=== PATIENT | female | born 1945 | race Caucasian/White ===

== ENCOUNTER 2018-04-20 07:05 | Outpatient (CLI) | payer MEDICARE, OTHER, SELFPAY ==
--- NOTE | 2018-04-20 10:52 | DI.RAD_ITS ---
SYMPTOMS/DIAGNOSIS: SUSHILA BACK AND HIP PAIN, M85.80, OSTEOPENIA BILATERAL HIPS AND PELVIS: The hip joints appear symmetric and well maintained with out significant joint space narrowing. There are mild degenerative changes seen at the sacroiliac joints. Mild degenerative changes are seen in the lower lumbar spine. The bones are normally mineralized. The soft tissues are unremarkable. IMPRESSION: 1. Symmetric and unremarkable hips. 2. Mild degenerative changes seen in the lower lumbar spine.
== END 2018-04-20 07:25 ==
DX: M54.5 Low back pain (principal); M25.551 Pain in right hip; M25.552 Pain in left hip; M47.816 Spondylosis without myelopathy or radiculopathy, lumbar region; M85.88 Other specified disorders of bone density and structure, other site
CPT/HCPCS: 73521

== ENCOUNTER 2018-07-26 02:05 | Outpatient (CLI) | payer MEDICARE, OTHER, SELFPAY ==
[2018-07-26 10:55] LABS: ALT 30 U/L (12-78); AST 17 U/L (15-37); Alkaline Phosphatase 89 U/L (46-116); Anion Gap 8.8 mmol/L (3-11); BUN 14 mg/dL (7-18); Bilirubin, Total 0.8 mg/dL (0.2-1.0); CO2 29.2 mmol/L (21.0-32.0); CREATININE 0.79 mg/dL (0.55-1.02); Calcium 9.6 mg/dL (8.5-10.1); Chloride 102 mmol/L (98-107); Cholesterol 248 mg/dL (50-200); Glucose 90 mg/dL (70-100); HDL Cholesterol 94 mg/dL (40-60); LDL CHOLESTEROL 131 mg/dL (<100); Potassium 4.3 mmol/L (3.5-5.1); Sodium 140 mmol/L (136-145); Total Protein 7.2 g/dL (6.4-8.2); Triglyceride 64 mg/dL (30-150)
== END 2018-07-26 02:25 ==
DX: I10 Essential (primary) hypertension (principal); I83.90 Asymptomatic varicose veins of unspecified lower extremity; M25.551 Pain in right hip; M54.5 Low back pain
CPT/HCPCS: 36415; 80053; 80061; 83721

== ENCOUNTER 2019-08-07 03:35 | Outpatient (CLI) | payer MEDICARE, OTHER, SELFPAY ==
[2019-08-07 11:19] LABS: ALT 25 U/L (14-59); AST 25 U/L (15-37); Albumin 4.2 g/dL (3.4-5.0); Alkaline Phosphatase 92 U/L (46-116); Anion Gap 8.7 mmol/L (3-11); BUN 14 mg/dL (7-18); Bilirubin, Total 1.1 mg/dL (0.2-1.0); CO2 29.3 mmol/L (21.0-32.0); CREATININE 0.88 mg/dL (0.55-1.02); Calcium 9.6 mg/dL (8.5-10.1); Chloride 105 mmol/L (98-107); Glucose 89 mg/dL (74-106); Potassium 4.6 mmol/L (3.5-5.1); Sodium 143 mmol/L (136-145); Total Protein 7.1 g/dL (6.4-8.2)
== END 2019-08-07 03:55 ==
DX: H91.90 Unspecified hearing loss, unspecified ear (principal); I10 Essential (primary) hypertension; M25.552 Pain in left hip; M54.5 Low back pain
CPT/HCPCS: 36415; 80053

== ENCOUNTER 2020-02-16 11:26 | Emergency (ER) | payer MEDICARE, OTHER, SELFPAY ==
[2020-02-16] VITALS (13 sets, daily range): BP systolic 141–177; BP diastolic 77–98; PULSE 53–84; RESP 9–32; TEMP 36.8; O2SAT 98–100
--- NOTE | 2020-02-16 11:15 | RT.EKG_ITS ---
APPROVED REPORT Exam: Resting ECG Patient Location: E HR:59 bpm ECG Measurements Heart Rate 59 AXIS IL 156 P 53 QRSd 107 QRS 28 QT 405 T -8 QTc 400 Conclusion Sinus rhytm, rate 60 LVH with secondary repolarization abnormality...multi-LVH criteria, abnrm ST-T. Similar to 07/01/13
--- NOTE | 2020-02-16 11:49 | ED.GENADUL_ITS ---
Discharge Plan Disposition Patient Disposition: HOME Condition: Improving Discharge Details Clinical Impression: GERD (gastroesophageal reflux disease) Primary Care Provider: Jamila Chinchilla ED Provider: Jason Bautista Home Meds and New Rx's Prescriptions: New sucralfate [Carafate] 100 mg/mL suspension 10 ml PO QACHS 30 Days Qty: 1200 RF: 0 Continued acetaminophen 500 mg capsule 500 mg PO QID PRNRF: 0 Fiber Laxative (methylcellulo) 500 mg tablet 500 mg PO DAILY RF: 0 omeprazole 20 mg capsule,delayed release(DR/EC) 20 mg PO DAILY Qty: 30 RF: 1 cholecalciferol (vitamin D3) 1,000 UNIT capsule 1,000 unit PO DAILY Qty: 100 RF: 4 spironolactone 25 mg tablet 25 mg PO DAILY Qty: 90 RF: 4 No Action ibuprofen [Advil] 200 MG tablet 200 - 600 mg PO TID PRN RF: 0 Discharge Instructions Instructions: GERD (Gastroesophageal Reflux Disease) (ED) Additional Instructions: Avoid fatty, fried, spicy, tomato sauce-based foods. Avoid eating 2 to 3 hours prior to bedtime. Continue to sleep with head of the bed elevated 2-3 pillows. Continue your regular medications but minimize ibuprofen/Advil/Motrin as much as possible. We will have you begin 1 month trial of Carafate as we discussed. Return to the emergency department for any acute concerns. Medical Decision Making 74-year-old female presents on referral from urgent care appointment. She has had 2+ weeks of burning epigastric pain that radiates to her back. Does seem worse or heavier with eating. Often is worse at night. She was placed on omeprazole at her initial visit 2 weeks ago with minimal improvement. She now presents for evaluation of persistent discomfort. She arrives to the ER with blood pressure 177/89, pulse 71, normal oxygenation and no fever. She is tender in the epigastrium. Differential diagnosis includes pancreatitis, mass, persistent GERD, or atypical presentation of acute coronary syndrome. Patient had IV access established, given my plan to, referred for EKG and laboratory testing. She is given a GI cocktail. White blood cell count is 5, hematocrit 40, platelets 284. Chemistries unremarkable with BUN 11, creatinine 0.8. LFTs within normal limits, lipase 69, troponin negative. D-dimer 538. Given the presentation and differential diagnosis under consideration, patient underwent CT scan of the chest, abdomen and pelvis. She has hyper aerated lungs, no acute abnormality noted in the chest. Unremarkable evaluation of the abdomen pelvis. Please see formal report. Patient was observed on a campus monitor and repeat troponin obtained and negative as well. Discussed with patient that we will increase and acid control. We will ask care management to make her a follow-up in the outpatient setting for recheck. She will continue with some lifestyle modifications. She will return for escalation of pain or any other acute concerns. HPI General Mode of arrival: ambulatory . Date/Time Provider Initiated Documentation: 02/16/20 11:26 . Limitations to Documentation: no limitations . Information obtained by: patient . History of Present Illness 74 year old F presents to the emergency department with the chief complaint of Epigastric pain for 2 weeks, referred from urgent care, described as moderate, Quality is d escribed as dull, and is localized to the abdomen. Patient reports radiation to back. Patient started experiencing this day(s) and it has been intermittent. No relieving factors improve symptom(s), Eating worsens symptoms . Patient notes denies fever/chills, loss of appetite and nausea/vomiting. Patient did receive the following treatments prior to arrival, none Related Data Home Medications Medication Instructions Recorded Confirmed cholecalciferol (vitamin D3) 1,000 unit PO DAILY #100 tab-cap 04/13/14 02/16/20 ibuprofen [Advil] 200 - 600 mg PO TID PRN tab-cap 12/03/14 02/16/20 acetaminophen 500 mg capsule 500 mg PO QID PRN cap 06/12/18 02/16/20 spironolactone 25 mg tablet 25 mg PO DAILY #90 tab-cap 03/22/19 02/16/20 methylcellulose (laxative) 500 mg 500 mg PO DAILY 08/02/19 02/16/20 tablet omeprazole 20 mg capsule,delayed 20 mg PO DAILY #30 cap 02/08/20 02/16/20 release sucralfate [Carafate] 10 ml PO QACHS 30 Days #1200 ml 02/16/20 Previous Rx's Medication Instructions Recorded spironolactone 25 mg tablet 25 mg PO DAILY #90 tab-cap 03/22/19 omeprazole 20 mg capsule,delayed 20 mg PO DAILY #30 cap 02/08/20 release sucralfate [Carafate] 10 ml PO QACHS 30 Days #1200 ml 02/16/20 Allergies Allergy/AdvReac Type Severity Reaction Status Date / Time gabapentin AdvReac Severe HALLUCINATI Verified 02/16/20 11:33 ONS BALSAM TREES AdvReac Intermediate ITCHY EYES Uncoded 02/16/20 11:33 SEASONAL ALLERGIES AdvReac Intermediate ITCHY AND Uncoded 02/16/20 11:33 RUNNY EYES General Stated Complaint: Chest Pain NOELLE: 2 Review of Systems Narrative: 6 systems reviewed and otherwise negative [facility] Medical History Bilateral low back pain without sciatica (12/03/14) Essential hypertension (06/01/13) Hearing loss (01/27/06) A.D. 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 w/o sxs Vitamin D deficiency (04/09/14) Surgical History Ligation of fallopian tube Oophrectomy, Left (~2010) with sapingectomy - benign serous cystadenofibroma. Family History Mother , 95 Essential hypertension Stroke Father , 77 CAD (coronary artery disease) Heart disease Prostate cancer Brother , 40 CAD (coronary artery disease) Heart disease Sister Essential hypertension Sister No problems noted. Maternal Grandfather No problems noted. Paternal Grandfather No problems noted. Maternal Grandmother Cancer Paternal Grandmother , CHILDBIRTH No problems noted. Son No problems noted. Son Hyperlipidemia Daughter No problems noted. Social History Smoking/Tobacco Use Status: Former Tobacco Use Quit Date: 02/28/1965 Smoking risk assessment performed?: Yes Alcohol Intake: current Alcohol Intake frequency: 0-2 drinks per day Alcohol type: wine Drug use: Never Substance use type: does not use Counseling given: No Counseling provided: none Caregiver/Support person: No Household members: spouse Housing: house Do you need help understanding health information?: Never Pets and animals: No Sexually active: Yes Do you think of yourself as: straight/heterosexual Current gender identity: female What is your relationship status?: How often do you talk on the phone with friends or family?: three or more times per week How often do you get together with friends or relatives?: three or more times per week How often do you attend sabianism or rastafarian services?: 4 or more times per year Do you belong to any clubs or organized social groups?: yes Panel score (0-1 are the most socially isolated patients): 4 What type of physical activity do you participate in: walking and yoga Duration: 60-90 minutes/day Frequency: decline to answer Melani/Restorationist: Gnosticist Special melani needs: No Seatbelt use: always Helmet use: Yes Helmet use: always Drive intox or ride w/intox steam train driver: No Do you feel safe at home: Yes Do you feel safe in your relationship?: Yes Exam Narrative Exam Narrative: GEN: awake, alert, oriented 3. Pleasant, well groomed, interactive. HEAD: Normocephalic, atraumatic ENT: Mucous membranes moist, oropharynx unremarkable, External ear exam unremarkable EYES: PERRL, EOMI NECK: Full ROM, no LAURA, no menigismus CHEST/RESP: Nontender, clear to auscultation bilateral, no wheeze/rhonchi/rales CARDIOVASCULAR: RRR, no murmur, rub huan. 2+ Rad pulse bilateral ABDOMEN: Soft, epigastric tenderness without rebound or guarding, no mass. +Bowel sounds Back: No midline tenderness, step-off or deformity, no flank tenderness EXT: Full ROM, no edema, no rash Neuro: Grossly normal neurologic exam, conversant, interactive. Psych: Speech fluent, thoughts congruent, affect normal Course Vital Signs Vital signs: Vital Signs Temperature 36.8 C 02/16/20 11:29 Pulse 71 02/16/20 11:29 Respiratory Rate 12 02/16/20 11:29 Blood Pressure 177/89 H 02/16/20 11:29 Pulse Oximetry 99 02/16/20 11:29 Temperature 36.8 C 02/16/20 11:29 Temperature Source Skin 02/16/20 11:29 Pulse 71 02/16/20 11:29 Respiratory Rate 12 02/16/20 11:39 Respiratory Effort Non-Labored 02/16/20 11:39 Respiratory Depth Normal 02/16/20 11:39 Respiratory Pattern Normal 02/16/20 11:39 Blood Pressure 177/89 H 02/16/20 11:29 Blood Pressure Position Supine 02/16/20 11:29 Pulse Oximetry 99 02/16/20 11:29 Oxygen Delivery Method Room Air 02/16/20 11:29 Oxygen Flow Rate 0 02/16/20 11:29 Pain Level 4 02/16/20 11:39
[2020-02-16 12:08] LABS: Abs Immature Grans 0.01 10^3/uL (0.0-0.06); Absolute Basophil Count 0.04 10^3/uL (0.0-0.2); Absolute Eosinophil Count 0.05 10^3/uL (0.0-0.7); Absolute Lymphocyte Count 1.51 10^3/uL (1.2-3.4); Absolute Monocyte Count 0.71 10^3/uL (0.1-0.8); Absolute Neutrophil Count 3.07 10^3/uL (1.2-6.7); Basophils % 0.7; Eosinophils % 0.9; HCT 40.3 % (36.0-46.0); HGB 13.5 g/dL (11.2-15.7); Immature Grans % 0.2; MCH 30.3 pg (27.0-33.0); MCHC 33.5 % (32.0-36.0); MCV 90.6 fL (80-95); MPV 11.4 fL (8.0-11.0); Monocytes % 13.2; Nucleated RBC 0 %; Platelet Count 284 10^3/uL (130-400); RBC 4.45 10^6/uL (3.93-5.22); RDW 11.5 % (11.7-14.6); RDW-SD 38.2 fL; WBC 5.39 10^3/uL (4.4-10.8)
[2020-02-16 12:23] LABS: ALT 19 U/L (14-59); AST 18 U/L (15-37); Albumin 4.3 g/dL (3.4-5.0); Alkaline Phosphatase 91 U/L (46-116); Anion Gap 8.2 mmol/L (3-11); BUN 11 mg/dL (7-18); Bilirubin, Total 0.7 mg/dL (0.2-1.0); CO2 27.8 mmol/L (21.0-32.0); CREATININE 0.85 mg/dL (0.55-1.02); Calcium 9.7 mg/dL (8.5-10.1); Chloride 100 mmol/L (98-107); Glucose 89 mg/dL (74-106); Lipase 69 U/L (73-393); Magnesium 1.8 mg/dL (1.8-2.4); Potassium 3.6 mmol/L (3.5-5.1); Sodium 136 mmol/L (136-145); Total Protein 7.9 g/dL (6.4-8.2); Troponin I < 0.05 ng/mL (<0.06)
--- NOTE | 2020-02-16 12:25 | DI.CT_ITS ---
EXAM: CT CHEST/ABD/PEL W CLINICAL HISTORY: epigastric pain, radiates to back, anorexic TECHNIQUE: Imaging Protocol: Axial computed tomography images with coronal and sagittal reformatted images were created and reviewed CONTRAST MATERIAL: Intravenous: Omnipaque 350 Contrast volume:99 mL Oral: No COMPARISON: CT ABD PELVIS WITH CONTRAST from 10/14/2010 FINDINGS: CHEST: Tracheobronchial tree: Patent where visualized. Mediastinum and Jeanette: No dominant adenopathy or fluid collection. Pulmonary parenchyma: No consolidation or dominant measurable mass. No architectural distortion. Pleura: No effusion or pneumothorax. Heart: The heart is not dilated. Mild coronary artery calcification. No pericardial effusion. Aorta: Thoracic aorta non-dilated. Mild atherosclerosis. Lymph nodes: Within normal limits. Bones:Degenerative changes. Soft tissues: Unremarkable. ABDOMEN: Liver: Normal density. No measurable mass. Portal, Superior Mesenteric, and Splenic Veins: Unremarkable. Gallbladder and Biliary Tract: No radiodense calculus or dilation. Pancreas: Normal density, no abnormal calcifications or inflammatory process. Spleen: Normal. Adrenals: There is again seen a peripherally calcified left adrenal mass. A right adrenal gland is u nremarkable. Kidneys: Normal size, contour and axis. No radiodense stones or obstructive uropathy. No masses seen. Note is made of a retroaortic left renal vein. Abdominal Aorta: Abdominal portion non-dilated. Mild atherosclerosis. Bowel: No obstruction or bowel wall thickening. Appendix is unremarkable. Peritoneal Cavity: No ascites, collection or mesenteric inflammatory response. Lymph Nodes: Within normal limits. Bones: Degenerative changes in the spine. Soft Tissues: Unremarkable. PELVIS: Bladder: Symmetric distention, no gross wall thickening. Reproductive Organs: Unremarkable as visualized. Lymph Nodes: Within normal limits. Bones: Please see above. IMPRESSION: 1. No acute abdominal or pelvic process. 2. No acute pulmonary process. RADIATION DOSE DELIVERED: 957.46mGy.cm Total DLP DATA REPOSITORY: All CT scans at this facility are submitted to the National Radiology Data Registry (NRDR) Dose Index Registry (DIR) with the [employer] (ACR). RADIATION OPTIMIZATION: All CT scans at this facility use at least one of these dose optimization te chniques: automated exposure control; mA and/or kV adjustment per patient size (includes targeted exa ms where dose is matched to clinical indication); or iterative reconstruction.
[2020-02-16 12:39] LABS: D-Dimer 538 ng/mlFEU (<500)
--- NOTE | 2020-02-16 12:45 | NUR.NOTE ---
Epigastric pain improved after GI cocktail. Plan for CT with oral contrast.
[2020-02-16] MEDS: Omnipaque 350 MG/ML 100 ML BTL IV (13:45)
--- NOTE | 2020-02-16 14:40 | DI.VRAD_ITS ---
PROCEDURE INFORMATION: Exam: CT Chest With Contrast; Diagnostic Exam date and time: 02/16/2020 1:56 PM Age: 74 years old Clinical indication: Other: Epigastric pain, radiates to back; Other: Cp TECHNIQUE: Imaging protocol: Diagnostic computed tomography of the chest with intravenous contrast. Contrast material: OMNIPAQUE 350; Contrast volume: 100 ml; Contrast route: INTRAVENOUS (IV); Other contrast: Oral, omnipaque 350, 800; COMPARISON: CR CHEST 2 VIEWS PA,LAT 07/01/2013 1:34 AM. Report not available. FINDINGS: Lungs: The lungs are hyperaerated consistent with a degree of COPD. Pleural space: Unremarkable. No pneumothorax. No pleural effusion. Heart: Coronary artery calcifications/stents noted. Aorta: Unremarkable. No aortic aneurysm. Lymph nodes: Unremarkable. No enlarged lymph nodes. Bones/joints: Unremarkable. No acute fracture. Soft tissues: Unremarkable. IMPRESSION: No evidence for acute abnormality in the chest. COPD noted. PROCEDURE INFORMATION: Exam: CT Abdomen And Pelvis With Contrast Exam date and time: 02/16/2020 1:56 PM Age: 74 years old Clinical indication: Other: Epigastric pain, radiates to back; Other: Cp TECHNIQUE: Imaging protocol: Computed tomography of the abdomen and pelvis with intravenous contrast. Radiation optimization: All CT scans at this facility use at least one of these dose optimization techniques: automated exposure control; mA and/or kV adjustment per patient size (includes targeted exams where dose is matched to clinical indication); or iterative reconstruction. Contrast material: OMNIPAQUE 350; Contrast volume: 100 ml; Contrast route: INTRAVENOUS (IV); Other contrast: Oral, omnipaque 350, 800; Other technique: Technique more: GI contrast given. COMPARISON: CR CHEST 2 VIEWS PA,LAT 07/01/2013 1:34 AM FINDINGS: Liver: Normal. No mass. Gallbladder and bile ducts: Normal. No calcified stones. No ductal dilation. Pancreas: Normal. No ductal dilation. Spleen: Normal. No splenomegaly. Adrenal glands: Peripherally calcified left adrenal lesion noted 1.6 cm, possible old hemorrhage. Kidneys and ureters: Normal. No hydronephrosis. Stomach and bowel: Moderate fecal retention pattern. Appendix: No evidence of appendicitis. Intraperitoneal space: Unremarkable. No free air. No significant fluid collection. Vasculature: Unremarkable. No abdominal aortic aneurysm. Lymph nodes: Unremarkable. No enlarged lymph nodes. Urinary bladder: Unremarkable as visualized. Reproductive: Unremarkable as visualized. Bones/joints: Unremarkable. No acute fracture. Soft tissues: Unremarkable. Other findings: Probable perineural cyst S3-4. IMPRESSION: No evidence for acute abnormality to account for symptoms. Dictated and Authenticated by: Jana Benton MD. Ordering:MELIZA Gomez MD
[2020-02-16 15:09] LABS: Troponin I < 0.05 ng/mL (<0.06)
--- NOTE | 2020-02-18 07:03 | NUR.NOTE ---
Referral faxedto pcp for follow up Víctor Elliott Note:
== END 2020-02-16 15:35 | disposition home or self-care (01) ==
PROVIDERS: Emergency Provider Emergency Medicine
DX: R10.13 Epigastric pain (principal); K21.9 Gastro-esophageal reflux disease without esophagitis; I10 Essential (primary) hypertension
CPT/HCPCS: 36415; 74177; 80053; 83690; 93005; 99285; 71260; 83735; 84484; 85025; 85379; 93010; 99284; J3490

== ENCOUNTER 2020-05-12 11:20 | Outpatient (CLI) | payer MEDICARE, OTHER, SELFPAY ==
[2020-05-12 12:23] LABS: Abs Immature Grans 0.01 10^3/uL (0.0-0.06); Absolute Basophil Count 0.05 10^3/uL (0.0-0.2); Absolute Eosinophil Count 0.11 10^3/uL (0.0-0.7); Absolute Lymphocyte Count 1.74 10^3/uL (1.2-3.4); Absolute Monocyte Count 0.56 10^3/uL (0.1-0.8); Absolute Neutrophil Count 4.07 10^3/uL (1.2-6.7); Basophils % 0.8; Eosinophils % 1.7; HCT 38.8 % (36.0-46.0); HGB 12.8 g/dL (11.2-15.7); Immature Grans % 0.2; Lymphocytes % 26.6; MCH 30.7 pg (27.0-33.0); MPV 11.3 fL (8.0-11.0); Monocytes % 8.6; Neutrophils % 62.1; Nucleated RBC 0 %; Platelet Count 308 10^3/uL (130-400); RBC 4.17 10^6/uL (3.93-5.22); RDW 12.1 % (11.7-14.6); RDW-SD 42.2 fL; WBC 6.54 10^3/uL (4.4-10.8)
[2020-05-12 13:20] LABS: ALT 23 U/L (14-59); AST 21 U/L (15-37); Alkaline Phosphatase 81 U/L (46-116); Anion Gap 8.5 mmol/L (3-11); BUN 12 mg/dL (7-18); Bilirubin, Total 0.7 mg/dL (0.2-1.0); CO2 31.5 mmol/L (21.0-32.0); CREATININE 0.7 mg/dL (0.55-1.02); Calcium 9.7 mg/dL (8.5-10.1); Chloride 102 mmol/L (98-107); Glucose 89 mg/dL (74-106); Potassium 4.3 mmol/L (3.5-5.1); Sodium 142 mmol/L (136-145); TSH 1.54 uIU/mL (0.36-3.74); Total Protein 7.2 g/dL (6.4-8.2)
== END 2020-05-12 11:21 | disposition home or self-care (01) ==
LOC: LOS 11:20
PROVIDERS: PCP Family Medicine; Visit Provider Family Medicine
DX: R53.83 Other fatigue (principal); E55.9 Vitamin D deficiency, unspecified; R90.89 Other abnormal findings on diagnostic imaging of central nervous system
CPT/HCPCS: 36415; 80053; 84443; 85025

== ENCOUNTER 2020-11-24 02:22 | Outpatient (CLI) | payer MEDICARE, SELFPAY ==
--- NOTE | 2020-11-24 10:46 | DI.MAMMO_ITS ---
Exam(s) MAMMO SCREENING EXAM: MAMMO SCREENING CLINICAL HISTORY: screening,Z12.39. TECHNIQUE: Bilateral full field digital CC and MLO mammographic images were obtained with 3D tomosyn thesis and utilizing computer aided detection (CAD). COMPARISON: Prior mammograms dating back to 2012, the most recent being April 2017. FINDINGS: There are no new spiculated masses nor malignant appearing microcalcification groups. There is no significant architectural distortion nor skin thickening-retraction. IMPRESSION: No radiographic evidence of malignancy. BI-RADS Category 1 - Negative Breast Density - Category B - Scattered areas of fibroglandular density Breast density Category C or D implies that the patient has dense breast tissue. Dense breast tissue can make it harder to find cancer on a mammogram. Dense breast tissue is also associated with an incr eased risk of breast cancer. This information about the result of the mammogram report was provided to the patient to raise their awareness. Use this report when you speak with the patient about their risks for breast cancer, which includes their family history. At that time, you may recommend additional screening tests (Ultrasoun d or MRI) as these tests may add significant information. A negative radiographic report should not delay biopsy if a dominant or clinically suspicious mass is present. Up to ten percent of cancers are not identified on mammography. A negative report may reinforce clinical impression. Adenosis and dense breasts may obscure an underlying neoplasm. False positive reports average 6 to 10%. Patient will receive a letter notifying them of these results.
== END 2020-11-24 02:42 ==
PROVIDERS: PCP Family Medicine; Visit Provider Family Medicine
DX: Z12.31 Encounter for screening mammogram for malignant neoplasm of breast (principal)
CPT/HCPCS: 77063; 77067

== ENCOUNTER 2021-08-30 10:04 | Emergency (ER) | payer MEDICARE, OTHER, SELFPAY ==
[2021-08-30 10:17] VITALS: BP 215/89; PULSE 58; RESP 18; TEMP 36.7; O2SAT 99
--- NOTE | 2021-08-30 10:30 | DI.RAD_ITS ---
Exam(s) XR HUMERUS LT EXAM: XR HUMERUS LT CLINICAL HISTORY: fall. TECHNIQUE: 2D digital imaging was performed. COMPARISON: No exams were available for comparison FINDINGS: 3 views There is a comminuted and mildly impacted fracture of the humeral head-neck. Greater tuberosity is a lso fractured. Minimal displacement. No dislocation glenohumeral joint. No fracture seen more dist ally in the humerus and elbow region on these images IMPRESSION: Comminuted fracture of the humeral head-neck. DATA REPOSITORY: RADIATION DOSE DELIVERED:
--- NOTE | 2021-08-30 11:10 | DI.VRAD_ITS ---
PROCEDURE INFORMATION: Exam: XR Left Humerus Exam date and time: 08/30/2021 10:56 AM Age: 76 years old Clinical indication: Injury or trauma; Fall; Blunt trauma (contusions or hematomas); Shoulder; Left TECHNIQUE: Imaging protocol: Radiologic exam of the Left humerus. Views: 2 or more views. COMPARISON: CT CHEST/ABD/PEL W 02/16/2020 1:50 PM FINDINGS: Bones/joints: Bony structures are osteopenic. There is a comminuted fracture of the proximal left humerus including the neck and the greater tuberosity which is a separate fracture fragment. No fracture is seen in the distal humerus. The scapula, visualized left upper ribs appear intact on the film. Soft tissues: Soft tissues are unremarkable. IMPRESSION: Comminuted fracture proximal left humerus. Dictated and Authenticated by: Ethel Bennett MD. Ordering:ELIZABETH Ricks MD
--- NOTE | 2021-08-30 11:14 | W.ED.GENAD ---
Discharge Plan Disposition Patient Disposition: HOME Condition: Stable Discharge Details Clinical Impression: Closed fracture of left proximal humerus, Hypertension Primary Care Provider: Vero Sanchez ED Provider: Millicent Veronica Home Meds and New Rx's Prescriptions: New oxycodone 5 mg tablet 5 mg PO TID PRN (Reason: pain) Qty: 7 0RF lisinopril 10 mg tablet 10 mg PO DAILY Qty: 20 0RF Continued acetaminophen 500 mg capsule 500 mg PO QID PRN Fiber Laxative (methylcellulo) 500 mg tablet 500 mg PO DAILY cholecalciferol (vitamin D3) 1,000 UNIT capsule 1,000 unit PO DAILY Qty: 100 ibuprofen [Advil] 200 MG tablet 200 - 600 mg PO TID PRN Discharge Instructions Instructions: Arm Fracture in Adults (ED), Hypertension (ED) Additional Instructions: As we discussed, you have a fracture to the upper aspect of your left humerus. I would like for you to follow-up with orthopedics. Please call Tuesday to schedule appointment, number listed below. In the meantime, please encourage rest, ice, elevation. May continue with Tylenol and/or ibuprofen as needed for discomfort. If this is insufficient at alleviating her discomfort, you may use the oxycodone as prescribed. However, please do not drive or drink alcohol while using this medication and keep in a safe place. If you develop any new or worsening symptoms please seek care urgently once again. Your blood pressure was notably elevated here today. As discussed, we are starting you on a daily dose of lisinopril. You were given your dose here today. Next dose is due tomorrow, this is also available at [facility]. Please continue to monitor blood pressure at home and record these. Please discuss with primary care call today to schedule follow-up appointment in the next week for reevaluation Referrals: Ozzy Cid MD [ [facility] STAFF PHYSICIAN] - Discharge Data Discharge Date/Time-TO BE ENTERED AT DEPARTURE: 08/30/21 13:00 Medical Decision Making Patient is a pleasant [id number]-[id number] 76-year-old female accompanied by her , chief complaint of left upper arm pain. Patient reports that she was cooking this morning in her kitchen when she accidentally tripped over a stool leg and fell landing on her left shoulder. States that she suffered some slight ecchymosis to bilateral knees but these are nontender currently. Has been ambulatory since the incident. She denies any numbness or tingling. No headache, head injury. Denies any neck or back pain. On exam, patient appears anxious and uncomfortable. She is splinting the left upper arm. Patient is notably hypertensive. She is neurovascularly intact, in particular axillary nerve function is normal. 2+ distal pulses. She does have good range of motion of the elbow although she does have some radiation of pain from the upper aspect of the humerus with, in particular, extension of the elbow. 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 No pain or deformity to the clavicle. No C-spine tenderness. No swelling, opening of the skin tenting. Will obtain x-rays to evaluate for potential fracture. FINDINGS: Bones/joints: Bony structures are osteopenic. There is a comminuted fracture of the proximal left humerus including the neck and the greater tuberosity which is a separate fracture fragment. No fracture is seen in the distal humerus. The scapula, visualized left upper ribs appear intact on the film. Soft tissues: Soft tissues are unremarkable. IMPRESSION: Comminuted fracture proximal left humerus. Discussed these findings with the patient. Will refer to orthopedics. Will place in sling for immobilization. Encouraged rest, ice, elevation. Tylenol and ibuprofen as needed for discomfort. Patient and I discussed pain management at length. Have decided for a short course of oxycodone in the event pain becomes unmanageable, particularly at night. We did discuss the side effects and risks associated with this medicine. Abdulaziz was initially to be quite hypertensive, this was thought to be with her discomfort exacerbating her underlying known HTN. Patient does not take antihypertensivees. She was stopped one year ago. States that her BP fluctuates frequently. Can be quite low with systolic in the 90s making medication more difficult. Patient has no symptoms of hypertenisve emergency. Despite pain being much more managed, her BP continues to be 229/101. This was manual BP with patient resting. Concerned that despite there being no sxs of hypertensive emergency at this time, concerned that this level of elevation is unacceptable and could signficantly increase risk snf. Will touch base with PCP leslie. Consulted with Dr. Harrison regarding patients elevated BP. We discussed the concern of her signficantly elevated BP, but also her hx of signficantly labile BP and intermittent lightheadedness with standing too abruptly. She recommended either starting patient on 10mg Lisinopril QD or 0.1 Clonidine which she could use PRN. Discussed these options with patient and her , they prefer the daily dosing as she has no sxs of her HTN. She was given first dose here. I encouraged that she monitor BP at home, she has BP cuff at home. I did encourage that she stand slow as she has had this sensation of lightheadedness historically. Encouraged that she f/u with PCP to discuss BP and medications further. In regard to fracture, she will continue to wear the sling. [employer]curage RICE. Pain management as above. Referral to orthopedics. She will call Tuesday to schedule appointment. Return precautiosn discussed. All of her questions and concerns were addressed, she is in agreement with this plan. HPI General Date/Time Provider Initiated Documentation: 08/30/21 10:21. Limitations to Documentation: no limitations. Information obtained by: patient, family and RN notes reviewed. History of Present Illness 76 year old F presents to the emergency department with the chief complaint of left arm pain, described as severe, Quality is described as constant, and is localized to the left and upper extremity. Patient extremity (from proximal humerus toward the elbow). Patient started experiencing this minute(s) and it has been constant. Immobilization improves symptom(s), Movement worsens symptoms . Patient notes no other symptoms.. Patient did receive the following treatments prior to arrival, none Related Data Home Medications Medication Instructions Recorded Confirmed cholecalciferol (vitamin D3) 25 1,000 unit PO DAILY #100 tab-caps 04/13/14 08/30/21 mcg (1,000 unit) capsule ibuprofen 200 mg tablet (Advil) 200 - 600 mg PO TID PRN 12/03/14 08/30/21 acetaminophen 500 mg capsule 500 mg PO QID PRN 06/12/18 08/30/21 methylcellulose (laxative) 500 mg 500 mg PO DAILY 08/02/19 08/30/21 tablet (Fiber Laxative (methylcellulose)) lisinopril 10 mg tablet 10 mg PO DAILY #20 tabs 08/30/21 oxycodone 5 mg tablet 5 mg PO TID PRN pain #7 tabs 08/30/21 Previous Rx's Medication Instructions Recorded lisinopril 10 mg tablet 10 mg PO DAILY #20 tabs 08/30/21 oxycodone 5 mg tablet 5 mg PO TID PRN pain #7 tabs 08/30/21 Allergies Allergy/AdvReac Type Severity Reaction Status Date / Time shrimp Allergy Mild Hives Verified 04/30/21 13:11 gabapentin AdvReac Severe HALLUCINATI Verified 04/30/21 13:11 ONS BALSAM TREES AdvReac Intermediate ITCHY EYES Uncoded 04/30/21 13:11 SEASONAL ALLERGIES AdvReac Intermediate ITCHY AND Uncoded 04/30/21 13:11 RUNNY EYES General Stated Complaint: Orthopedic NOELLE: 4 Review of Systems Constitutional Constitutional: Reports as per HPI, Denies chills, Denies fever(s) and Denies headache(s) ENT Ears, Nose, Mouth, and Throat: Denies headache(s) Musculoskeletal Musculoskeletal: Reports as per HPI and Denies tingling Integumentary/Breasts Skin/Breast: Reports as per HPI, Denies rash and Denies wounds Neurologic Neurologic: Reports as per HPI, Denies headache(s), Denies tingling and Denies paresthesias PFSH All Active Problems (Updated 08/30/21 @ 12:40 by NANCY Luu) Closed fracture of left proximal humerus (Acute) Hypertension (Chronic) Gastroesophageal reflux disease (Chronic) Allergic reaction (Acute) Anxiety and depression (Chronic) History of bilateral ligation of fallopian tubes (Acute) History of unilateral oophorectomy (Acute) Magnetic resonance imaging of brain abnormal (Acute 06/01/13) Neuropathy (Acute 06/01/13) Ovarian cyst (Acute 12/08/10) Hip pain, left (Acute) Bilateral low back pain without sciatica (Acute 12/03/14) Essential hypertension (Chronic 06/01/13) Hearing loss (Chronic 01/27/06) A.D. 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 w/o sxs Vitamin D deficiency (Chronic 04/09/14) Medical History Nausea Surgical History Ligation of fallopian tube Oophrectomy, Left (~2010) with sapingectomy - benign serous cystadenofibroma. Family History Mother , 95 Essential hypertension Stroke Father , 77 CAD (coronary artery disease) Heart disease Prostate cancer Brother , 40 CAD (coronary artery disease) Heart disease Sister Essential hypertension Sister No problems noted. Maternal Grandfather No problems noted. Paternal Grandfather No problems noted. Maternal Grandmother Cancer Paternal Grandmother , CHILDBIRTH No problems noted. Son No problems noted. Son Hyperlipidemia Daughter No problems noted. Social History Smoking/Tobacco Use Status: Former Tobacco Use Quit Date: 02/28/1965 Second Hand Exposure: Yes Smoking risk assessment performed?: Yes Alcohol Intake: current Alcohol Intake frequency: a few times a week Alcohol type: wine Drug use: Never Substance use type: does not use Counseling given: No Counseling provided: none Caregiver/Support person: No Household members: spouse Housing: house Communication Needs: Hard of Hearing and Corrective Lenses Do you need help understanding health information?: Rarely Pets and animals: No Sexually active: Yes Do you think of yourself as: straight/heterosexual Current gender identity: female What is your relationship status?: How often do you talk on the phone with friends or family?: three or more times per week How often do you attend shinto or buddhist services?: 4 or more times per year Do you belong to any clubs or organized social groups?: yes Panel score (0-1 are the most socially isolated patients): 4 What type of physical activity do you participate in: walking and yoga Duration: 60-90 minutes/day Frequency: 3-4 times per week Melani/Lutheran: Anglican Seatbelt use: always Helmet use: Yes Helmet use: always Drive intox or ride w/intox lifter driver: No Do you feel safe at home: Yes Do you feel safe in your relationship?: Yes Exam Const General: cooperative, healthy appearing, uncomfortable (splinting left arm), no acute distress, well developed and well groomed Nutritional Appearance: average body habitus and well nourished Orientation: alert and awake Resp Effort & Inspection: normal respiratory effort, able to speak in complete sentences and no respiratory distress Cardio Rate: regular rate Rhythm: regular rhythm Back/Spine/Pelvis Cervical Spine: normal cervical lordosis, cervical ROM normal, No cervical spinal tenderness and No step off deformity Skin General skin exam: no rashes or lesions noted Lesions: no lesions Rashes: no rashes Trauma: no lacerations or abrasions Neuro General: patient alert and patient awake Cognition: normal cognition Speech: speech normal Gait: normal gait Motor: muscle tone normal throughout Sensory Exam: no sensory deficits noted Extrem Shoulder/upper arm images: 1. Area of maximal discomfort. No palpable defect. No break in the skin or swelling. Full ROM of elbow, wrist, hand. Neurologically intact, no axillary nerve dysfunction. 2+ distal pulses, intact capillary refill. Psych Appearance: grossly normal and well kempt Mental Status: mental status grossly normal Speech and Movement: speech and movement normal Course Vital Signs Vital signs: Vital Signs Temperature 36.7 C 08/30/21 10:17 Pulse 58 L 08/30/21 10:17 Respiratory Rate 18 08/30/21 10:17 Blood Pressure 215/89 H 08/30/21 10:17 Pulse Oximetry 99 08/30/21 10:17 Temperature 36.7 C 08/30/21 10:17 Temperature Source Temporal Artery Scan 08/30/21 10:17 Pulse 58 L 08/30/21 10:17 Respiratory Rate 18 08/30/21 10:17 Respiratory Effort 08/30/21 10:30 Blood Pressure 215/89 H 08/30/21 10:17 Blood Pressure Position Sitting 08/30/21 10:17 Pulse Oximetry 99 08/30/21 10:17 Oxygen Delivery Method Room Air 08/30/21 10:17 Oxygen Flow Rate 0 08/30/21 10:17 Pain Level 2 08/30/21 10:36 PAWSS Have you Been Recently Intoxicated or Drunk Within the Last 30 days?: No Have you Ever Experienced Previous Episodes of Alcohol Withdrawal?: No Have you ever Experienced Withdrawal Seizures?: No Have you ever Experienced Delirium Tremens(DT)s?: No Have you ever undergone Alcohol Rehabilitation Treatment (i.e, inpt ot outpatient treatment programs)?: No Have you ever Experienced Blackouts?: No Have you ever Combined Alcohol with other Downers within the last 90 days?: No Have you ever Combined Alcohol with any other Substance of Abuse during the last 90 days?: No Positive Blood Alcohol level on Presentation? [PCS.BAL]: No Evidence of Increased Autonomic Activity (i.e. HR>120, tremor, sweating, agitation, nausea)?: No Result: 0
[2021-08-30 12:13] VITALS: BP 229/101; PULSE 59; TEMP 36.7; O2SAT 97
[2021-08-30] MEDS: Lisinopril 10 MG TAB PO (12:57)
== END 2021-08-30 13:00 | disposition home or self-care (01) ==
PROVIDERS: Emergency Provider Physician Assistant; PCP Nurse Practitioner Family
DX: S42.252A Displaced fracture of greater tuberosity of left humerus, initial encounter for closed fracture (principal); S42.212A Unspecified displaced fracture of surgical neck of left humerus, initial encounter for closed fracture; S80.01XA Contusion of right knee, initial encounter; S80.02XA Contusion of left knee, initial encounter; I10 Essential (primary) hypertension; Z87.891 Personal history of nicotine dependence; W01.0XXA Fall on same level from slipping, tripping and stumbling without subsequent striking against object, initial encounter; Y93.G3 Activity, cooking and baking; Y92.89 Other specified places as the place of occurrence of the external cause
CPT/HCPCS: 29105; 99283; 73060; 99284

== ENCOUNTER 2021-09-09 03:25 | Outpatient (CLI) | payer MEDICARE, OTHER, SELFPAY ==
[2021-09-09 15:57] LABS: Anion Gap 6.4 mmol/L (3-11); BUN 17 mg/dL (7-18); CO2 30.6 mmol/L (21.0-32.0); CREATININE 0.8 mg/dL (0.55-1.02); Chloride 102 mmol/L (98-107); Glucose 147 mg/dL (74-106); Potassium 3.8 mmol/L (3.5-5.1); Sodium 139 mmol/L (136-145)
== END 2021-09-09 03:26 | disposition home or self-care (01) ==
LOC: LBO 03:25
PROVIDERS: PCP Nurse Practitioner Family; Visit Provider Family Medicine
DX: I10 Essential (primary) hypertension (principal)
CPT/HCPCS: 36415; 80048; 99204; 99214; 73030

== ENCOUNTER 2021-09-09 15:30 | Outpatient (CLI) | payer MEDICARE, OTHER, SELFPAY ==
--- NOTE | 2021-09-09 15:15 | DI.RAD_ITS ---
Exam(s) XR SHOULDER LT COMPLETE 2+V EXAM: XR SHOULDER LT COMPLETE 2+V CLINICAL HISTORY: CLOSED FX OF LEFT PROXIMAL HUMERUS. TECHNIQUE: 2D digital imaging was performed. COMPARISON: CR,XR XR HUMERUS LT from 08/30/2021 FINDINGS: Two views There is a comminuted fracture of the humeral head and neck. No dislocation of the glenohumeral join t. Greater tuberosity is involved but not significantly displaced. Subacromial space height is norm al and there are no calcific densities within the subacromial space. AC joint is not dislocated. Gl enohumeral joint exhibits minimal degenerative changes. No osseous lesions. No adjacent rib fractur es evident. IMPRESSION: Humeral head-neck fracture. Minimal displacement. No dislocation. DATA REPOSITORY: RADIATION DOSE DELIVERED:
== END 2021-09-09 15:31 | disposition home or self-care (01) ==
LOC: DIORS 15:30
PROVIDERS: PCP Nurse Practitioner Family; Referring Provider Nurse Practitioner Family; Visit Provider Student in an Organized Health Care Education/Training Program
DX: S42.202A Unspecified fracture of upper end of left humerus, initial encounter for closed fracture (principal); X58.XXXA Exposure to other specified factors, initial encounter
CPT/HCPCS: 99214; 73030

== ENCOUNTER 2021-09-11 02:00 | Outpatient (CLI) | payer MEDICARE, OTHER, SELFPAY ==
--- OUTSIDE RECORDS SUMMARY | 2021-09-11 02:02 | XMS_ITS | Encounter Summary ---
:1945 Author Organization [facility] [place] [address] Care Team Providers Name Role Phone Faye Way MD Primary Care Provider Encounter Details Date Type Department Care Team Description 08/09/2013 Office Visit Neurology at [facility] Jace Nichols, Paresthesia ([facility]) [place] [address] NEUR[address] DEPT. [phone] [place], [place] [address] Social History Tobacco Use Types Packs/Day Years Used Date Never Smoker Smokeless Tobacco: Never Used Alcohol Use Standard Drinks/Week Comments Yes 0 (1 standard drink = 0.6 oz pure alcoho l) social Alcohol Habits Answer Date Recorded How often do you have a drink containing alcohol? Not asked How many drinks containing alcohol do you have on a typical Not asked day when you are drinking? How often do you have six or more drinks on one occasion? No t asked Comment: social 08/09/2013 Sex Assigned at Date Recorded Not on file documented as of this encounter Last Filed Vital Signs Vital Sign Reading Time Taken Comments Blood Pressure 172/66 08/09/2013 9:47 AM EDT Pulse 46 08/09/2013 9:47 AM EDT Temperature - - Respiratory Rate - - Oxygen Saturation - - Inhaled Oxygen Concentration - - Weight 65.8 kg (145 lb) 08/09/2013 9:47 AM EDT Height 170.2 cm (5' 7) 08/09/2013 9:47 AM EDT Body Mass Index 22.71 08/09/2013 9:47 AM EDT documented in this encounter Progress Notes Jace Nichols MD - 08/09/2013 11:23 AM EDT I was asked to see Analia Milner at the request of Dr. Way for the evaluation of possible peripheral neuropathy. Analia is a 68-year-old female who is accompanied by her today. She noted in March that she started having some odd sensation, mainly in her calves, but also she could feel it through her legs up the hip. She would feel like water was running through her legs; it was not painful. She did not really notice it with walking. It has improved as of late. It does not bother her at night, although it is more noticeable at night if she is off her feet. She does not have any back pain or radicular pain with it. She does also have some intermittent brief what she describes as picky sensations involving either her legs her arms, sometimes her face. They are just very brief. That is improved as well, as of late. She did try gabapentin briefly, but it led to some intolerable side effects of hallucinations. She did have some blood work through Dr. Way including TSH, B12, CBC, and LFTs that were unrevealing. She denies any focal weakness. She does get lightheaded at times when she stands up to quickly. She has been having her blood pressure monitored by Dr. Way. She denies any significant balance issues. She denies any headaches. Past Medical History: Includes history of hypertension. History of white matter changes on brain MRI. She saw Dr. Moreno in 2007. It was determined they were related to aging and no any concern for demyelinating disease. She had the MRI because of hearing loss. She has no other concerning symptoms. Current outpatient prescriptions:CYCLOSPORINE (RESTASIS OPHT), Apply to eye 2 times daily. Both eyes, Disp: , Rfl: ; spironolactone (ALDACTONE) 25 mg tablet, Take 25 mg by mouth daily., Disp: , Rfl: Allergies Allergen Reactions ??? Gabapentin Hallucinations Per pt Family History: No history of neuropathy, of note. Social History: She lives in [facility] with her . 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 She does not smoke, drinks alcohol occasionally. Review of Systems: As per history of presenting illness, is notable for some decrease in energy. She has no issues with bowel or bladder. In general she appears in no distress. HEENT: Mucous membranes are moist. Sclerae are anicteric. Oropharynx is clear. Cardiovascular: Heart has a regular rate and rhythm, S1 S2, no murmurs, no peripheral edema. Respiratory: Lungs are clear to auscultation bilaterally. Musculoskeletal: See neurological exam. Skin: No rashes. Neurological: Mental status: She is alert, oriented, and attentive to questions. Speech is fluent and goal directed. Affect is appropriate. No dysarthria. Cranial nerve testing II through XII is intact including extraocular muscles intact. Pupils are equal, round, and reactive to light. Normal facial sensation and strength. Motor exam: There is no muscle atrophy or fasciculations. Tone is normal. Power is 5 out of 5 throughout. No pronator drift. Reflexes are 1 out of 4 throughout except for trace right ankle jerk. Cerebellar: Normal atecyu-wx-vknw-finger and wgjr-zbka-pnlq testing. Sensory exam is notable for moderate vibratory sense loss in the toes. Mild at the ankles. Joint position sense is intact in the toes. Normal light touch and temperature in the feet and hands. Routine gait testing is normal, although she has some difficulty with tandem gait. Romberg is with some mild sway. Laboratory Data: See history of presenting illness. She did have TSH, B12, CBC, LFTs, and blood sugars through her PCP that was reported as unremarkable. EMG Nerve Conduction Studies: Please see report for complete data. The left sural amplitude was 9 microvolts, which for her age is within normal limits. Peroneal and tibial motor studies were normal, as were their F waves. Radial sensory and ulnar motor study tested and normal. Focused EMG of left lower extremity for tibialis anterior and medial head of gastroc shows no active denervation and normal motor unit action potentials. Assessment: Analia Milner is a 68-year-old female with some intermittent odd paresthesias in her legs. Her nerve conduction studies are unrevealing and do not demonstrate clear cut electrophysiologic evidence of peripheral neuropathy. The sural amplitude is borderline; however, for her age it does appear within normal limits. The intermittent sensation in her calves up proximally would be quite atypical for peripheral neuropathy as well. She does not have any radicular pain or low back pain to suggest this is a spinal stenosis. Occasionally patients can present with atypical paresthesias with spinal stenosis. Nonetheless, again, strength is fine. Bladder function is fine and no pain, which is all reassuring. As for the other brief pains she has had in her upper and lower extremities, those have improved. I am not sure what to make of those and it does not raise concern for any particular neurologic disorder. With respect to her previous MRI brains, I would agree that the clinical picture with those does raise concern for demyelinating disorder/MS and does fit more with age related small vessel disease. I do not see a role for repeating brain MRI. Recommendations: No further neurological followup is indicated. We did discuss that no further testing is indicated. With respect to symptomatic treatment, as she has had improvement, I would not have any further recommendations in that regard. She could not tolerate gabapentin. We did discuss balance. If she notes increased issues with her balance in the future it would be reasonable to consider physical therapy for balance training. Her white matter changes on MRI can also contribute to some balance issues. We did discuss continued cardiovascular cerebrovascular risk factor modification with her PCP. We discussed baby aspirin. She could start one daily. She said she has taken it in the past and then went off of it. It is not clearly indicated, but could be considered. documented in this encounter Plan of Treatment Not on filedocumented as of this encounter Visit Diagnoses Diagnosis Paresthesia - Primary Disturbance of skin sensation documented in this encounter Care Teams County Attorney Relationship Specialty Start Date End Date Faye Way MD PCP - General 01/20/10 [address] [place] [address] documented as of this encounter
--- OUTSIDE RECORDS SUMMARY | 2021-09-11 02:02 | XMS_ITS | Encounter Summary ---
:1945 Author Organization [facility] [place] [address] Care Team Providers Name Role Phone Faye Way MD Primary Care Provider Encounter Details Date Type Department Care Team Description 08/10/2013 External Results [place] [facility] [place]ace Nichols MD [facility] [place] [address] NEUROLOGY DEPT. [phone] [place], [place] [address] (Wo rk) Social History Tobacco Use Types Packs/Day Years [...] on file documented as of this encounter Plan of Treatment Not on filedocumented as of this encounter Procedures Procedure Name Priority Date/Time Associated Diagnosis Comme nts EMG SCAN Routine 08/09/2013 documented in this encounter Results Scan Doc: EMG (08/09/2013) Narrative This result has an attachment that is no t available. Jace Nichols MD MEDIA MGR SCAN EXT ORDR/RSLT documented in this encounter Visit Diagnoses Not on filedocumented in this encounter Care Teams Information Systems Specialist Relationship Specialty Start Date End Date Faye Way MD PCP - General 01/20/10 [address] [place] [address] documented as of this encounter
--- OUTSIDE RECORDS SUMMARY | 2021-09-11 02:02 | XMS_ITS | Clinical Summary ---
:1945 Author Organization [place] [address] Care Team Providers Name Role Phone Faye Way MD Primary Care Provider Allergies Active Allergy Reactions Severity Noted Date Comments Gabapentin 08/09/2013 Hallucinations Per pt Medications Medication Sig Dispensed Refills Start Date End Date Status CYCLOSPORINE (RESTASIS Apply to eye 2 0 Active OPHT) times daily. Both eyes spironolactone Take 25 mg by 0 A ctive (ALDACTONE) 25 mg tablet mouth daily. Active Problems No known active problems Immunizations Name Administration Dates Next Due Influenza Vaccine, Whole 01/18/2007 Social History Tobacco Use Types Packs/Day Years [...] Assigned at Date Recorded Not on file Last Filed Vital Signs Vital Sign Reading [...] Mass Index 22.71 08/09/2013 9:47 AM EDT Plan of Treatment Health Maintenance Due Date Last Done Comments Covid-19 Vaccine (#1) 05/22/1950 Hepatitis C Screening 1964 Tdap adult 1965 Tetanus vaccine 1965 Colonoscopy 05/22/1991 Zoster vaccine (1 of 2) 1996 Advance Directive 2001 Bone Density Scan 05/22/2011 Pneumoccocal Vaccine: 65+ (1 - PCV) 05/22/2011 Influenza (Flu) vaccine (1 of 1 - Influenza standard 10/29/2021 01/18/2007 series) Care Teams Round Kiln Drawer Relationship Specialty Start Date End Date Faye Way MD PCP - General 01/20/10 [address] [place], [place] [address]
--- OUTSIDE RECORDS SUMMARY | 2021-09-11 02:03 | XMS_ITS | Encounter Summary ---
:1945 Author Organization [facility] Address [address] [place] [address] Care Team Providers Name Role Phone Unavailable Primary Care Provider Unavailable Encounter Details Date Type Department Care Team Description 06/20/2007 Results Only [facility] - Liat Miramontes od, LIAISON OFFICER [place] [id number] [facility] [facility] [address] [place] [phone] (Wo rk) Social History Tobacco Use Types Packs/Day Years Used Date Never Assessed Sex Assigned at Date Recorded Not on file documented as of this encounter Plan of Treatment Not on filedocumented as of this encounter Procedures Procedure Name Priority Date/Time Associated Comments Diagnosis HPV DETECTION, HIGH Routine 06/20/2007 11:58 Resu lts for this RISK TYPES EDT procedure are i n the results section. CYTOPATHOLOGY Routine 06/20/2007 0:00 Results for this EDT procedure are i n the results section. documented in this encounter Results HUMAN PAPILLOMA VIRUS DNA TEST (06/20/2007 11:58 EDT) Specimen Description Cervix, ThinPrep [facility]ial Result Negative for HPV [facility] types 16, 18, 31, 33, 35, 39, 45, 51, 52, 56, 58, 59, and 68. Report Status Final [facility] [id number] Specimen Performing Organization Address City/State/ZIP Code Phon e Number [facility] [address] [place] [address] SERVICES [facility] [address] [place] [address] CYTOPATHOLOGY (06/20/2007 0:00 EDT) Pathology Report: CYTOPATHOLOGY REPORT [facility] Reports generated via electronic interface contain franny ginal data; however they are lacking the format of the original re port. Caution should be taken when reading/interpreting unfo rmatted reports. Name: ? ANALIA MILNER ? Accession #: ? [id number] : ? 1945 (Age: 62) ??F ?Collect Date: ? 05/30 Location: ? [facility] ? Receive Date : ? 06/21/2007 Provider: ?LIAT ZAMORA LIAISON OFFICER Copy to: ? Specimen/Source: ? ThinPrep Pap Test, Cervix/Endocervix, processed on [employer] ThinPrep Imaging System, with manual evaluation Last Menstrual Period: ? 2001 Previous Gynecologic Pathology: ? ASC-US: 10/29, 04/29, 10/30 Other: ? HPVDX - HPV testing requested regardless of diag nosis on current ThinPrep Pap test. ? SPECIMEN ADEQUACY ? Satisfactory for Evaluation - transformation zone component present GENERAL CATEGORIZATION ? Negative for Intraepithelial Lesion or Malignan cy ? Document reviewed and electronically signed by: ? DAMIEN Neff(ASCP) ? Report Date: ??06/27/2007 14:32 End of Report Specimen Performing Organization Address City/State/ZIP Code Phon e Number [facility] [address] [place] [phone] SERVICES [facility] [address] [place] [address] documented in this encounter Visit Diagnoses Not on filedocumented in this encounter
--- OUTSIDE RECORDS SUMMARY | 2021-09-11 02:03 | XMS_ITS | Encounter Summary ---
:1945 Author Organization [facility] Address [address] [place] [address] Care Team Providers Name Role Phone Unavailable Primary Care Provider Unavailable Encounter Details Date Type Department Care Team Description 10/29/2010 Results Only [facility] Ronald Kaur, ENGINEERING SCIENTIST Laboratory Services - [address] [facility] [address] [place], [place] [address] [facility] [address] [place] [address] [phone] Social History Tobacco Use Types Packs/Day Years Used Date Never Assessed Sex Assigned at Date Recorded Not on file documented as of this encounter Plan of Treatment Not on filedocumented as of this encounter Procedures Procedure Name Priority Date/Time Associated Diagnosis Comme nts PAP TEST- RESULT Routine 10/29/2010 0:00 EDT Resu lts for this ONLY procedure are i n the results section. documented in this encounter Results PAP TEST- RESULT ONLY (10/29/2010 0:00 EDT) Pathology Report: CYTOPATHOLOGY REPORT ? [facility] ? LAB Reports generated via [employer] interface contain original data; ? however they are lacking the format of the original report. ? Caution should be taken when reading/interpreting unformatted reports. ? Name: ? MILNER, ANALIA ? Accession #: ? [id number] ? : ? 1945 (Age: 65) ??F ?Collect Date: ? 10/29/2010 ? Location: ? [facility] ? R eceive Date: ? 10/30/2010 ? Provider: JOSIAH NOAH ENGINEERING SCIENTIST ? Copy to: VANESSA ERISMAN MD ? Final Report ? SPECIMEN ADEQUACY ? Satisfactory for Eval uation ? - transformation zone compon ent present ? - scant squamous epithelial component ? GENERAL CATEGORIZATION ? Negative for Intraepi thelial Lesion or Malignancy ? Last Menstural Period: 2002 ? Previous Gynecologic Patholo gy: ASC-US: 10/29, 04/29, 10/30 ? Specimen/Source: ??Pap Test, Cervix/Endocervix, ThinPrep Imaging System with ? manual evaluation ? Document reviewed and electr onically signed by: ? Lynan Matthew, [place](ASCP) ? Report ??Date: 11/05/ 2010 14:43 ? HPV with Pap Test ? Date Ordered: ? 0 11/05/2010 ? Status: ?? Signed Out ?Date Complete: ? 11/10/2010 ? By: ??System Interface ? Date Reported: ? 11/10/2010 ? Interpretation ? RESULT: Negative for HPV typ es 16, 18, 31, 33, 35, 39, 45, 51, 52, ? 56, 58, 59, and 68. ? Comments ? Document reviewed and electr onically signed by: ? System Interface ? Report date: 11/10/ 11 ? By the signature above, the attending physician certifies that he/she has ? personally conducted a gross and/or microscopic examination of the described ? specimens and rendered or co nfirmed the above diagnosis. ? End of Report ? Specimen Performing Organization Address City/State/ZIP Code Phon e Number [facility] [address] [place] [address] SERVICES [facility] [address] [place] [address] documented in this encounter Visit Diagnoses Not on filedocumented in this encounter
--- OUTSIDE RECORDS SUMMARY | 2021-09-11 02:03 | XMS_ITS | Encounter Summary ---
:1945 Author Organization [facility] Address [address] [place] [address] Care Team Providers Name Role Phone Unavailable Primary Care Provider Unavailable Encounter Details Date Type Department Care Team Description 05/12/2004 Results Only [facility] - Doris Tabor od, Liat Leiva, STYLIST APPRENTICE [address] [place] [phone] (Wo rk) Social History Tobacco Use Types Packs/Day Years Used Date Never Assessed Sex Assigned at Date Recorded Not on file documented as of this encounter Plan of Treatment Not on filedocumented as of this encounter Procedures Procedure Name Priority Date/Time Associated Diagnosis Comme nts CYTOPATHOLOGY Routine 05/12/2004 0:00 EST Results for this procedure are i n the results section . documented in this encounter Results CYTOPATHOLOGY (05/12/2004 0:00 EST) Pathology Report: CYTOPATHOLOGY REPORT [facility] Reports generated via electronic interface contain franny ginal data; however they are lacking the format of the original re port. Caution should be taken when reading/interpreting unfo rmatted reports. Name: ? ANALIA MILNER ? Accession #: ? [id number] : ? 1945 (Age: 58) ??F ?Collect Date: ? 04/28 Location: ? [facility] ? Receive Date : ? 05/14/2004 Provider: ?LIAT ZAMORA STYLIST APPRENTICE Copy to: ? Specimen/Source: ?ThinPrep Pap Test, Cervix/ Endocervix Last Menstrual Period: ? 2001 Previous Gynecologic Pathology: ? ASC-US: 10/29, 05/05/01, 10/31/01 Other: ? Additional clinical information: 05/01/02 and 05/03/03 Neg . HPVA - HPV testing requested if ASC-US on the current ThinPrep Pap test. ? SPECIMEN ADEQUACY ? Satisfactory for Evaluation - transformation zone component present GENERAL CATEGORIZATION ? Negative for Intraepithelial Lesion or Malignan cy ? Document reviewed and electronically signed by: ? Carol Garcia [facility](ASCP) ? Report Date: ??05/18/2004 13:59 End of Report Specimen Performing Organization Address City/State/ZIP Code Phon e Number [facility] [address] [place] [address] SERVICES [facility] [address] [place] [address] documented in this encounter Visit Diagnoses Not on filedocumented in this encounter
--- OUTSIDE RECORDS SUMMARY | 2021-09-11 02:03 | XMS_ITS | Encounter Summary ---
:1945 Author Organization [facility] Address [address] [place] [address] Care Team Providers Name Role Phone Unavailable Primary Care Provider Unavailable Encounter Details Date Type Department Care Team Description 05/30/2006 Results Only [facility] - Doris Tabor od, Liat Leiva, MANGLE FEEDER [address] [place] [phone] (Wo rk) Social History Tobacco Use Types Packs/Day Years Used Date Never Assessed Sex Assigned at Date Recorded Not on file documented as of this encounter Plan of Treatment Not on filedocumented as of this encounter Procedures Procedure Name Priority Date/Time Associated Diagnosis Comme nts CYTOPATHOLOGY Routine 05/30/2006 0:00 EDT Results for this procedure are i n the results section . documented in this encounter Results CYTOPATHOLOGY (05/30/2006 0:00 EDT) Pathology Report: CYTOPATHOLOGY REPORT [facility] Reports generated via electronic interface contain franny ginal data; however they are lacking the format of the original re port. Caution should be taken when reading/interpreting unfo rmatted reports. Name: ? ANALIA MILNER ? Accession #: ? [id number] : ? 1945 (Age: 61) ??F ?Collect Date: ? 04/0 03/2006 Location: ? [facility] ? Receive Date : ? 05/31/2006 Provider: ?LIAT ZAMORA MANGLE FEEDER Copy to: ? Specimen/Source: ? ThinPrep Pap Test, Cervix/Endocervix, processed on [employer] ThinPrep Imaging System, with manual evaluation Last Menstrual Period: ? Previous Gynecologic Pathology: ? ASC-US: 10/29, 04/29, 10/30 Other: ? HPVA - HPV testing requested if ASC-US on the current ThinPrep Pap test. ? SPECIMEN ADEQUACY ? Satisfactory for Evaluation - transformation zone component present GENERAL CATEGORIZATION ? Negative for Intraepithelial Lesion or Malignan cy ? Document reviewed and electronically signed by: ? DAMIEN Stroud(ASCP) ? Report Date: ??06/02/2006 10:15 End of Report Specimen Performing Organization Address City/State/ZIP Code Phon e Number [facility] [address] [place] [address] SERVICES [facility] [address] [place] [address] documented in this encounter Visit Diagnoses Not on filedocumented in this encounter
--- OUTSIDE RECORDS SUMMARY | 2021-09-11 02:03 | XMS_ITS | Encounter Summary ---
:1945 Author Organization [facility] Address [address] [place] [address] Care Team Providers Name Role Phone Faye Bird MD Primary Care Provider Encounter Details Date Type Department Care Team Description 07/24/2013 Results Only [facility] Ronald Kaur, FAST FOOD SUPERVISOR Laboratory Services - [address] [place], [place] [address] [facility] [address] [place] [address] [phone] Social History Tobacco Use Types Packs/Day Years Used Date Never Assessed Sex Assigned at Date Recorded Not on file documented as of this encounter Plan of Treatment Not on filedocumented as of this encounter Procedures Procedure Name Priority Date/Time Associated Diagnosis Comme nts PAP TEST- RESULT Routine 07/24/2013 0:00 EDT Resu lts for this ONLY procedure are i n the results section. documented in this encounter Results PAP TEST- RESULT ONLY (07/24/2013 0:00 EDT) Pathology Report: CYTOPATHOLOGY REPORT [facility] Reports generated via electronic interface contain franny ginal data; however they are lacking the format of the original re port. Caution should be taken when reading/interpreting unfo rmatted reports. Name: ? ANALIA MILNER ? Accession #: ? [id number] : ? 1945 (Age: 68) ??F ?Collect Date: ? 06/29 Location: ? [facility] ? Receive Date : ? 07/25/2013 Provider: ?JOSIAH KAUR FAST FOOD SUPERVISOR Copy to: ?FAYE BIRD MD ? Specimen/Source: ? Pap Test, Cervix/Endocervix, ThinPrep Imaging System with manual evaluation Last Menstrual Period: ? 2001 ? SPECIMEN ADEQUACY ? Satisfactory for Evaluation - assessment of transformation zone component not appl icable ( e.g. atrophy, vaginal sample, hysterectomy) - obscuring contamination, possibly lubricant GENERAL CATEGORIZATION ? Negative for Intraepithelial Lesion or Malignan cy ? Document reviewed and electronically signed by: ? DAMIEN Garcia(ASCP) ? Report Date: ??07/31/2013 13:43 End of Report Specimen Performing Organization Address City/State/ZIP Code Phon e Number [facility] [address] [place] [address] SERVICES [facility] [address] [place] [address] documented in this encounter Visit Diagnoses Not on filedocumented in this encounter Care Teams Baker Head Relationship Specialty Start Date End Date Faye Bird MD PCP - General 12/11/[address] [place] [address] [address] [place], [place] [address] documented as of this encounter
--- OUTSIDE RECORDS SUMMARY | 2021-09-11 02:03 | XMS_ITS | Encounter Summary ---
:1945 Author Organization [facility] Address [address] [place] [address] Care Team Providers Name Role Phone Unavailable Primary Care Provider Unavailable Encounter Details Date Type Department Care Team Description 12/09/2010 Results Only [facility] Yuly Gill MD Laboratory Services - [address] [place] [address] 0 [place] [address] Social History Tobacco Use Types Packs/Day Years Used Date Never Assessed Sex Assigned at Date Recorded Not on file documented as of this encounter Plan of Treatment Not on filedocumented as of this encounter Procedures Procedure Name Priority Date/Time Associated Diagnosis Comme [facility] SURGICAL PATHOLOGY Routine 12/09/2010 0:00 EDT Re sults for this procedure are i n the results section. documented in this encounter Results SURGICAL PATHOLOGY (12/09/2010 0:00 EDT) Pathology Report: SURGICAL PATHOLOGY REPORT [facility] Reports generated via electronic interface contain franny ginal data; LAB however they are lacking the format of the original re port. Caution should be taken when reading/interpreting unfo rmatted reports. Name: ? ANALIA MILNER ? Accession #: ? [id number] ? : ? 1945 (Age: 65) ??F ? Collect Date: ? 12/09/2010 ? Location: ? [facility] ? Receive Date: ? 011 ? Provider: YULY GILL MD Copy to: VANESSA BIRD MD ? Final Pathologic Diagnosis: A. ?Fallopian tube fimbria, right, resect ion: 1. ?Paratubal cysts. B. ?Ovary and fallopian tube, left, salpi gray-oophorectomy: 1. ?Benign serous cystadenofibroma. 2. ? Fallopian tubes with paratubal cysts. Document reviewed and electronically signed by: LIBAN GARCIA MD Report ??Date: 12/11/2010 14:53 By the signature above, the attending physician certif ies that he/she has personally conducted a gross and/or microscopic examin ation of the described specimens and rendered or confirmed the above diagnosi s. Specimen(s) Received: A. ?Right fimbria B. ? L tube and ovary Clinical History: ? Left ovarian cyst on CT/US; L paratubal cyst Gross Description: ? Received in formalin labelled Analia Milner and right fimbria is a 2.1 x 1.0 x 0.6 cm portion of alfonso-purple fallopian tube fi mbriae that has an attached 2.0 x 1.3 x 1.0 cm portion of slightly indura lety, yellow adipose tissue. ??The fimbriae are u nremarkable and have a patent opening. ??Within the attached adipose tissue, there are numer ous cystic structures filled with alfonso, viscous fluid that range fro m 0.3 to 0.5 cm. ??The linings of these cysts are alfonso and smooth, without excresce nces, and the wall thicknesses are less than 0.1 cm. The specimen is entirely submitted as follows: BLOCK LEVY A1 ?Longitudinally bisected fimbria A2 ?Adipose tissue with indwelling cyst Received in formalin labelled Analia Milner nd left tube and ovary is a 4.0 x 4.0 x 2.5 cm alfonso-purpl e cystic structure with an adherent 2.0 cm in length by 0.5 cm in diameter portio n of fimbriated fallopian tube and with two portions of adherent alfonso-yellow, lobulated ovary that are 1.3 x 0.8 x 0.5 cm and 2.5 x 1.5 x 1.1 cm. ??The two port ions of ovary do not directly communicate and are 0.9 cm apart on the surface of t he cystic structure. ??The outer surface of the cyst is alfonso-purple and smooth, without excrescences. ??Open ing the cyst reveals alfonso-yellow serous fluid and a alfonso-purple, smooth to wrinkled inner lining, with minimal focal alfonso-white, firm, nodular excrescen linn on the inner lining where the smaller portion of ovary is adherent to the outer surface of the cyst. ??The wall thickness of the cyst is less than 0.1 cm. ??The cut surface of the fallopian tube is alfonso-purple , with a central pinpoint lumen. ??The cut surface of the smaller ovary is alfonso-yellow and homogeneous; while the cut surface of the larger portion of ovary is t an-de la rosa, with a 1.2 cm in diameter cystic structure with a alfonso-white periphery, which resembles a corpora albicans. ??Dehorner sections are submitted as follows: BLOCK LEVY B1 ?Fimbriated end of fallopian tube and two cross sections of fallopian tube adherent to outer ? surface of cystic structure ? B2 ?Sect ions with smaller portion of ovary adherent to outer surface of cystic structure and ? excrescences on inner lining of cystic structur e ? B3 ?Additional sections of wall of cystic structure B4 ?Larger portion of ovary (LRo Degroot)/nakian End of Report Specimen Performing Organization Address City/State/ZIP Code Phon e Number [facility] [address] [place] [address] SERVICES [facility] [address] [place] [address] documented in this encounter Visit Diagnoses Not on filedocumented in this encounter
--- OUTSIDE RECORDS SUMMARY | 2021-09-11 02:04 | XMS_ITS | Encounter Summary ---
:1945 Author Organization [facility] Address [address] [place] [address] Care Team Providers Name Role Phone Unavailable Primary Care Provider Unavailable Encounter Details Date Type Department Care Team Description 05/01/2002 Results Only [facility] - Doris Tabor od, Liat Leiva, HARDWARE INSTALLER [place] [address] [facility] [address] [place] [phone] (Wo rk) Social History Tobacco Use Types Packs/Day Years Used Date Never Assessed Sex Assigned at Date Recorded Not on file documented as of this encounter Plan of Treatment Not on filedocumented as of this encounter Procedures Procedure Name Priority Date/Time Associated Diagnosis Comme nts HPV DETECTION, HIGH Routine 05/01/2002 13:15 Resu lts for this RISK TYPES EST procedure are i n the results section. documented in this encounter Results HUMAN PAPILLOMA VIRUS DNA TEST (05/01/2002 13:15 EST) Specimen Description Cervix, ThinPrep [facility] vial Result Negative for HPV [facility] types 16, 18, 31, 33, 35, 39, 45, 51, 52, 56, 58, 59, and 68. Report Status Final [facility] [id number] Specimen Performing Organization Address City/State/ZIP Code Phon e Number [facility] [address] [place] [address] SERVICES [facility] [address] [place] [address] documented in this encounter Visit Diagnoses Not on filedocumented in this encounter
--- OUTSIDE RECORDS SUMMARY | 2021-09-11 02:04 | XMS_ITS | Encounter Summary ---
:[address] [facility] Address [address] [place] [address] Care Team Providers Name Role Phone Unavailable Primary Care Provider Unavailable Encounter Details Date Type Department Care Team Description 12/03/1999 Results Only [facility] - Doris Downing, Chr istopher, conversion DO [address] [place] [id number] [place] [address] (Wo rk) Social History Tobacco Use Types Packs/Day Years Used Date Never Assessed Sex Assigned at Date Recorded Not on file documented as of this encounter Plan of Treatment Not on filedocumented as of this encounter Procedures Procedure Name Priority Date/Time Associated Diagnosis Comme nts SURGICAL PATHOLOGY Routine 12/03/1999 0:00 EDT Re sults for this procedure are i n the results section. documented in this encounter Results SURGICAL PATHOLOGY (12/03/1999 0:00 EDT) Pathology Report: SURGICAL PATHOLOGY REPORT [facility] Reports generated via electronic interface contain franny ginal data; LAB however they are lacking the format of the original re port. Caution should be taken when reading/interpreting unfo rmatted reports. Name: ? ANALIA MILNER ? Accession #: ? [id number] ? : ? 1945 (Age: 54) ??F ? Collect Date: ? 12/03/1999 ? Location: ? [facility] ? Receive Date: ? 000 ? Provider: CASPER DOWNING DO Copy to: VANESSA HANSEN MD ? Final Pathologic Diagnosis: ? Skin of chest, right, excision: 1. ?? Scar, chronic inflammation, and foreign body jess nt cell reaction to keratin. ??See comment. 2. ?? Small fragments of polarizable material. ??See c omment. Comment: ? It is unclear whether the polarizable material represents hair or old suture. ??The other findings are consist ent with ruptured epithelial inclusion cyst. ??(Dr. Sarkar)/[facility] Document reviewed and electronically signed by: Chivo Guzman MD Report ??Date: 12/08/1999 17:34 By the signature above, the attending physician certif ies that he/she has personally conducted a gross and/or microscopic examin ation of the described specimens and rendered or confirmed the above diagnosi s. Specimen(s) Received: ? Cyst and overlying skin Clinical History: ? Infected cyst Rt breast Gross Description: ? Received in formalin labelled Milner and lesion Rt chest is a alfonso-pink elliptical excision of unori ented skin which measures 1.5 x 0.6 cm excised to a depth of 0.6 cm. ??The cutan eous surface is alfonso-pink and wrinkled. The unoriented specimen is inked entirely i n black and serially sectioned with the distal tips submitted reverse en face as (A1) and the remainder of the ellipse as (A2). (Dr. Sarkar[place] [place] End of Report Specimen Performing Organization Address City/State/ZIP Code Phon e Number [facility] [address] [place] [address] SERVICES [facility] [address] [place] [address] documented in this encounter Visit Diagnoses Not on filedocumented in this encounter
--- OUTSIDE RECORDS SUMMARY | 2021-09-11 02:04 | XMS_ITS | Encounter Summary ---
:1945 Author Organization [facility] Address [address] [place] [address] Care Team Providers Name Role Phone Unavailable Primary Care Provider Unavailable Encounter Details Date Type Department Care Team Description 05/01/2002 Hospital Encounter [facility] - Liat Kaur, [facility] [address] [place] [address] [place] [address] Other Unknown, Provider, [address] [place] [address] Social History Tobacco Use Types Packs/Day Years Used Date Never Assessed Sex Assigned at Date Recorded Not on file documented as of this encounter Discharge Disposition Disposition Code Departure Means Destination Auto Discharge documented in this encounter Plan of Treatment Not on filedocumented as of this encounter Procedures Procedure Name Priority Date/Time Associated Diagnosis Comme nts CYTOPATHOLOGY Routine 05/01/2002 0:00 EST Results for this procedure are i n the results section . documented in this encounter Results CYTOPATHOLOGY (05/01/2002 0:00 EST) Pathology Report: CYTOPATHOLOGY REPORT [facility] Reports generated via electronic interface contain franny ginal data; however they are lacking the format of the original re port. Caution should be taken when reading/interpreting unfo rmatted reports. Name: ? ANALIA MILNER ? Accession #: ? [id number] : ? 1945 (Age: 56) ??F ?Collect Date: ? 03/0 05/2002 Location: ? [facility] ? Receive Date : ? 05/03/2002 Provider: ?LIAT KAUR [employer] AGENT Copy to: ? Specimen/Source: ?ThinPrep Pap Test, Cervix/ Endocervix Last Menstrual Period: ? 04/19/01 Previous Gynecologic Pathology: ? ASC-US: 05/05/01, 10/31/01 Other: ? HPVDX - HPV testing requested regardless of diag nosis on current ThinPrep Pap test. ? SPECIMEN ADEQUACY ? Satisfactory for Evaluation - transformation zone component present GENERAL CATEGORIZATION ? Negative for Intraepithelial Lesion or Malignan cy ? Document reviewed and electronically signed by: ? DAMIEN Tubbs(ASCP) ? Report Date: ??05/07/2002 09:44 End of Report Specimen Performing Organization Address City/State/ZIP Code Phon e Number [facility] [address] [place] [address] SERVICES [facility] [address] [place] [address] documented in this encounter Visit Diagnoses Not on filedocumented in this encounter
--- OUTSIDE RECORDS SUMMARY | 2021-09-11 02:04 | XMS_ITS | Encounter Summary ---
:[address] [facility] Address [address] [place] [address] Care Team Providers Name Role Phone Unavailable Primary Care Provider Unavailable Encounter Details Date Type Department Care Team Description 05/03/2003 Results Only [facility] - Doris Tabor od, Liat Leiva, [employer] [address] [place] [phone] (Wo rk) Social History Tobacco Use Types Packs/Day Years Used Date Never Assessed Sex Assigned at Date Recorded Not on file documented as of this encounter Plan of Treatment Not on filedocumented as of this encounter Procedures Procedure Name Priority Date/Time Associated Diagnosis Comme nts CYTOPATHOLOGY Routine 05/03/2003 0:00 EST Results for this procedure are i n the results section . documented in this encounter Results CYTOPATHOLOGY (05/03/2003 0:00 EST) Pathology Report: CYTOPATHOLOGY REPORT [facility] Reports generated via electronic interface contain franny ginal data; however they are lacking the format of the original re port. Caution should be taken when reading/interpreting unfo rmatted reports. Name: ? ANALIA MILNER ? Accession #: ? [id number] : ? 1945 (Age: 57) ??F ?Collect Date: ? 0 06/2003 Location: ? [facility] ? Receive Date : ? 05/07/2003 Provider: ?LIAT ZAMORA [employer] MACHINE Copy to: ? Specimen/Source: ?ThinPrep Pap Test, Cervix/ Endocervix Last Menstrual Period: ? 04/19/01 Previous Gynecologic Pathology: ? ASC-US: 11/01/00, 05/05/01, 10/31/01 Other: ? Additional clinical information: 05/01/02 pap and HPV ne g. ? SPECIMEN ADEQUACY ? Satisfactory for Evaluation - transformation zone component present GENERAL CATEGORIZATION ? Negative for Intraepithelial Lesion or Malignan cy ? Document reviewed and electronically signed by: ? NASIM Tamayo(ASCP) ? Report Date: ??05/10/2003 08:52 End of Report Specimen Performing Organization Address City/State/ZIP Code Phon e Number [facility] [address] [place] [address] SERVICES [facility] [address] [place] [address] documented in this encounter Visit Diagnoses Not on filedocumented in this encounter
--- OUTSIDE RECORDS SUMMARY | 2021-09-11 02:04 | XMS_ITS | Encounter Summary ---
:1945 Author Organization [facility] Address [address] [place] [address] Care Team Providers Name Role Phone Unavailable Primary Care Provider Unavailable Encounter Details Date Type Department Care Team Description 11/01/2000 Results Only [facility] - Torey Riley MD conversion [address] [place] [id number] Social History Tobacco Use Types Packs/Day Years Used Date Never Assessed Sex Assigned at Date Recorded Not on file documented as of this encounter Plan of Treatment Not on filedocumented as of this encounter Procedures Procedure Name Priority Date/Time Associated Diagnosis Comme nts CYTOPATHOLOGY Routine 11/01/2000 0:00 EDT Results for this procedure are i n the results section . documented in this encounter Results CYTOPATHOLOGY (11/01/2000 0:00 EDT) Pathology Report: CYTOPATHOLOGY REPORT [facility] Reports generated via electronic interface contain franny ginal data; however they are lacking the format of the original re port. Caution should be taken when reading/interpreting unfo rmatted reports. Name: ? ANALIA MILNER ? Accession #: ? [id number] : ? 1945 (Age: 55) ??F ?Collect Date: ? 0 05/2000 Location: ? [facility] ? Receive Date : ? 11/03/2000 Provider: ?TOREY LARSON MD Copy to: ? Specimen/Source: ?ThinPrep Pap Test, Cervix/ Endocervix Last Menstrual Period: ? Menstrual/ Status: ? Post Menopausal Hormonal/Contraceptive Status: ? Yes: Estradial prometrium ? SPECIMEN ADEQUACY ? Satisfactory for evaluation. GENERAL CATEGORIZATION ? Epithelial Cell Abnormality DESCRIPTIVE DIAGNOSIS ? Atypical squamous cells of undetermined signifi cance (ASCUS), favor reactive process. RECOMMENDATION ? Recommend repeat Pap test in 3-6 months or further follow up, as clinically indicated. ? Document reviewed and electronically signed by: ? Krystle Leigh MD ? Report Date: ??11/14/2000 14:29 End of Report Specimen Performing Organization Address City/State/ZIP Code Phon e Number [facility] [address] [place] [address] SERVICES [facility] [address] [place] [address] documented in this encounter Visit Diagnoses Not on filedocumented in this encounter
--- OUTSIDE RECORDS SUMMARY | 2021-09-11 02:04 | XMS_ITS | Encounter Summary ---
:1945 Author Organization [facility] Address [address] [place] [address] Care Team Providers Name Role Phone Unavailable Primary Care Provider Unavailable Encounter Details Date Type Department Care Team Description 05/05/2001 Results Only [facility] - Torey Riley MD conversion [address] [place] [phone] Social History Tobacco Use Types Packs/Day Years Used Date Never Assessed Sex Assigned at Date Recorded Not on file documented as of this encounter Plan of Treatment Not on filedocumented as of this encounter Procedures Procedure Name Priority Date/Time Associated Diagnosis Comme nts CYTOPATHOLOGY Routine 05/05/2001 0:00 EST Results for this procedure are i n the results section . documented in this encounter Results CYTOPATHOLOGY (05/05/2001 0:00 EST) Pathology Report: CYTOPATHOLOGY REPORT [facility] Reports generated via electronic interface contain franny ginal data; however they are lacking the format of the original re port. Caution should be taken when reading/interpreting unfo rmatted reports. Name: ? ANALIA MILNER ? Accession #: ? [id number] : ? 1945 (Age: 55) ??F ?Collect Date: ? 09/2001 Location: ? [facility] ? Receive Date : ? 05/08/2001 Provider: ?TOREY LARSON MD Copy to: ? Specimen/Source: ?ThinPrep Pap Test, Cervix/ Endocervix Last Menstrual Period: ? 04/19/01 Hormonal/Contraceptive Status: ? Yes: Estradial and Prometrium ? SPECIMEN ADEQUACY ? Satisfactory for Evaluation - transformation zone component present GENERAL CATEGORIZATION ? Epithelial Cell Abnormality INTERPRETATION ? Squamous Cell Abnormality - Atypical squamous c ells, undetermined significance. EDUCATIONAL NOTES/RECOMMENDATIONS ? Recommend clinical correlation and further eval uation, as clinically indicated. ? Document reviewed and electronically signed by: ? Renetta Moreno MD PhD ? Report Date: ??05/12/2001 15:29 End of Report Specimen Performing Organization Address City/State/ZIP Code Phon e Number [facility] [address] [place] [address] SERVICES [facility] [address] [place] [address] documented in this encounter Visit Diagnoses Not on filedocumented in this encounter
== END 2021-09-11 02:01 | disposition home or self-care (01) ==
LOC: LBO 02:01
PROVIDERS: PCP Nurse Practitioner Family; Visit Provider Family Medicine

== ENCOUNTER 2021-09-15 19:16 | Outpatient (REF) | payer MEDICARE, OTHER, SELFPAY | END 2021-09-15 19:17 | disposition home or self-care (01) | LOC: NCHCN 19:16 | PROVIDERS: PCP Nurse Practitioner Family; Visit Provider Family Medicine ==

== ENCOUNTER 2021-10-07 14:20 | Outpatient (CLI) | payer MEDICARE, OTHER, SELFPAY ==
--- NOTE | 2021-10-07 14:00 | DI.RAD_ITS ---
Exam(s) XR HUMERUS LT EXAM: XR HUMERUS LT CLINICAL HISTORY: left humerus fx f/u TECHNIQUE: COMPARISON: CR,XR XR HUMERUS LT from 08/30/2021 CR XR SHOULDER LT COMPLETE 2+V from 09/09/2021 FINDINGS: Three views were obtained and show previous described proximal humeral fracture, no gross interval ch alivia in alignment of the fracture fragments allowing for differences in projection in comparison with examination of September 09. IMPRESSION: RADIATION DOSE DELIVERED: Total DLP
== END 2021-10-07 14:21 | disposition home or self-care (01) ==
LOC: DIORS 14:21
PROVIDERS: PCP Nurse Practitioner Family; Referring Provider Nurse Practitioner Family; Visit Provider Student in an Organized Health Care Education/Training Program
DX: S42.202A Unspecified fracture of upper end of left humerus, initial encounter for closed fracture (principal); X58.XXXA Exposure to other specified factors, initial encounter
CPT/HCPCS: 99213; 73060

== ENCOUNTER 2021-11-18 13:53 | Outpatient (CLI) | payer MEDICARE, OTHER, SELFPAY ==
--- NOTE | 2021-11-18 13:15 | DI.RAD_ITS ---
Exam(s) XR SHOULDER LT COMPLETE 2+V EXAM: XR SHOULDER LT COMPLETE 2+V CLINICAL HISTORY: humerus fx f/u. TECHNIQUE: 2D digital imaging was performed. COMPARISON: CR XR SHOULDER LT COMPLETE 2+V from 09/09/2021 FINDINGS: Two views: Again noted is a previously described humeral head-neck fracture. Mild healing but the fracture line s are still evident. No significant further displacement and there is no dislocation of the glenohum eral joint. IMPRESSION: DATA REPOSITORY: RADIATION DOSE DELIVERED:
== END 2021-11-18 13:54 | disposition home or self-care (01) ==
LOC: DIORS 13:54
PROVIDERS: PCP Nurse Practitioner Family; Referring Provider Nurse Practitioner Family; Visit Provider Student in an Organized Health Care Education/Training Program
DX: S42.202A Unspecified fracture of upper end of left humerus, initial encounter for closed fracture (principal); X58.XXXA Exposure to other specified factors, initial encounter
CPT/HCPCS: 99213; 73030

== ENCOUNTER 2022-02-10 13:43 | Outpatient (CLI) | payer MEDICARE, OTHER, SELFPAY ==
--- NOTE | 2022-02-10 13:00 | DI.RAD_ITS ---
Exam(s) XR SHOULDER LT COMPLETE 2+V EXAM: XR SHOULDER LT COMPLETE 2+V CLINICAL HISTORY: left humerus fx f/u. TECHNIQUE: 2D digital imaging was performed of the left shoulder. Three images were obtained. AP Y -view and axillary views were obtained. COMPARISON: CR XR SHOULDER LT COMPLETE 2+V from 11/18/2021 FINDINGS: BONES: There has been no change in alignment of the proximal left humeral fracture. The fracture has shown significant healing since the prior examination. No new fractures identified. No bony destru ctive lesion is seen. JOINTS: No dislocation present. SOFT TISSUE: Normal. IMPRESSION: Healing proximal humeral fracture. DATA REPOSITORY: RADIATION DOSE DELIVERED:
== END 2022-02-10 13:44 | disposition home or self-care (01) ==
LOC: DIORS 13:44
PROVIDERS: PCP Nurse Practitioner Family; Referring Provider Nurse Practitioner Family; Visit Provider Student in an Organized Health Care Education/Training Program
DX: S42.202D Unspecified fracture of upper end of left humerus, subsequent encounter for fracture with routine healing (principal); X58.XXXD Exposure to other specified factors, subsequent encounter
CPT/HCPCS: 99213; 73030

== ENCOUNTER 2022-04-23 00:57 | Outpatient (CLI) | payer MEDICARE, SELFPAY ==
--- NOTE | 2022-04-23 08:15 | DI.DEXA_ITS ---
Exam(s) XR DEXA BONE DENSITY W/WO CLEVE EXAM: XR DEXA BONE DENSITY W/WO CLEVE CLINICAL HISTORY: F/U osteopenia in 2015,SCREENING FOR OSTEOPOROSIS IN POSTMENOPAUSAL,Z78.0 TECHNIQUE: Fetch It Horizon C densitometer analysis of left hip, lumbar spine and left forearm. COMPARISON: Two thousand five and 2014 FINDINGS: Lateral view of the thoracic and lumbar spine shows no evidence of compression fractures. Bone mineral density measurements of the lumbar spine correspond to a total T-score of -2.3, in the osteopenic range. Not significantly changed from prior. 4.6 percent decrease when compared with 17 07. Bone mineral density measurements of the left hip correspond to a total T-score of -1.8. The femora l neck T-score is 2.4, in the osteopenic range. This represents an 11.6 percent decrease from 2014 and 20.4 percent decrease from 2004.. The left forearm bone mineral density measurements correspond to a T-score of the distal 3rd of -1.5 , in the osteopenic range. This represents a 9.9 percent decrease compared with 2014. Forearm was n ot analyzed in 2004.. IMPRESSION: Osteopenia of the lumbar spine, left hip and left forearm. Decrease in bone density compared with pr ior exams.
--- NOTE | 2022-04-23 08:15 | DI.MAMMO_ITS ---
Exam(s) MAMMO SCREENING EXAM: MAMMO SCREENING CLINICAL HISTORY: screening,Z12.39 TECHNIQUE: Mammograms were interpreted according to the usual protocol including computer analysis w Cliqset CAD system, tomosynthesis and C-view imaging. COMPARISON: 2012 through 2020 FINDINGS: The breasts are composed of scattered fibroglandular densities, Breast Density category B. No suspicious masses or suspicious microcalcifications are seen. No skin thickening or abnormal axillary lymph nodes are seen. There has been no significant change from prior exams. IMPRESSION: BI-RADS Category 1, Negative mammogram Yearly screening mammography is recommended. Breast Density - Category B, scattered fibroglandular densities. A negative radiographic report should not delay biopsy if a dominant or clinically suspicious mass is present. Up to ten percent of cancers are not identified on mammography. A negative report may reinforce clinical impression. Adenosis and dense breasts may obscure an underlying neoplasm. False positive reports average 6 to 10%. Patient will receive a letter notifying them of these results.
== END 2022-04-23 01:17 ==
LOC: DI 00:58
PROVIDERS: PCP Nurse Practitioner Family; Visit Provider Nurse Practitioner Family
DX: Z12.31 Encounter for screening mammogram for malignant neoplasm of breast (principal); M85.89 Other specified disorders of bone density and structure, multiple sites; Z78.0 Asymptomatic menopausal state; Z13.820 Encounter for screening for osteoporosis
CPT/HCPCS: 77063; 77067; 77080

== ENCOUNTER 2022-04-23 01:50 | Outpatient (CLI) | payer MEDICARE, SELFPAY ==
[2022-04-23 11:59] LABS: Hemoglobin A1C 5.3 % (<5.7)
[2022-04-23 12:46] LABS: Anion Gap 7.8 mmol/L (3-11); BUN 14 mg/dL (7-18); CO2 31.2 mmol/L (21.0-32.0); CREATININE 0.8 mg/dL (0.55-1.02); Calcium 9.6 mg/dL (8.5-10.1); Calculated LDL 159 mg/dL (<100); Chloride 99 mmol/L (98-107); Cholesterol 298 mg/dL (<200); Estimated GFR 76.79 (mL/min/1.73m2); Glucose 96 mg/dL (74-106); HDL Cholesterol 124 mg/dL (40-60); Potassium 3.9 mmol/L (3.5-5.1); Sodium 138 mmol/L (136-145); Triglyceride 76 mg/dL (<150)
== END 2022-04-23 01:51 | disposition home or self-care (01) ==
LOC: LBO 01:51
PROVIDERS: PCP Nurse Practitioner Family; Visit Provider Nurse Practitioner Family
DX: E78.5 Hyperlipidemia, unspecified (principal); I10 Essential (primary) hypertension; R73.01 Impaired fasting glucose
CPT/HCPCS: 36415; 80048; 80061; 83036

== ENCOUNTER 2022-11-23 01:44 | Outpatient (CLI) | payer MEDICARE, SELFPAY ==
[2022-11-23 12:34] LABS: Calculated LDL 95 mg/dL (<100); Cholesterol 226 mg/dL (<200); HDL Cholesterol 117 mg/dL (40-60); Triglyceride 73 mg/dL (<150)
== END 2022-11-23 01:45 | disposition home or self-care (01) ==
LOC: LOS 01:44
PROVIDERS: PCP Nurse Practitioner Family; Visit Provider Nurse Practitioner Family
DX: E78.5 Hyperlipidemia, unspecified (principal)
CPT/HCPCS: 36415; 80061

== ENCOUNTER → 2023-05-13 01:19 | Outpatient (CLI) | payer MEDICARE, SELFPAY ==
--- NOTE | 2023-05-13 06:45 | DI.US_ITS ---
APPROVED REPORT EXAM: Comprehensive 2D, Doppler, and color-flow Echocardiogram Patient Location: Out-Patient Scientific Technical Writer: Renu Yin RDCS (AE) Indications: Systolic murmur Other Information Study Quality: Adequate Conclusion Normal left ventricular wall thickness and chamber size.. Wall motion normal. Diastolic function is normal for age. EF is 60% Normal right ventricular size and function Both atria are normal in size Trileaflet aortic valve with trace regurgitation Normal mitral valve with mild/moderate regurgitation Estimated right ventricular systolic pressure is 27 mmHg Ascending aorta measures 3.54 cm Wall motion Left Ventricle The left ventricle is normal size. The left ventricular systolic function is normal. The left ventric ular ejection fraction is within the normal range. There is normal left ventricular wall thickness. T here is normal LV segmental wall motion. There is no ventricular septal defect visualized. LVEF is 60 %. Right Ventricle The right ventricle is normal size. The right ventricular systolic function is normal. Atria The left atrium size is normal. The right atrium size is normal. The interatrial septum is intact wit h no evidence for an atrial septal defect. Aortic Valve The aortic valve is normal in structure. Aortic valve is trileaflet. There is no aortic valvular sten osis. Trace aortic regurgitation. Mitral Valve The mitral valve is normal in structure. No evidence of mitral valve stenosis. Mild to moderate mitr al regurgitation. Tricuspid Valve The tricuspid valve is normal in structure. There is no tricuspid valve stenosis. Trace tricuspid reg urgitation. The RVSP is 27.4 mmHg. Pulmonic Valve The pulmonary valve is normal in structure. There is no pulmonic valvular stenosis. Trace to mild pul luz marina regurgitation. Great Vessels Aortic root is mildly dilated. The ascending aorta is mildly dilated. Aortic arch is normal in calib er. IVC is normal in size and collapses >50% with inspiration. Pericardium There is no pericardial effusion. 2D Dimensions IVSD d PLAX 0.88 cm F: 0.6-1.0 Ao Root d 3.52 cm F: 2.7 - 3.3 LVPW d PLAX 0.90 cm F: 0.6 - 1.0 Ao Asc Diam d 3.54 cm F: 2.3 - 3.1 LVID d PLAX 4.90 cm F: 3.8 - 5.2 LVDs 3.43 cm F: 2.2 - 3.5 LV EF Teichholz 57.2 % FS 30.10 % LV EDV (Teich) 113.0 mL LV ESV (Teich) 48.4 mL M-Mode TAPSE 2.59 cm (M/F) >1.7 Auto EF LV EDV A4C 120.0 mL LV EDV A2C 157.2 mL LV EDV BP 141.1 mL LV ESV A4C 56.8 mL LV ESV A2C 74.0 mL LV ESV BP 66.7 mL LVEF(%) A4C 52.7 % LVEF(%) A2C 52.9 % LVEF(%) BP 52.7 % LV SV A4C 63.2 ml LV SV A2C 83.2 ml LV SV BP 74.4 ml LV CO A4C 2.8 L/min LV CO A2C 3.7 L/min LV CO BP 3.2 L/min HR A4C 44.01 BPM HR A2C 44.01 BPM LV EDV Index (BP) LA Volume LA Length A4C 5.0 cm LA Length A2C 5.0 cm LA Area A4C s 18.59 cm2 LA Area A2C s 18.63 cm2 LA Vol A4C A-L 58.53 mL LA Vol A2C A-L 58.44 mL LA Vol Biplane A-L 58.7 mL LA Vol/BSA A4C A-L LA Vol/BSA A2C A-L LA Vol/BSA BP A-L 35.1 mL/m2 LA Vol A4C MOD 54.5 mL LA Vol A2C MOD 54.6 mL LA Vol BP MOD 54.6 mL RA Volume RA Area A4C 15.7 cm2 RA ESV A4C (A-L) 45.6mL RA Vol/BSA A4C A-L RA Length A4C 4.6 cm RA ESV A4C (MOD) 43.2mL LV Diastology MV E' medial 0.077 (>0.07 m/s) MV E Vmax 0.87 (0.4-1.3 m/s) MV E/E' MED 11.40 (<14) MV A Vmax 0.55 (0.4-1.3 m/s) MV E' lateral 0.087 (>0.1 m/s) E/A Ratio 1.6 MV E/E' LAT 10.00 (<14) MV E' Average 0.082 m/s MV E/E'(average) 10.65 Aortic Valve AoV Vmax 1.17 m/s LVOT Vmax 0.97 m/s AoV Peak Grad 5.5 mmHg LVOT Peak Grad 3.8 mmHg AoV Area (Vmax) 2.22 cm2 LVOT VTI 0.240 m AoV VTI 0.305 m LVOT Mean Grad 1.9 mmHg AoV Mean Silas. 0.81 m/s LVOT SV 64.36 mL AoV Mean Grad 3.0 mmHg LVOT Diam s 1.80 cm AoV Area (VTI) 2.11 cm2 Velocity Ratio 0.83 Mitral Valve MV DT 175 (160-240 msec) MR Vmax 5.35 m/s MV Vmax TIPS 0.81 m/s MR VTI 2.475 m MV Mean Grad 0.8 (<2mmHg) MR Peak Grad 114.7 mmHg MV VTI 0.361 m MR Mean Grad 87.1 mmHg Pulmonary Valve PV Vmax 0.85 (0.5-1.5 m/s) RVOT Vmax 0.51 m/s PV Peak Grad 2.9 mmHg RVOT Peak Gr. 1.0 mmHg PV Mean Silas 0.52 m/s RVOT VTI 0.156 m PV Mean Grad 1.3 mmHg RVOT Mean Gr. 0.6 mmHg Tricuspid Valve RA Pressure 3.00 mmHg TR Vmax 2.47 m/s TV S' 0.14 m/s TR Peak Grad 24.3 mmHg RVSP (TR) 27.4 mmHg
== END ==
PROVIDERS: PCP Nurse Practitioner Family; Visit Provider Nurse Practitioner Family
DX: R01.1 Cardiac murmur, unspecified (principal)
CPT/HCPCS: 93306

== ENCOUNTER 2023-05-13 02:34 | Outpatient (CLI) | payer MEDICARE, SELFPAY ==
[2023-05-13 10:44] LABS: Anion Gap 8.9 mmol/L (3-11); BUN 15 mg/dL (7-18); CO2 30.1 mmol/L (21.0-32.0); CREATININE 0.8 mg/dL (0.55-1.02); Calcium 9.7 mg/dL (8.5-10.1); Chloride 104 mmol/L (98-107); Estimated GFR 76.31 (mL/min/1.73m2); Glucose 87 mg/dL (74-106); Potassium 3.9 mmol/L (3.5-5.1); Sodium 143 mmol/L (136-145)
[2023-05-13 19:00] LABS: Hepatitis C Ab w Rflx HCV PCR Negative (Negative)
== END 2023-05-13 02:35 | disposition home or self-care (01) ==
LOC: LBO 02:34
PROVIDERS: PCP Nurse Practitioner Family; Visit Provider Nurse Practitioner Family
DX: Z00.00 Encounter for general adult medical examination without abnormal findings (principal)
CPT/HCPCS: 36415; 80048; 86803

== ENCOUNTER 2024-03-23 11:56 | Inpatient (IN) | payer MEDICARE, SELFPAY ==
[2024-03-23] VITALS (74 sets, daily range): BP systolic 104–247; BP diastolic 59–111; PULSE 45–94; RESP 9–25; TEMP 37; O2SAT 94–100
--- NOTE | 2024-03-23 11:45 | RT.EKG_ITS ---
APPROVED REPORT Exam: Resting ECG Reason for Exam: weakness Patient Location: E HR:59 bpm ECG Measurements Heart Rate 59 AXIS MA 155 P 56 QRSd 106 QRS 9 QT 446 T 27 QTc 438 Conclusion Sinus bradycardia...rate< 60 Atrial premature complex...SV complex w/ short R-R interval Probable left atrial enlargement...P >50mS, <-0.10mV V1 Left ventricular hypertrophy...multiple LVH criteria
--- NOTE | 2024-03-23 12:34 | DI.CT_ITS ---
Exam(s) CT BRAIN NECK CTA EXAM: CT BRAIN NECK CTA CLINICAL HISTORY: headache, dizziness, elev BP. TECHNIQUE: Imaging Protocol: Axial CT angiography was performed with multi-slice acquisition and mu lti-planar and/or 3D reconstructions. CONTRAST MATERIAL: Intravenous: Omnipaque 350 Contrast volume:structured data in ml COMPARISON: No exams were available for comparison FINDINGS: CTA Neck W: Aortic arch anatomy: The aortic arch anatomy is conventional and there is no significant stenosis at the origin of the great vessels off of the aortic arch. No intimal flap evident. Anterior circulation: Both common carotid arteries ascend with normal luminal diameters. At the level the carotid bulbs and proximal internal carotid arteries there is minimal plaque without hemodynamically significant stenosis evident. No evidence of dissection. The internal carotid arteries in the upper neck and skull base appear unr emarkable. Posterior circulation: Both vertebral arteries originate in conventional fashion off of the subclavian arteries and there is no obvious stenosis at the origin of the vertebral arteries. Both vertebral arteries exhibit normal luminal diameters within the foramen transversarium. Left leena tebral artery is dominant. No evidence of intraluminal thrombosis nor significant stenosis nor dissection of the vertebral arter ies. Both vertebral arteries contribute to the formation of the basilar artery at the skull base. CTA Brain W: Anterior circulation: Both internal carotid arteries are patent in the skull base-carotid canals as well as within the cave rnous sinuses. The supraclinoid aspects of the ICAs are patent. Both A1 segments are patent as are the anterior cer ebral arteries and there is no evidence of aneurysm at the level of the anterior communicating artery . Both middle cerebral arteries are patent with no evidence of significant stenosis nor intraluminal th rombus. There also no aneurysms of these vessels. Posterior circulation: The basilar artery ascends in the midline. Distally it gives off patent bilateral superior cerebella r arteries. Above this level the basilar artery terminates as patent left posterior cerebral. Right posterior ce rebral artery is predominantly supplied by posterior communicating artery on the right side of the ci uqqs-pb-Ycxmfv. There are posterior communicating arteries on both sides the orodbv-id-Ytcxha. There is no evidence of aneurysm at the tip of the basilar artery nor elsewhere in the vtqbro-gw-Oyja is. CT BRAIN: There is no evidence of intracranial hemorrhage, mass effect, or shift of midline structures. There are no extra-axial fluid collections. Ventricles are not enlarged or shifted. There are no ring enh ancing lesions in the brain and no abnormal meningeal enhancement. IMPRESSION: 1. Patent carotid arteries in the neck. No hemodynamically significant stenosis. 2. Patent vertebral arteries in the neck.. No stenosis, thrombosis, nor vertebral artery dissection 3. Patent intracranial arteries. 4. No acute intracranial findings. 5. If clinically indicated follow-up MRI can be performed. Report called by myself to ER physician 03/23/2024 at 1:46 p.m. RADIATION DOSE DELIVERED: 2,087.47mGy.cm Total DLP DATA REPOSITORY: All CT scans at this facility are submitted to the National Radiology Data Registry (NRDR) Dose Index Registry (DIR) with the [employer] (ACR). RADIATION OPTIMIZATION: All CT scans at this facility use at least one of these dose optimization te chniques: automated exposure control; mA and/or kV adjustment per patient size (includes targeted exa ms where dose is matched to clinical indication); or iterative reconstruction.
--- NOTE | 2024-03-23 12:37 | ED.GENADUL_ITS ---
Discharge Plan Disposition Patient Disposition: Admit to [facility] Condition: Serious Discharge Details Chief Complaint: Dizzy/Sync Clinical Impression: Hypertensive emergency, Pre-syncope Primary Care Provider: Vero Sanchez ED Provider: Tereso Graham Home Meds and New Rx's Prescriptions: No Action acetaminophen 500 mg capsule 500 mg PO QID PRN Fiber Laxative(methylcellulos) 500 mg tablet 500 mg PO DAILY rosuvastatin 5 mg tablet 5 mg PO DAILY Qty: 90 3RF cholecalciferol (vitamin D3) 1,000 UNIT capsule 1,000 unit PO DAILY Qty: 100 ibuprofen [Advil] 200 MG tablet 200 - 600 mg PO TID PRN triamcinolone acetonide 0.1 % cream 1 applic topical DAILY PRN (Reason: pruritus) Qty: 80 0RF lisinopril 10 mg tablet 10 mg PO DAILY Qty: 90 3RF HPI General Mode of arrival: ambulatory . Date/Time Provider Initiated Documentation: 03/23/24 12:14 . Limitations to Documentation: no limitations . Information obtained by: patient . HPI Narrative: 78-year-old female with history of hypertension, hyperlipidemia, mitral valve regurgitation, here with chief complaint of dizziness. Patient notes she was feeling well this morning. She was performing some nonexertional stretching exercises on the ground and went to stand up and felt dizzy like she was going to pass out. She sat down and symptoms persisted. She developed associated headache and nausea. She continues to have frontal headache which is moderate and associated nausea at this time. She had difficulty walking and here and had to be supported by her . She notes over the past few days she has felt intermittently unsteady on her feet. She has no associated chest pain or shortness of breath. No focal numbness or weakness. No visual changes. Related Data Home Medications ?Medication ?Instructions ?Recorded ?Confirmed cholecalciferol (vitamin D3) 25 1,000 unit PO DAILY #100 tab-caps 04/13/14 03/23/24 mcg (1,000 unit) capsule ibuprofen 200 mg tablet (Advil) 200 - 600 mg PO TID PRN 12/03/14 03/23/24 acetaminophen 500 mg capsule 500 mg PO QID PRN 06/12/18 03/23/24 methylcellulose (laxative) 500 mg 500 mg PO DAILY 08/02/19 03/23/24 tablet (Fiber Laxative (methylcellulose)) rosuvastatin 5 mg tablet 5 mg PO DAILY #90 tabs 04/20/23 03/23/24 triamcinolone acetonide 0.1 % 1 applic topical DAILY PRN 04/22/23 03/23/24 topical cream pruritus #80 grams lisinopril 10 mg tablet 10 mg PO DAILY #90 tabs 08/16/23 03/23/24 Previous Rx's ?Medication ?Instructions ?Recorded rosuvastatin 5 mg tablet 5 mg PO DAILY #90 tabs 04/20/23 triamcinolone acetonide 0.1 % 1 applic topical DAILY PRN 04/22/23 topical cream pruritus #80 grams lisinopril 10 mg tablet 10 mg PO DAILY #90 tabs 08/16/23 Allergies Allergy/AdvReac Type Severity Reaction Status Date / Time shrimp Allergy Mild Hives Verified 03/23/24 12:15 gabapentin AdvReac Severe HALLUCINATI Verified 03/23/24 12:15 ONS BALSAM TREES AdvReac Intermediate ITCHY EYES Uncoded 03/23/24 12:15 SEASONAL ALLERGIES AdvReac Intermediate ITCHY AND Uncoded 03/23/24 12:15 RUNNY EYES General Stated Complaint: Dizzy/Sync NOELLE: 3 Review of Systems All systems reviewed & are unremarkable except as noted in HPI and below Constitutional Constitutional: Denies fever(s) Cardiovascular Cardiovascular: Reports as per HPI Exam Const General: cooperative and no acute distress HENMT Head: normocephalic and atraumatic Mouth: moist mucous membranes Eyes Conjunctivae: normal conjunctivae Sclera: normal sclerae EOM: EOM intact bilaterally Neck Neck: trachea midline and supple Resp Auscultation: clear to auscultation bilaterally, no rales, no rhonchi and no wheezes Cardio Rate: regular rate and not tachycardic Rhythm: regular rhythm GI Palpation: soft, not firm, no guarding, no masses, not rigid and nontender Skin General skin exam: no rashes or lesions noted Neuro General: patient alert, patient awake, patient oriented x3 and tone normal Cranial Nerves: CN's II-XI intact bilaterally Cognition: normal cognition Speech: speech normal Motor: strength 5/5 throughout Sensory Exam: no sensory deficits noted Coordination: [id number] test normal Other: Some difficulty with rapid alternating movements Extrem General: no edema Psych Appearance: grossly normal Mental Status: mental status grossly normal Speech and Movement: speech and movement normal Course Vital Signs Vital signs: Vital Signs Pulse 53 L 03/23/24 12:04 Respiratory Rate 15 03/23/24 12:04 Blood Pressure 239/86 H 03/23/24 12:04 Pulse Oximetry 100 03/23/24 12:04 Pulse 53 L 03/23/24 12:04 Respiratory Rate 17 03/23/24 12:12 Respiratory Effort Normal, Non-Labored 03/23/24 12:12 Respiratory Pattern Normal 03/23/24 12:12 Blood Pressure 239/86 H 03/23/24 12:04 Blood Pressure Position Supine 03/23/24 12:04 Pulse Oximetry 100 03/23/24 12:04 Oxygen Delivery Method Room Air 03/23/24 12:04 Oxygen Flow Rate 0 03/23/24 12:04 Pain Level 4 03/23/24 12:04 Medical Decision Making 1239??78-year-old female with history of hypertension, hyperlipidemia, mitral valve regurgitation, here with sudden onset of presyncope and dizziness that started 2 to 3 hours ago. Patient is severely hypertensive. She does have a frontal headache. Neurologically intact other than some difficulty with rapid alternating movements. Patient notes typically her blood pressure is 140/70. She has not been monitoring her blood pressure recently. She has been taking her antihypertensive lisinopril 10 mg daily as prescribed with no recent changes. Screening EKG was reviewed and interpreted by me: Please report, sinus bradycardia 59 bpm, LVH, probable left atrial lodgment, atrial premature complex, otherwise nondiagnostic. Consider intracranial hemorrhage versus hypertensive emergency versus other. Plan to obtain CT imaging of the brain with CTA enhancement. 1430 --CTA of the head and neck were interpreted by radiology: 1. Patent carotid arteries in the neck. No hemodynamically significant stenosis. 2. Patent vertebral arteries in the neck.. No stenosis, thrombosis, nor vertebral artery dissection 3. Patent intracranial arteries. 4. No acute intracranial findings. 5. If clinically indicated follow-up MRI can be performed. Patient reassessed and continues to be severely hypertensive emergency. I will initiate treatment with nicardipine infusion. Plan to obtain MRI of the brain to rule out posterior circulation CVA. Plan for hospitalization. I called and spoke with the hospitalist on-call, Dr. Vasques, discussed ED presentation and course, he will meet the patient. Lab Data Lab results reviewed: Yes I reviewed the patient's lab results. Labs: Laboratory Tests Range/Units 03/23/24 12:10 WBC (4.4-10.8) 10^3/uL 8.02 RBC (3.93-5.22) 10^6/uL 4.36 Hgb (11.2-15.7) g/dL 13.4 Hct (36.0-46.0) % 40.3 MCV (80-95) fL 92 MCH (27.0-33.0) pg 30.7 MCHC (32.0-36.0) % 33.3 RDW (11.7-14.6) % 12.2 Plt Count (130-400) 10^3/uL 257 MPV (8.0-11.0) fL 11.6 H Immature Gran % % 0.5 Neutrophils % % 70.7 Lymphocytes % % 19.3 Monocytes % % 7.6 Eosinophils % % 0.9 Basophils % % 1.0 Nucleated RBC % (0.0-0.3) % 0.0 Absolute Neutrophils (1.2-6.7) 10^3/uL 5.67 Absolute Lymphocytes (1.2-3.4) 10^3/uL 1.55 Absolute Monocytes (0.1-0.8) 10^3/uL 0.61 Absolute Eosinophils (0.0-0.7) 10^3/uL 0.07 Absolute Basophils (0.0-0.2) 10^3/uL 0.08 Sodium (136-145) mmol/L 140 Potassium (3.5-5.1) mmol/L 4.1 Chloride (98-107) mmol/L 102 Carbon Dioxide (21.0-32.0) mmol/L 30.6 Anion Gap (3-11) mmol/L 7.4 BUN (7-18) mg/dL 16 Creatinine (0.55-1.02) mg/dL 0.8 Est GFR (CKD-EPI 2020) (mL/min/1.73m2) 75.84 Glucose (74-106) mg/dL 99 Calcium (8.5-10.1) mg/dL 10.3 H Magnesium (1.8-2.4) mg/dL 1.9 Total Bilirubin (0.2-1.0) mg/dL 0.97 AST (15-37) U/L 21 ALT (14-59) U/L 21 Alkaline Phosphatase (46-116) U/L 89 Troponin I (<or=51) ng/L 6 Total Protein (6.4-8.2) g/dL 7.8 Albumin (3.4-5.0) g/dL 4.3 Quality:[facility] Health Related Social Needs: No Data to Display Critical Care Time Critical Care Time Critical Care Time: Yes Total Critical Care Time: 45 Attestation: I spent greater than 45 minutes addressing this patient's immediate life threats. Please see MDM section of note. This time was spent engaged in work directly related to the patient's care, exclusive of separate procedures, and failure to initiate these interventions would have likely resulted in clinically significant or life threatening deterioration in the patient's condition. PFSH All Active Problems (Updated 03/23/24 @ 14:45 by Tereso Graham MD) Pre-syncope (Acute) Hypertensive emergency (Acute) Essential hypertension (Chronic) Hyperlipidemia (Chronic) Osteopenia (Chronic) Mitral valve regurgitation (Chronic) Echo 2023 Sensorineural hearing loss (SNHL) of both ears (Chronic) Hoarseness (Chronic) Followed by [facility] Gastroesophageal reflux disease (Chronic) Varicose veins of lower extremity (Chronic) Medical History Anxiety and depression Vertigo Surgical History H/O bilateral salpingectomy History of bilateral ligation of fallopian tubes History of unilateral oophorectomy Family History Mother , 95 Essential hypertension Stroke Father , 77 CAD (coronary artery disease) Heart disease Prostate cancer Brother , 40 CAD (coronary artery disease) Heart disease Sister Essential hypertension Sister No problems noted. Maternal Grandfather No problems noted. Paternal Grandfather No problems noted. Maternal Grandmother Cancer Paternal Grandmother , CHILDBIRTH No problems noted. Son No problems noted. Son Hyperlipidemia Daughter No problems noted. Social History Smoking/Tobacco Use Status: Never Second Hand Exposure: Yes Smoking risk assessment performed?: Yes Alcohol Intake: current Alcohol Intake frequency: a few times a week Alcohol type: wine Drug use: Never Substance use type: does not use Counseling given: No Counseling provided: none Caregiver/Support person: No Household members: spouse Housing: house Communication Needs: Hard of Hearing and Corrective Lenses Do you need help understanding health information?: Rarely Pets and animals: No Sexually active: Yes Do you think of yourself as: straight/heterosexual Current gender identity: female What is your relationship status?: How often do you talk on the phone with friends or family?: three or more times per week How often do you get together with friends or relatives?: twice per week How often do you attend jehovah's witness or zoroastrianism services?: 4 or more times per year Do you belong to any clubs or organized social groups?: yes Panel score (0-1 are the most socially isolated patients): 4 What type of physical activity do you participate in: walking and yoga Duration: 60-90 minutes/day Frequency: 3-4 times per week Melani/Caodaism: Spiritism Seatbelt use: always Helmet use: Yes Helmet use: always Drive intox or ride w/intox combine driver: No Do you feel safe at home: Yes Do you feel safe in your relationship?: Yes PAWSS Have you Been Recently Intoxicated or Drunk Within the Last 30 days?: No Have you Ever Experienced Previous Episodes of Alcohol Withdrawal?: No Have you ever Experienced Withdrawal Seizures?: No Have you ever Experienced Delirium Tremens(DT)s?: No Have you ever undergone Alcohol Rehabilitation Treatment (i.e, inpt ot outpatient treatment programs)?: No Have you ever Experienced Blackouts?: No Have you ever Combined Alcohol with other Downers within the last 90 days?: No Have you ever Combined Alcohol with any other Substance of Abuse during the last 90 days?: No Positive Blood Alcohol level on Presentation? [PCS.BAL]: No Evidence of Increased Autonomic Activity (i.e. HR>120, tremor, sweating, agitation, nausea)?: No Result: 0
[2024-03-23] MEDS: Lisinopril 10 MG TAB PO (12:45)
[2024-03-23] MEDS: Omnipaque 350 MG/ML 100 ML BTL IJ (13:03)
[2024-03-23] MEDS: Normal Saline - Diluent 50 ML VIAL IJ (13:04)
[2024-03-23 13:15] LABS: Abs Immature Grans 0.04 10^3/uL (0.0-0.06); Absolute Basophil Count 0.08 10^3/uL (0.0-0.2); Absolute Eosinophil Count 0.07 10^3/uL (0.0-0.7); Absolute Lymphocyte Count 1.55 10^3/uL (1.2-3.4); Absolute Monocyte Count 0.61 10^3/uL (0.1-0.8); Absolute Neutrophil Count 5.67 10^3/uL (1.2-6.7); Eosinophils % 0.9 %; HCT 40.3 % (36.0-46.0); HGB 13.4 g/dL (11.2-15.7); Immature Grans % 0.5 %; Lymphocytes % 19.3 %; MCH 30.7 pg (27.0-33.0); MCHC 33.3 % (32.0-36.0); MCV 92 fL (80-95); MPV 11.6 fL (8.0-11.0); Monocytes % 7.6 %; Neutrophils % 70.7 %; Platelet Count 257 10^3/uL (130-400); RBC 4.36 10^6/uL (3.93-5.22); RDW 12.2 % (11.7-14.6); RDW-SD 41.7 fL; WBC 8.02 10^3/uL (4.4-10.8)
[2024-03-23 13:33] LABS: ALT 21 U/L (14-59); AST 21 U/L (15-37); Albumin 4.3 g/dL (3.4-5.0); Alkaline Phosphatase 89 U/L (46-116); Anion Gap 7.4 mmol/L (3-11); BUN 16 mg/dL (7-18); Bilirubin, Total 0.97 mg/dL (0.2-1.0); CO2 30.6 mmol/L (21.0-32.0); CREATININE 0.8 mg/dL (0.55-1.02); Calcium 10.3 mg/dL (8.5-10.1); Chloride 102 mmol/L (98-107); Estimated GFR 75.84 (mL/min/1.73m2); Glucose 99 mg/dL (74-106); Magnesium 1.9 mg/dL (1.8-2.4); Potassium 4.1 mmol/L (3.5-5.1); Sodium 140 mmol/L (136-145); Total Protein 7.8 g/dL (6.4-8.2); Troponin I 6 ng/L (<or=51)
--- NOTE | 2024-03-23 13:45 | DI.MRI_ITS ---
Exam(s) MR BRAIN WO EXAM: MR BRAIN WO CLINICAL HISTORY: dizzy TECHNIQUE: Multiplanar multisequence MRI of the brain was performed. COMPARISON: Head CT performed earlier the same day. FINDINGS: VENTRICLES AND EXTRA AXIAL SPACES: Normal in size and morphology for the patient's age. MIDLINE SHIFT: None. CEREBRAL PARENCHYMA: No focus of restricted diffusion to suggest acute infarct. No space-occupying le chadd identified. No significant atrophy. Moderate scattered foci of high signal in the white matter consistent with sequela of chronic microvascular disease. BRAINSTEM/CEREBELLUM: High signal foci in the erlinda in the secondary to microvascular disease. VISUALIZED PARANASAL SINUSES: Clear. MASTOIDS:Clear. Vasculature: Normal flow void. PITUITARY GLAND: Unremarkable. ORBITS: Unremarkable. IMPRESSION: White matter changes of chronic microvascular disease. No acute abnormality. DATA REPOSITORY:
[2024-03-23 15:22] LABS: Troponin I 7 ng/L (<or=51)
--- NOTE | 2024-03-23 16:19 | W.PC.ACHO ---
Registration Status: Primary Language: Preferred Language: ED Information & Data Chief Complaint Dizzy/Sync 03/23/24 12:42 Triage Note patient state she was doing 03/23/24 12:04 exercises and when she got up she feels as if she was going to fall. she state she started feeling dizzy, she lay down and got up but the dizziness is not going away. she reported heart burn and nausea after no denies chest pain or pressure. But reported having a slight headache Medical / Surgical History (Last Reviewed 03/23/24 @ 12:38 by Tereso Graham MD) Anxiety and depression Vertigo (Last Reviewed 03/23/24 @ 12:38 by Tereso Graham MD) H/O bilateral salpingectomy History of bilateral ligation of fallopian tubes History of unilateral oophorectomy Most Recent Vital Signs Pulse 64 03/23/24 16:01 Pulse 63 03/23/24 16:01 Respiratory Rate 20 03/23/24 16:01 Respiratory Effort Normal, Non-Labored 03/23/24 12:12 Respiratory Pattern Normal 03/23/24 12:12 Blood Pressure 156/73 H 03/23/24 16:01 Blood Pressure Mean 104 03/23/24 16:01 Blood Pressure Position Supine 03/23/24 12:04 Pulse Oximetry 97 03/23/24 15:00 Oxygen Delivery Method Room Air 03/23/24 12:04 Oxygen Flow Rate 0 03/23/24 12:04 Pain Level 4 03/23/24 12:04 Allergies shrimp Allergy (Mild, Verified 03/23/24 12:15) Hives Treated with Benadryl, no respiratory distress gabapentin Adverse Reaction (Severe, Verified 03/23/24 12:15) HALLUCINATIONS Patient states she does not know what this is & never took it before BALSeiratherm Adverse Reaction (Intermediate, Uncoded 03/23/24 12:15) ITCHY EYES SEASONAL ALLERGIES Adverse Reaction (Intermediate, Uncoded 03/23/24 12:15) ITCHY AND RUNNY EYES Precautions Isolation Standard precaution 03/23/24 12:11 Active Medications Generic Name Dose Route Start Last Admin Trade Name Freq PRN Reason Stop Dose Admin Nicardipine HCl 25 mg/ 250 mls @ 50 mls/hr 03/23/24 14:00 03/23/24 15:44 Dextrose/Water IV 5 mg/hr INFUSION RAHUL 50 mls/hr Titration Protocol 5 MG/HR Iohexol 100 ml 03/23/24 13:15 03/23/24 13:03 Omnipaque 350 Mg/Ml 100 Ml Btl IJ 04/22/24 23:59 70 ml DIRECTED RAHUL Administration Sodium Chloride 50 ml 03/23/24 13:15 03/23/24 13:04 Normal Saline - Diluent 50 Ml Vial IJ 50 ml .FOR DI USE RAHUL Administration IV IV Catheter Type [Right Saline Lock Antecubital] IV Catheter Gauge [Right 18 Antecubital] Diet Orders Category Date Time Status Heart Healthy Eating [DIET] Nutrition 03/23/24 Dinner Active Diagnostics 03/23/24 03/23/24 03/23/24 Range/Units 15:19 15:09 14:46 WBC (4.4-10.8) 10^3/uL RBC (3.93-5.22) 10^6/uL Hgb (11.2-15.7) g/dL Hct (36.0-46.0) % MCV (80-95) fL MCH (27.0-33.0) pg MCHC (32.0-36.0) % RDW (11.7-14.6) % Plt Count (130-400) 10^3/uL MPV (8.0-11.0) fL Immature Gran % % Neutrophils % % Lymphocytes % % Monocytes % % Eosinophils % % Basophils % % Nucleated RBC % (0.0-0.3) % Absolute Neutrophils (1.2-6.7) 10^3/uL Absolute Lymphocytes (1.2-3.4) 10^3/uL Absolute Monocytes (0.1-0.8) 10^3/uL Absolute Eosinophils (0.0-0.7) 10^3/uL Absolute Basophils (0.0-0.2) 10^3/uL Sodium (136-145) mmol/L Potassium (3.5-5.1) mmol/L Chloride (98-107) mmol/L Carbon Dioxide (21.0-32.0) mmol/L Anion Gap (3-11) mmol/L BUN (7-18) mg/dL Creatinine (0.55-1.02) mg/dL Est GFR (CKD-EPI 2020) (mL/min/1.73m2) Glucose (74-106) mg/dL Calcium (8.5-10.1) mg/dL Ionized Calcium Pending Magnesium (1.8-2.4) mg/dL Total Bilirubin (0.2-1.0) mg/dL AST (15-37) U/L ALT (14-59) U/L Alkaline Phosphatase (46-116) U/L Troponin I 7 (<or=51) ng/L Total Protein (6.4-8.2) g/dL Albumin (3.4-5.0) g/dL PTH Intact Pending 03/23/24 Range/Units 12:10 WBC 8.02 (4.4-10.8) 10^3/uL RBC 4.36 (3.93-5.22) 10^6/uL Hgb 13.4 (11.2-15.7) g/dL Hct 40.3 (36.0-46.0) % MCV 92 (80-95) fL MCH 30.7 (27.0-33.0) pg MCHC 33.3 (32.0-36.0) % RDW 12.2 (11.7-14.6) % Plt Count 257 (130-400) 10^3/uL MPV 11.6 H (8.0-11.0) fL Immature Gran % 0.5 % Neutrophils % 70.7 % Lymphocytes % 19.3 % Monocytes % 7.6 % Eosinophils % 0.9 % Basophils % 1.0 % Nucleated RBC % 0.0 (0.0-0.3) % Absolute Neutrophils 5.67 (1.2-6.7) 10^3/uL Absolute Lymphocytes 1.55 (1.2-3.4) 10^3/uL Absolute Monocytes 0.61 (0.1-0.8) 10^3/uL Absolute Eosinophils 0.07 (0.0-0.7) 10^3/uL Absolute Basophils 0.08 (0.0-0.2) 10^3/uL Sodium 140 (136-145) mmol/L Potassium 4.1 (3.5-5.1) mmol/L Chloride 102 (98-107) mmol/L Carbon Dioxide 30.6 (21.0-32.0) mmol/L Anion Gap 7.4 (3-11) mmol/L BUN 16 (7-18) mg/dL Creatinine 0.8 (0.55-1.02) mg/dL Est GFR (CKD-EPI 2020) 75.84 (mL/min/1.73m2) Glucose 99 (74-106) mg/dL Calcium 10.3 H (8.5-10.1) mg/dL Ionized Calcium Magnesium 1.9 (1.8-2.4) mg/dL Total Bilirubin 0.97 (0.2-1.0) mg/dL AST 21 (15-37) U/L ALT 21 (14-59) U/L Alkaline Phosphatase 89 (46-116) U/L Troponin I 6 (<or=51) ng/L Total Protein 7.8 (6.4-8.2) g/dL Albumin 4.3 (3.4-5.0) g/dL PTH Intact Intake and Output - 24 Hour Total 03/23/24 11:56 thru 03/23/24 15:44 Intake Total 64.167 Balance 64.167 Weight 59.8 kg Intake: IV 64.167 Falls Risk Assessment History of Falls No History 03/23/24 12:42 Contributing Factors No Factors 03/23/24 12:42 Fall Total Score 0 03/23/24 12:42 Level of Risk Standard/Low Risk 03/23/24 12:42 v v v v v v v v v Sending and/or Receiving Nurses: Please use comment section below to note any information pertinent to the patient hand-off not included above. Information / Comments:all questions answered Report received from:Checo Mcghee RN
--- NOTE | 2024-03-23 17:59 | HPE_ITS ---
Date of service: 03/23/24 Time of Service: 16:05 Assessment and Plan Assessment and plan (1) Hypertensive emergency: Status: Acute Assessment and plan: Concern for hypertensive encephalopathy with acute onset of headache and dizziness in setting of severe hypertension. CTA and MRI reassuring of no cerebrovascular event. EKG reassuring, troponins negative, no ACS On nicardipine drip in ICU. Titrate for SBP 140-180. Continue lisinopril, increase dose add oral amlodipine Get TSH Not c/w pheochromocytoma with low pulse. Can send PRA/aldosterone (2) Hypercalcemia: Status: Acute Assessment and plan: This is new. Does not correct with albumin. Send ionized to confirm. She takes vitamin D, get level to make sure not toxic as well as PTH. Follow. (3) Mitral valve regurgitation: Status: Chronic Assessment and plan: No signs of heart failure. I don't think this is related to her presentation. (4) Hyperlipidemia: Status: Chronic Assessment and plan: continue statin (5) DVT prophylaxis: Status: Acute Assessment and plan: Not high risk per Tony score. TEDS/SCDs. History of Present Illness History of Present Illness Chief Complaint: dizzy Narrative: 78 yo F with HTN and mild/moderate mitral regurgitation but otherwise healthy who presented to the emergency room with persistent dizziness and headache. She was feeling well this morning, though she had been having some back/leg pain. She saw her massage therapist who thought it was piriformis syndrome and gave her cross leg stretches, which she was doing this morning about 10am on her back. She rolled to all fours, and stood up and had severe lightheadedness associated with nausea and some moderate frontal aching headache. She did not have spinning/vertigo, chest pain, or palpitations. She was sweaty. She did not loose conciousness. After a couple minutes she laid down on the couch to rest for 10 minutes and felt better. When she tried to walk again the symptoms returned and she could not walk. She has never had this before. She occasionally feels lightheaded with standing, but it usually goes away after a few seconds. She hasn't changed her medication or diet recently, and the lisinopril usually controls her blood pressure well. Review of Systems All systems reviewed & are unremarkable except as noted in HPI and below Constitutional Constitutional: Denies chills, Denies fever(s), Denies poor appetite and Denies weight loss Eyes Eyes: Reports blurry vision, Denies diplopia and Denies loss of vision ENT Ears, Nose, Mouth, and Throat: Denies change in voice, Denies dysphagia, Denies vertigo, Denies otalgia, Reports hearing loss (chronic, worse on left, no change), Denies nasal congestion, Denies nasal discharge, Reports disequilibrium and Denies sore throat Cardiovascular Cardiovascular: Denies palpitations and Denies dyspnea Respiratory Respiratory: Denies dyspnea Gastrointestinal Gastrointestinal: Denies dysphagia Neurologic Neurologic: Denies abnormal movements, Denies confusion, Denies vertigo, Denies localized weakness, Denies loss of vision, Denies seizure-like activity, Denies sensory deficit, Denies tremor(s) and Reports disequilibrium Psychiatric Psychiatric: Denies confusion and Denies mood swings Endocrine Endocrine: Denies palpitations Hematologic/Lymphatic Hematologic/Lymphatic: Denies easy bleeding PFSH All Active Problems (Updated 03/23/24 @ 18:49 by Sidney Aceves) Hypercalcemia (Acute) DVT prophylaxis (Acute) Pre-syncope (Acute) Hypertensive emergency (Acute) Mitral valve regurgitation (Chronic) Echo 2023 Osteopenia (Chronic) Sensorineural hearing loss (SNHL) of both ears (Chronic) Hyperlipidemia (Chronic) Hoarseness (Chronic) Followed by [facility] Gastroesophageal reflux disease (Chronic) Essential hypertension (Chronic) Varicose veins of lower extremity (Chronic) Medical History Anxiety and depression Vertigo Surgical History H/O bilateral salpingectomy History of bilateral ligation of fallopian tubes History of unilateral oophorectomy Family History Mother , 95 Essential hypertension Stroke Father , 77 CAD (coronary artery disease) Heart disease Prostate cancer Brother , 40 CAD (coronary artery disease) Heart disease Sister Essential hypertension Sister No problems noted. Maternal Grandfather No problems noted. Paternal Grandfather No problems noted. Maternal Grandmother Cancer Paternal Grandmother , CHILDBIRTH No problems noted. Son No problems noted. Son Hyperlipidemia Daughter No problems noted. Social History (Updated 03/23/24 @ 18:34 by Sidney Aceves) Smoking/Tobacco Use Status: Never Second Hand Exposure: Yes Smoking risk assessment performed?: Yes Alcohol Intake: current Alcohol Intake frequency: a few times a week Alcohol type: wine Drug use: Never Substance use type: does not use Counseling given: No Counseling provided: none Caregiver/Support person: No Household members: spouse Housing: house Communication Needs: Hard of Hearing and Corrective Lenses Do you need help understanding health information?: Rarely Pets and animals: No Sexually active: Yes Do you think of yourself as: straight/heterosexual Current gender identity: female What is your relationship status?: How often do you talk on the phone with friends or family?: three or more times per week How often do you get together with friends or relatives?: twice per week How often do you attend jainism or sikh services?: 4 or more times per year Do you belong to any clubs or organized social groups?: yes Panel score (0-1 are the most socially isolated patients): 4 What type of physical activity do you participate in: walking and yoga Duration: 60-90 minutes/day Frequency: 3-4 times per week Melani/Uatsdin: Synagogue Seatbelt use: always Helmet use: Yes Helmet use: always Drive intox or ride w/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 Lt Governor is her nephew. Meds Allergies and Home Medications Allergies Allergy/AdvReac Type Severity Reaction Status Date / Time shrimp Allergy Mild Hives Verified 03/23/24 12:15 gabapentin AdvReac Severe HALLUCINATI Verified 03/23/24 12:15 ONS BALSAM TREES AdvReac Intermediate ITCHY EYES Uncoded 03/23/24 12:15 SEASONAL ALLERGIES AdvReac Intermediate ITCHY AND Uncoded 03/23/24 12:15 RUNNY EYES Home Medications ?Medication ?Instructions ?Recorded ?Confirmed ?Type cholecalciferol (vitamin D3) 25 1,000 unit PO DAILY #100 tab-caps 04/13/14 03/23/24 History mcg (1,000 unit) capsule ibuprofen 200 mg tablet (Advil) 200 - 600 mg PO TID PRN 12/03/14 03/23/24 History acetaminophen 500 mg capsule 500 mg PO QID PRN 06/12/18 03/23/24 History methylcellulose (laxative) 500 mg 500 mg PO DAILY 08/02/19 03/23/24 History tablet (Fiber Laxative (methylcellulose)) rosuvastatin 5 mg tablet 5 mg PO DAILY #90 tabs 04/20/23 03/23/24 Rx triamcinolone acetonide 0.1 % 1 applic topical DAILY PRN 04/22/23 03/23/24 Rx topical cream pruritus #80 grams lisinopril 10 mg tablet 10 mg PO DAILY #90 tabs 08/16/23 03/23/24 Rx Exam Narrative Exam Narrative: GEN: Alert and oriented x 4, pleasant and cooperative, gives linear history. No acute distress at rest. HEENT: Head atraumatic. Conjunctiva clear, no icterus. PEERL, EOMI. No nystagmus, no rhinorrhea. MMM, OP benign. Neck is supple with no masses or lymphadenopathy, trachea midline LUNGS: CTAB with normal effort CV: RRR with no murmurs, gallops, or rubs. ABD: active bowel sounds, soft, nontender and nondistended. No masses. EXT: no cyanosis, clubbing, or edema MSK: No joint redness or swelling NEURO: CN 2-12 intact x hearing worse on left. No pronator drift. FNF and HTS slightly less coordinated on left. Normal strenght and sensation of 4 extremities. Normal speech and gait. DTRs symmetric, 3+ at patella umberto, 2+ otherwise, no clonus. No tremor SKIN: No rashes or open wounds. PSYCH: normal mood and affect Results Imaging EKG: report reviewed and image reviewed (Sinus rukhsana 59 with PACs, nl axis, nl intervals. LVH. No ischemia) Imaging Studies: CTA head/neck: 1. Patent carotid arteries in the neck. No hemodynamically significant stenosis. 2. Patent vertebral arteries in the neck.. No stenosis, thrombosis, nor vertebral artery dissection 3. Patent intracranial arteries. 4. No acute intracranial findings. 5. If clinically indicated follow-up MRI can be performed MRI Brain: White matter changes of chronic microvascular disease. No acute abnormality. Labs 03/23/24 12:10 03/23/24 12:10 Labs: Laboratory Results - last 24 hr 03/23/24 03/23/24 12:10 14:46 WBC 8.02 RBC 4.36 Hgb 13.4 Hct 40.3 MCV 92 MCH 30.7 MCHC 33.3 RDW 12.2 Plt Count 257 MPV 11.6 H Immature Gran % 0.5 Neutrophils % 70.7 Lymphocytes % 19.3 Monocytes % 7.6 Eosinophils % 0.9 Basophils % 1.0 Nucleated RBC % 0.0 Absolute Neutrophils 5.67 Absolute Lymphocytes 1.55 Absolute Monocytes 0.61 Absolute Eosinophils 0.07 Absolute Basophils 0.08 Sodium 140 Potassium 4.1 Chloride 102 Carbon Dioxide 30.6 Anion Gap 7.4 BUN 16 Creatinine 0.8 Est GFR (CKD-EPI 2020) 75.84 Glucose 99 Calcium 10.3 H Magnesium 1.9 Total Bilirubin 0.97 AST 21 ALT 21 Alkaline Phosphatase 89 Troponin I 6 7 Total Protein 7.8 Albumin 4.3 Last Vital Signs Temp 37.0 C 03/23/24 17:12 Pulse 67 03/23/24 17:46 Resp 18 03/23/24 17:46 BP 149/64 H 03/23/24 17:46 Pulse Ox 98 03/23/24 17:01 PAWSS Have you Been Recently Intoxicated or Drunk Within the Last 30 days?: No Have you Ever Experienced Previous Episodes of Alcohol Withdrawal?: No Have you ever Experienced Withdrawal Seizures?: No Have you ever Experienced Delirium Tremens(DT)s?: No Have you ever undergone Alcohol Rehabilitation Treatment (i.e, inpt ot outpatient treatment programs)?: No Have you ever Experienced Blackouts?: No Have you ever Combined Alcohol with other Downers within the last 90 days?: No Have you ever Combined Alcohol with any other Substance of Abuse during the last 90 days?: No Positive Blood Alcohol level on Presentation? [PCS.BAL]: No Evidence of Increased Autonomic Activity (i.e. HR>120, tremor, sweating, agitation, nausea)?: No Result: 0 Time Spent Time spent with Patient: >75 minutes Time was spent: preparing to see the patient(eg.review tests), obtaining and/or reviewing separately otained hiistory, ordering medications,tests, procedures, referring, communicating with other health medicare sales representative, indepentently interpreting results, counseling the patient and care coordination
[2024-03-24] VITALS (16 sets, daily range): BP systolic 81–145; BP diastolic 50–117; PULSE 41–66; RESP 10–21; TEMP 36–37.2; O2SAT 95–97
[2024-03-24 06:34] LABS: Anion Gap 4.7 mmol/L (3-11); BUN 18 mg/dL (7-18); CO2 32.3 mmol/L (21.0-32.0); CREATININE 0.9 mg/dL (0.55-1.02); Calcium 10.3 mg/dL (8.5-10.1); Chloride 106 mmol/L (98-107); Estimated GFR 65.84 (mL/min/1.73m2); Glucose 92 mg/dL (74-106); Potassium 4.2 mmol/L (3.5-5.1); Sodium 143 mmol/L (136-145); TSH (W/Ref FT4) 2.35 uIU/mL (0.36-3.74)
[2024-03-24 06:47] LABS: Vitamin D 25 Total 82.9 ng/mL (30-100)
--- NOTE | 2024-03-24 09:09 | PDOC.CMIN ---
Date of service: 03/24/24 Time of Service: 09:09 Care Management Initial Assmt Initial Assessment Reason for Hospitalization: Hypertensive emergency Functional Status/Living Situation Town of Residence: [facility] Employment Status: Retired Instrumental Activities of Daily Living (ADLs): Independent Advance Directives Advance Directives: Do you have an Advance Directive: Y 02/06/20 10:36 AD On File at [facility]: Y 02/06/20 10:36 Date Asked 02/05/20 02/06/20 10:36 AD Date Reviewed 03/23/24 03/23/24 16:18 COLST On File at [facility] COLST Date Scanned Code Status Resuscitation Status Full Code Insurance Coverage/Financial Issues Insurance: Medicare Accendo Medicare Supplement Care Team Visit Care Team Role Provider Type Vero Sanchez NP Primary Care Provider NURSE PRACTITIONER Tereso Graham MD Emergency Provider [facility] STAFF PHYSICIAN Sidney Aceves Admit Provider [facility] STAFF PHYSICIAN Attending Provider Discharge Potential Discharge Needs: PCP F/U Appt Anticipated Barriers to Discharge: None Identified Patient/Family Education Needs: Review discharge instructions, discuss Ask Me Three Transportation: Private vehicle Plan: Anticipate Analia will be discharged home with no new services when medically stable. She will follow up with her PCP and plan of care and transport with family. CM will follow and continue to support discharge planning concerns. Social Determinants of Health Screening Social Determinants of Health last assessed: 03/24/24 Will the Patient Participate in the Screening?: Yes Do you worry about having a steady place to live?: no Problems where you live: no known problems In the past 12 months, have you had to go without electric, gas, oil or water in your home?: no Have you or anyone in your house had to go without enough food to eat?: no Has lack of transportation kept you from medical appointments or from doing things needed for daily living?: no Has anyone in your life made you feel unsafe or unsupported?: no How hard is it for you to pay for the very basics like food, housing, medical care, and heating? Would you say it is:: Not hard at all Do you want help finding or keeping work or a job?: I do not need or want help If for any reason you need help with day-to-day activities such as bathing, preparing meals, shopping, managing finances, etc., do you get the help you need?: I don?t need any help How often do you feel lonely or isolated from those around you?: Sometimes Do you speak a language other than Swazi at home?: No Does the patient want assistance with any of the above?: No Health Related Social Needs Health related social needs: feeling lonely/isolated (Z60.8) PFSH All Active Problems (Updated 03/23/24 @ 18:49 by Sidney Aceves) Hypercalcemia (Acute) DVT prophylaxis (Acute) Pre-syncope (Acute) Hypertensive emergency (Acute) Essential hypertension (Chronic) Hyperlipidemia (Chronic) Osteopenia (Chronic) Mitral valve regurgitation (Chronic) Echo 2023 Sensorineural hearing loss (SNHL) of both ears (Chronic) Hoarseness (Chronic) Followed by [facility] Gastroesophageal reflux disease (Chronic) Varicose veins of lower extremity (Chronic) Medical History Anxiety and depression Vertigo Surgical History H/O bilateral salpingectomy History of bilateral ligation of fallopian tubes History of unilateral oophorectomy Family History Mother , 95 Essential hypertension Stroke Father , 77 CAD (coronary artery disease) Heart disease Prostate cancer Brother , 40 CAD (coronary artery disease) Heart disease Sister Essential hypertension Sister No problems noted. Maternal Grandfather No problems noted. Paternal Grandfather No problems noted. Maternal Grandmother Cancer Paternal Grandmother , CHILDBIRTH No problems noted. Son No problems noted. Son Hyperlipidemia Daughter No problems noted. Social History (Updated 03/23/24 @ 18:34 by Sidney Aceves) Smoking/Tobacco Use Status: Never Second Hand Exposure: Yes Smoking risk assessment performed?: Yes Alcohol Intake: current Alcohol Intake frequency: a few times a week Alcohol type: wine Drug use: Never Substance use type: does not use Counseling given: No Counseling provided: none Caregiver/Support person: No Household members: spouse Housing: house Communication Needs: Hard of Hearing and Corrective Lenses Do you need help understanding health information?: Rarely Pets and animals: No Sexually active: Yes Do you think of yourself as: straight/heterosexual Current gender identity: female What is your relationship status?: How often do you talk on the phone with friends or family?: three or more times per week How often do you get together with friends or relatives?: twice per week How often do you attend latter day or latter day services?: 4 or more times per year Do you belong to any clubs or organized social groups?: yes Panel score (0-1 are the most socially isolated patients): 4 What type of physical activity do you participate in: walking and yoga Duration: 60-90 minutes/day Frequency: 3-4 times per week Melani/Taoism: Christian Seatbelt use: always Helmet use: Yes Helmet use: always Drive intox or ride 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 Lt Governor is her nephew.
--- NOTE | 2024-03-24 09:14 | DSE_ITS ---
Date of service: 03/24/24 Time of Service: 09:14 DS: Diagnosis Discharge Diagnosis (1) Hypertensive emergency: Status: Acute (2) Hypercalcemia: Status: Acute (3) Mitral valve regurgitation: Status: Chronic (4) Hyperlipidemia: Status: Chronic (5) DVT prophylaxis: Status: Acute Discharge Plan Disposition Patient Disposition: Home Condition: Good Discharge Details Reason For Visit: hypertensive emergency Admit Date/Time: 03/23/24 15:10 Admit Provider: Sidney Aceves Attending Provider: Sidney Aceves [facility]: 78 yo active female with history of hypertension who presented with acute lightheadedness/pre-syncope and headaches and was found to have blood pressures consistently in the 230s/240s over 90/100s. She was evaluated for hypertensive emergency/encephalopathy and had a reassuring CTA of her head and neck and MRI. She was on nicardipine drip, which was discontinued the evening of her admission as the blood pressures came down. She was never tachycardic, in fact her pulse was in in the 50s at rest and 30s-40s while sleeping. Her blood pressures remained normal overnight and her dizziness and headache completely resolved. Her oral blood pressure medication lisinopril was not changed. PRA/aldosterone were sent and were pending. She reports blood pressure going up at times in the past, including an evaluation in the ED which occured in 2013. She will follow up with her primary care in 1-2 weeks on her blood pressure. Her TSH was normal. She describes some symptoms of APRIL (snoring and gasping for air at night) but did not desaturate here while sleeping. Mildly elevated calcium at 10.3 was noted with an albumin of 4.3. Mg and renal function were normal. Vitamin D was high normal at 82.9 and it was recommended she stop taking her calcium and vitamin D supplements. Ionized calcium was sent to confirm as was PTH. Home Meds and New Rx's Prescriptions: Continued acetaminophen 500 mg capsule 500 mg PO QID PRN Fiber Laxative(methylcellulos) 500 mg tablet 500 mg PO DAILY rosuvastatin 5 mg tablet 5 mg PO DAILY Qty: 90 3RF triamcinolone acetonide 0.1 % cream 1 applic topical DAILY PRN (Reason: pruritus) Qty: 80 0RF lisinopril 10 mg tablet 10 mg PO DAILY Qty: 90 3RF Discontinued cholecalciferol (vitamin D3) 1,000 UNIT capsule 1,000 unit PO DAILY Qty: 100 ibuprofen [Advil] 200 MG tablet 200 - 600 mg PO TID PRN Discharge Instructions Instructions: High blood pressure emergencies Additional Instructions: Continue the lisinopril. You can check your blood pressure occaisionally at home. Avoid ibuprofen or similar medications as these can raise blood pressure. Acetaminophen for pain is safer. Your calcium is a little high. You should STOP the vitamin D and calcium supplements. The parathyroid hormone test should return in 2 days or so. Activity:: Activity as Tolerated Equipment/Supplies:: No Equipment Needed Diet:: Low Sodium Discharge Orders Discharge Orders: Discharge Order (Routine); Ordered 03/24/24 Ordered By: Sidney Aceves DS: Summary Time Spent with Patient providing and/or coordinating discharge services: Greater than 30 minutes Status at Discharge Functional status at discharge: independent ambulation Overall status at discharge: patient is back to baseline Mental Status: mental status grossly normal Speech and Movement: speech and movement normal Mood: congruent mood Affect: normal affect Quality:SDOH Health Related Social Needs: Health related social needs feeling lonely/isolated (Z 60.8) Exam Narrative Exam Narrative: GEN: Alert and oriented x 4, pleasant and cooperative, gives linear history. No acute distress at rest. LUNGS: CTAB with normal effort CV: Regular and bradycardic with no murmurs, gallops, or rubs. EXT: no cyanosis, clubbing, or edema NEURO: Non-focal, CN grossly intact x hearing. Moving 4 extremities symmetrically with normal coordination. No tremor PSYCH: normal mood and affect Psych Mental Status: mental status grossly normal Speech and Movement: speech and movement normal Mood: congruent mood Affect: normal affect DS: Data Vitals/I&O Vitals and I&O: Vital Signs Temperature 37.2 C 03/24/24 06:11 Temperature Source Temporal Artery Scan 03/24/24 06:11 Pulse 42 L 03/24/24 06:04 Pulse 51 L 03/24/24 06:04 Respiratory Rate 14 03/24/24 06:04 Respiratory Effort Normal, Non-Labored 03/23/24 12:12 Respiratory Pattern Normal 03/23/24 12:12 Blood Pressure 123/64 03/24/24 06:04 Blood Pressure Mean 83 03/24/24 06:04 Blood Pressure Position Supine 03/23/24 17:12 Pulse Oximetry 95 03/24/24 01:01 Oxygen Delivery Method Room Air 03/24/24 01:39 Oxygen Flow Rate 0 03/24/24 01:39 Pain Level 0 03/24/24 01:39 Intake & Output 03/23/24 03/23/24 03/24/24 11:59 23:59 11:59 Intake Total 407.500 / 407.500 Output Total 850 / 850 400 / 400 Balance -442.500 / -442.500 -400 / -400 Weight 57.2 kg 56.4 kg Intake: IV 167.500 / 167.500 Oral 240 / 240 Output: Urine 850 / 850 400 / 400 Other: Urine Color Yellow Light Lara Urine Appearance Clear Clear Urine Odor Normal Data Completed and Pending Labs on day of discharge: Labs from last 24 hours 03/24/24 03/23/24 03/23/24 05:55 16:35 14:46 WBC RBC Hgb Hct MCV MCH MCHC RDW Plt Count MPV Immature Gran % Neutrophils % Lymphocytes % Monocytes % Eosinophils % Basophils % Nucleated RBC % Absolute Neutrophils Absolute Lymphocytes Absolute Monocytes Absolute Eosinophils Absolute Basophils Sodium 143 Potassium 4.2 Chloride 106 Carbon Dioxide 32.3 H Anion Gap 4.7 BUN 18 Creatinine 0.9 Est GFR (CKD-EPI 2020) 65.84 Glucose 92 Calcium 10.3 H Ionized Calcium Pending Magnesium Total Bilirubin AST ALT Alkaline Phosphatase Troponin I 7 Total Protein Albumin Renin Activity Pending Aldosterone Pending 25-OH Vitamin D Total 82.9 TSH 2.35 PTH Intact Pending 03/23/24 12:10 WBC 8.02 RBC 4.36 Hgb 13.4 Hct 40.3 MCV 92 MCH 30.7 MCHC 33.3 RDW 12.2 Plt Count 257 MPV 11.6 H Immature Gran % 0.5 Neutrophils % 70.7 Lymphocytes % 19.3 Monocytes % 7.6 Eosinophils % 0.9 Basophils % 1.0 Nucleated RBC % 0.0 Absolute Neutrophils 5.67 Absolute Lymphocytes 1.55 Absolute Monocytes 0.61 Absolute Eosinophils 0.07 Absolute Basophils 0.08 Sodium 140 Potassium 4.1 Chloride 102 Carbon Dioxide 30.6 Anion Gap 7.4 BUN 16 Creatinine 0.8 Est GFR (CKD-EPI 2020) 75.84 Glucose 99 Calcium 10.3 H Ionized Calcium Magnesium 1.9 Total Bilirubin 0.97 AST 21 ALT 21 Alkaline Phosphatase 89 Troponin I 6 Total Protein 7.8 Albumin 4.3 Renin Activity Aldosterone 25-OH Vitamin D Total TSH PTH Intact PFSH All Active Problems (Updated 03/23/24 @ 18:49 by Sidney Aceves) Hypercalcemia (Acute) DVT prophylaxis (Acute) Pre-syncope (Acute) Hypertensive emergency (Acute) Mitral valve regurgitation (Chronic) Echo 2023 Osteopenia (Chronic) Sensorineural hearing loss (SNHL) of both ears (Chronic) Hyperlipidemia (Chronic) Hoarseness (Chronic) Followed by [facility] Gastroesophageal reflux disease (Chronic) Essential hypertension (Chronic) Varicose veins of lower extremity (Chronic) Medical History Anxiety and depression Vertigo Surgical History H/O bilateral salpingectomy History of bilateral ligation of fallopian tubes History of unilateral oophorectomy Family History Mother , 95 Essential hypertension Stroke Father , 77 CAD (coronary artery disease) Heart disease Prostate cancer Brother , 40 CAD (coronary artery disease) Heart disease Sister Essential hypertension Sister No problems noted. Maternal Grandfather No problems noted. Paternal Grandfather No problems noted. Maternal Grandmother Cancer Paternal Grandmother , CHILDBIRTH No problems noted. Son No problems noted. Son Hyperlipidemia Daughter No problems noted. Social History (Updated 03/23/24 @ 18:34 by Sidney Aceves) Smoking/Tobacco Use Status: Never Second Hand Exposure: Yes Smoking risk assessment performed?: Yes Alcohol Intake: current Alcohol Intake frequency: a few times a week Alcohol type: wine Drug use: Never Substance use type: does not use Counseling given: No Counseling provided: none Caregiver/Support person: No Household members: spouse Housing: house Communication Needs: Hard of Hearing and Corrective Lenses Do you need help understanding health information?: Rarely Pets and animals: No Sexually active: Yes Do you think of yourself as: straight/heterosexual Current gender identity: female What is your relationship status?: How often do you talk on the phone with friends or family?: three or more times per week How often do you get together with friends or relatives?: twice per week How often do you attend religion or mandaen services?: 4 or more times per year Do you belong to any clubs or organized social groups?: yes Panel score (0-1 are the most socially isolated patients): 4 What type of physical activity do you participate in: walking and yoga Duration: 60-90 minutes/day Frequency: 3-4 times per week Melani/Adventist: Caodaism Seatbelt use: always Helmet use: Yes Helmet use: always Drive intox 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 Lt Governor is her nephew. Time Spent with Patient Time Spent with Patient: <45 minutes Time was spent: preparing to see the patient(eg.review tests), obtaining and/or reviewing separately otained hiistory, ordering medications,tests, procedures, referring, communicating with other health geriatric personal care aide, indepentently interpreting results, counseling the patient and care coordination
[2024-03-24] MEDS: Lisinopril 10 MG TAB PO (10:47)
[2024-03-24] MEDS: Rosuvastatin 5 MG TAB PO (10:47)
--- NOTE | 2024-03-24 17:47 | PDOC.CMPRO ---
Date of service: 03/24/24 Time of Service: 17:47 Care Management Progress Note Progress Note Text Progress Note Text: Analia was admitted on 03/23/24 with a hypertensive emergency. Her systolic blood pressures were in the 230s and 240s and she was experiencing a headache and lightheadedness. She underwent an MRI and CTA of head and neck which did not raise any concerns. She was placed on a nicardipine drip and her blood pressures returned to normal. She was discharged home this morning and will follow up with her PCP in 1-2 weeks. Social Determinants of Health Screening Social Determinants of Health last assessed: 03/24/24 Will the Patient Participate in the Screening?: Yes Do you worry about having a steady place to live?: no Problems where you live: no known problems In the past 12 months, have you had to go without electric, gas, oil or water in your home?: no Have you or anyone in your house had to go without enough food to eat?: no Has lack of transportation kept you from medical appointments or from doing things needed for daily living?: no Has anyone in your life made you feel unsafe or unsupported?: no How hard is it for you to pay for the very basics like food, housing, medical care, and heating? Would you say it is:: Not hard at all Do you want help finding or keeping work or a job?: I do not need or want help If for any reason you need help with day-to-day activities such as bathing, preparing meals, shopping, managing finances, etc., do you get the help you need?: I don?t need any help How often do you feel lonely or isolated from those around you?: Sometimes Do you speak a language other than German at home?: No Does the patient want assistance with any of the above?: No Health Related Social Needs Health related social needs: feeling lonely/isolated (Z60.8)
[2024-03-26 11:09] LABS: Parathyroid Hormone,Intact 23.2 pg/mL (19.0-88.0)
[2024-03-27 12:30] LABS: Renin Activity, Plasma 0.6 ng/mL/h
== END 2024-03-24 11:20 | disposition home or self-care (01) | DRG 305 ==
LOC: ER 16:18 → ICU 16:20
PROVIDERS: Admitting Provider Family Medicine; Emergency Provider Student in an Organized Health Care Education/Training Program; PCP Nurse Practitioner Family; Visit Provider Family Medicine
DX: I16.1 Hypertensive emergency (principal); E83.52 Hypercalcemia; I34.0 Nonrheumatic mitral (valve) insufficiency; E78.5 Hyperlipidemia, unspecified; R42 Dizziness and giddiness; R51.9 Headache, unspecified; I10 Essential (primary) hypertension; R26.2 Difficulty in walking, not elsewhere classified; M85.80 Other specified disorders of bone density and structure, unspecified site; K21.9 Gastro-esophageal reflux disease without esophagitis; H90.3 Sensorineural hearing loss, bilateral; R49.0 Dysphonia; Z79.899 Other long term (current) drug therapy
CPT/HCPCS: 00123; 36415; 70496; 70498; 80048; 80053; 82306; 93005; 96365; 96366; 99291; 70551; 82088; 82330; 83735; 83970; 84244; 84443; 84484; 85025; 93010; 99223; 99239; J2404; J3490

== ENCOUNTER 2024-07-06 06:25 | Day surgery (SDC) | payer MEDICARE, SELFPAY ==
--- NOTE | 2024-07-05 20:04 | W.PREOPHP ---
Assessment and Plan Assessment and plan (1) Nuclear age-related cataract, left eye: Status: Acute Assessment and plan: Assessment: Visually significant cataract, left eye. Plan: Cataract extraction with intraocular lens implantation right eye followed by left eye. (2) Nuclear age-related cataract, right eye: Status: Acute Assessment and plan: Assessment: Visually significant cataract, right eye. Plan: Cataract extraction with intraocular lens implantation right eye followed by left eye. History of Present Illness History of Present Illness Chief Complaint: progressive decreased vision both eyes Narrative: The patient is a 78-year-old lady who presented with complaints of progressive decreased vision in both eyes at both distance and near. She has significant difficulty with glare when driving at night. She has to enlarge the phone on her reading device. She has difficulty with depth perception and has fallen and broken her shoulder due to poor depth perception. Review of Systems All systems reviewed & are unremarkable except as noted in HPI and below PFSH All Active Problems Nuclear age-related cataract, right eye (Acute) Nuclear age-related cataract, left eye (Acute) Excessive cerumen in right ear canal (Acute) Generalized anxiety disorder (Chronic) Essential hypertension (Chronic) Hyperlipidemia (Chronic) Osteopenia (Chronic) Mitral valve regurgitation (Chronic) Echo 2023 Sensorineural hearing loss (SNHL) of both ears (Chronic) Hoarseness (Chronic) Followed by [facility] prn Medical History Vertigo Surgical History H/O bilateral salpingectomy History of bilateral ligation of fallopian tubes History of unilateral oophorectomy Family History Mother , 95 Essential hypertension Stroke Father , 77 CAD (coronary artery disease) Heart disease Prostate cancer Brother , 40 CAD (coronary artery disease) Heart disease Sister Essential hypertension Dementia Sister No problems noted. Maternal Grandfather No problems noted. Paternal Grandfather No problems noted. Maternal Grandmother Cancer Paternal Grandmother , CHILDBIRTH No problems noted. Son No problems noted. Son Hyperlipidemia Daughter No problems noted. Social History Smoking/Tobacco Use Status: Former Tobacco Use Quit Date: 02/28/1965 Second Hand Exposure: Yes Smoking risk assessment performed?: Yes Alcohol Intake: current Alcohol Intake frequency: a few times a week Alcohol type: wine Drug use: Never Substance use type: does not use Counseling given: No Counseling provided: none Caregiver/Support person: No Household members: spouse Housing: house Communication Needs: Hard of Hearing and Corrective Lenses Do you need help understanding health information?: Rarely Pets and animals: No Sexually active: Yes Do you think of yourself as: straight/heterosexual Current gender identity: female What is your relationship status?: How often do you talk on the phone with friends or family?: three or more times per week How often do you get together with friends or relatives?: twice per week How often do you attend scientology or bahai services?: 4 or more times per year Do you belong to any clubs or organized social groups?: yes Panel score (0-1 are the most socially isolated patients): 4 What type of physical activity do you participate in: walking and yoga Duration: 60-90 minutes/day Frequency: 3-4 times per week Melani/Temple: Bahai Seatbelt use: always Helmet use: Yes Helmet use: always 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 Do you feel safe at home: Yes Do you feel safe in your relationship?: Yes Meds Allergies and Home Medications Allergies Allergy/AdvReac Type Severity Reaction Status Date / Time shrimp Allergy Mild Hives Verified 07/06/24 06:47 gabapentin AdvReac Severe HALLUCINATI Verified 07/06/24 06:47 ONS Home Medications ?Medication ?Instructions ?Recorded ?Confirmed ?Type acetaminophen 500 mg capsule 500 mg PO QID PRN 06/12/18 07/06/24 History methylcellulose (laxative) 500 mg 500 mg PO DAILY 08/02/19 07/06/24 History tablet (Fiber Laxative (methylcellulose)) triamcinolone acetonide 0.1 % 1 applic topical DAILY PRN 04/22/23 07/06/24 Rx topical cream pruritus #80 grams rosuvastatin 5 mg tablet 5 mg PO DAILY #90 tabs 04/13/24 07/06/24 Rx lisinopril 20 mg tablet 20 mg PO DAILY #90 tabs 04/20/24 07/06/24 Rx citalopram 10 mg tablet 5 mg (1/2 x 10 mg) PO DAILY #50 05/23/24 07/06/24 Rx tabs Exam Eyes Other: Most recent ocular examination is significant for corrected visual acuity of 20/30 OD, 20/40 OS. Extraocular Dorothy is normal. Intraocular pressure is 10 OD, 9 OS. Slit-lamp examination reveals pupils dilating to 6 mm OU. Moderate bilateral nuclear cataract is present. Funduscopic examination shows disc cupping of 0.35 OU with normal vessels, macula, peripheral retina and vitreous. Resp Auscultation: clear to auscultation bilaterally Cardio Rate: regular rate Rhythm: regular rhythm
--- NOTE | 2024-07-06 06:14 | ANES.PREOP_ITS ---
General Info Date of Service Date Performed: 07/06/24 Height: 5 ft 5 in Weight: 58.57 kg Body Mass Index (BMI): 21.4 Surgical Procedure: Operation Date: 07/06/24 07:40 Proposed Procedure Side Surgeon p Cataract Extraction with IOL Implant Left Jasvir Peacock MD Meds Allergies and Home Medications Allergies Allergy/AdvReac Type Severity Reaction Status Date / Time shrimp Allergy Mild Hives Verified 07/06/24 06:47 gabapentin AdvReac Severe HALLUCINATI Verified 07/06/24 06:47 ONS Home Medication ?Medication ?Instructions ?Recorded acetaminophen 500 mg capsule 500 mg PO QID PRN 06/12/18 methylcellulose (laxative) 500 mg 500 mg PO DAILY 08/02/19 tablet (Fiber Laxative (methylcellulose)) triamcinolone acetonide 0.1 % 1 applic topical DAILY PRN 04/22/23 topical cream pruritus #80 grams rosuvastatin 5 mg tablet 5 mg PO DAILY #90 tabs 04/13/24 lisinopril 20 mg tablet 20 mg PO DAILY #90 tabs 04/20/24 citalopram 10 mg tablet 5 mg (1/2 x 10 mg) PO DAILY #50 05/23/24 tabs Current Visit Medications: Current Medications Generic Name Dose Route Start Last Admin Trade Name Freq PRN Reason Stop Dose Admin Acetaminophen 1,000 mg 07/06/24 06:00 Acetaminophen 500 Mg Tab PO 08/05/24 05:59 Q4H PRN PRN Balanced Salt Solution 500 ml 07/06/24 06:00 Balanced Salt Soln.-Plus 500 Ml Bag OP 08/05/24 05:59 DIRECTED [facility] Miscellaneous Medication 0 ml 07/06/24 06:00 Prednisolone 1%, Moxifloxacin 0.5%, Bromfenac 0.09% 5.6ml Btl OS 08/05/24 05:59 DIRECTED [facility] Miscellaneous Medication 0 ml 07/06/24 06:00 Tropicam./Phenyleph. (1/2.5%) 5 Ml Btl OS 08/05/24 05:59 DIRECTED [facility] Tetracaine HCl 0 ml 07/06/24 06:00 Tetracaine 0.5% 4 Ml Btl OS 08/05/24 05:59 DIRECTED [facility] PFSH Active Problems Active Problems: Problem Status Onset Code Nuclear age-related cataract, right eye Acute H25.11 Nuclear age-related cataract, left eye Acute H25.12 Excessive cerumen in right ear canal Acute H61.21 Generalized anxiety disorder Chronic F41.1 Essential hypertension Chronic I10 Hyperlipidemia Chronic E78.5 Osteopenia Chronic M85.80 Mitral valve regurgitation Chronic I34.0 Sensorineural hearing loss (SNHL) of both ears Chronic H90.3 Hoarseness Chronic R49.0 Medical History Medical History Vertigo Surgical History Surgical History H/O bilateral salpingectomy History of bilateral ligation of fallopian tubes History of unilateral oophorectomy Tobacco Smoking/Tobacco Use Status: Former Tobacco Use Passive smoking exposure: No Second hand exposure: Yes Alcohol Alcohol Intake: current Alcohol intake frequency: a few times a week Alcohol type: wine Substance Use Substance use: Never Substance use type: does not use Counseling provided: none Vital Signs and Lab Results Vital Signs Most Recent Vital Signs in EMR: Temp Pulse Resp BP Pulse Ox 36.2 C L 55 L 16 194/89 H 100 07/06/24 06:43 07/06/24 06:43 07/06/24 06:43 07/06/24 06:43 07/06/24 06:43 Lab Results Blood Type / Crossmatch: No Data to Display Complete Blood Count: No Data to Display Complete Metabolic Panel: No Data to Display Liver Function Panel: No Data to Display Coagulation Panel: No Data to Display Cardiac Panel: No Data to Display Arterial Blood Gas: No Data to Display Venous Blood Gas: No Data to Display Pancreas Panel: No Data to Display Thyroid Panel: No Data to Display Infectious Disease: No Data to Display Blood Cultures: No Data to Display Toxicology Panel: No Data to Display Anesthesia Assessment and Plan Anesthesia History Personal History: No History of Anesthesia Complications Family History: No Family History of Anesthesia Complications Exercise Tolerance Exercise Tolerance: Metabolic Equivalents>4 Cardiac & Pulmonary Exam Cardiac Exam: Normal S1/S2 Heart Sounds Pulmonary Exam: Clear Bilateral Breath Sounds Implantable Cardiac Device Does patient have a Pacemaker or an ICD?: No Airway Exam Known Difficult Airway: No Mallampati Class: 3 Mouth Opening: Normal (> 3cm) Thyromental Distance: Less than 3 cm Neck Range of Motion: Limited ROM Neck Circumference: Normal Teeth Condition: Normal Dentition ASA Classification ASA Score: ASA 2 Emergency Case?: No NPO Status NPO Status: NPO Clears >2 hours, Solids >8 hours Anesthesia Plan Resuscitation Status: Full Code Anesthesia Technique: MAC Anesthesia Airway Planned: Natural Airway Monitors Used: Standard Monitors Preoperative Comments:: 79 yo female for cataract removal. No MKO Sig PMHx: HTN (lisinopril), anxiety (citalopram), hoarseness. ECG: sinus rukhsana, ? LAE, LVH. ECHO: LVEF 60%, mild/mod MR, trace AR, RVSP 27 mmhg
[2024-07-06] MEDS: Tropicam./Phenyleph. (1/2.5%) 5 ML BTL OS ×3 (06:41→06:56)
[2024-07-06 06:43] VITALS: BP 194/89; PULSE 55; RESP 16; TEMP 36.2; O2SAT 100
[2024-07-06 07:05] VITALS: BMI 21.4
[2024-07-06] MEDS: Lidocaine 1% Pres-Free 5 ML VIAL (07:33)
[2024-07-06] MEDS: Moxifloxacin-PF 1 MG/ML VIAL (07:34)
[2024-07-06] MEDS: Phenylephrine/Lidocaine (15/10) MG/ML 1 ML VIAL (07:34)
[2024-07-06] MEDS: Povidone-Iodine Ophth 30 ML BTL (07:35)
[2024-07-06] MEDS: Duovisc Viscoelastic System EACH 1 EACH (07:35)
[2024-07-06] MEDS: Prednisolone 1%, Moxifloxacin 0.5%, Bromfenac 0.09% 5.6ML BTL OS (07:36)
[2024-07-06] MEDS: Balanced Salt Soln.-PLUS 500 ML BAG OP (07:36)
[2024-07-06] MEDS: Tetracaine 0.5% 4 ML BTL OS (07:37)
--- NOTE | 2024-07-06 07:59 | ROE_ITS ---
Operative Note Operative Note PRE-OP DIAGNOSIS: Nuclear cataract, left eye POST-OP DIAGNOSIS: same PROCEDURE: Cataract extraction using phacoemulsification with intraocular lens implant, left eye SURGEON: Jasvir Peacock ANESTHESIA TYPE: Local By Surgeon and MAC Refer to Anesthesia Record PATHOLOGY: none sent COMPLICATIONS: None Patient was transported to: same day Patient's condition: stable Implants: Odilon Clareon [id number] Indications: Progressive decreased vision due to cataract, left eye Procedure Description: CATARACT SURGERY OPERATIVE REPORT PREOPERATIVE DIAGNOSIS: Nuclear cataract, left eye POSTOPERATIVE DIAGNOSIS: Same OPERATION: Cataract extraction using phacoemulsification with posterior chamber intraocular lens implant, left eye. IOL: IOL Laboratory Chemical Assistant/Model: Odilon Clareon [id number] IOL Power: + 22.0 diopters IOL Serial Number: [id number] Optic Diameter: 6.0mm Haptic/Overall Diameter: 13.0mm PHACO INFO: Odilon ROAM Dataurion Vision System with OZil and Active Fluidics Cumulative Dispersed Energy (CDE): 22.72 seconds SURGEON: Jasvir Peacock MD, NAHOMI ANESTHESIA: Monitored Anesthesia Care (MAC), with local sub-tenon's anesthetic infiltration COMPLICATIONS: None SPECIMENS: None INDICATIONS FOR PROCEDURE: The patient is a 79-year-old lady with history of diminished visual acuity in brit th eyes secondary to the development of dense bilateral nuclear cataract. She is significantly symptomatic that she desires cataract surgery in attempt to improve and maximize her vision. See office notes for detailed information. PROCEDURE: The correct surgical eye was identified and marked as the left eye and the pupil was dilated in the preoperative area using mydriatics and cycloplegics. The dilated pupil size was 7.0 mm. The patient elected to proceed without oral sedation. The patient was brought to the operating room where cardiopulmonary monitoring was instituted and surgical time-out was performed, confirming the correct operative eye and IOL power. Topical anesthesia was administered and ophthalmic povidone-iodine 5% was instilled into the conjunctival fornices. The tyrone-ocular area was prepped with Betadine 10% solution and draped in the usual sterile fashion for intraocular surgery, including an aperture drape. A Tegaderm transparent film dressing was cut in half and used to cover the lashes and lid margins. Care was taken to sequester the lashes and lid margins under the Tegaderm dressing. A lid speculum was placed between the lids of the operative eye and the Odilon LuxOR Revalia operating microscope was maneuvered into position. María Elena scissors were then used to make a conjunctival buttonhole approximately 6mm posterior to the limbus in the inferonasal quadrant. Blunt dissection was carried out to expose bare sclera, and a blunt-tipped sub-tenon?s anesthesia cannula was introduced and passed posteriorly along the globe where non- preserved plain lidocaine was injected into posterior sub-Tenon?s space. A sideport knife was used to make a paracentesis port. Intraocular phenylephrine/lidocaine was injected into the anterior chamber. The anterior chamber was then filled with viscoelastic. A keratome knife was used construct a two-plane clear corneal tunnel extending 2.0mm into clear cornea. A flap was raised on the anterior capsule and capsulorhexis forceps were used to complete a continuous curvilinear capsulorhexis of 5.0 mm. Balanced salt solution was then used to perform cortical cleaving hydrodissection and nuclear hydrodelineation until the lens could be freely rotated within the capsular bag. The lens nucleus was then disassembled and removed within the capsular bag and iris plane using phacoemulsification. Residual cortical material was removed using the irrigation/aspiration handpiece. The posterior capsule was carefully polished to remove as much residual lens epithelial cells as safely possible. The capsular bag was then inflated and the anterior chamber deepened with viscoelastic. The lens implant described above was inserted into the capsular bag using the Odilon Autonome Injector. A Kuglen hook was used to dial the IOL into position. Residual viscoelastic was then removed first from posterior to the IOL, then from the anterior chamber using the I/A handpiece. The lens implant was noted to center nicely within the capsular bag. The incisions were stromally hydrated, and the anterior chamber was reformed using BSS. Then 0.5cc of moxifloxacin 1.0mg/ml were injected into the capsular bag and anterior chamber. The incisions were checked with a Weck spear and found to be secure. Several drops of ophthalmic povidone-iodine 5% were then applied to the eye followed by two drops of combination steroid/NSAID/antibiotic solution. The drapes were removed and a clear plastic protective eye shield was placed over the eye. The patient was then returned to Same Day Surgery in stable condition. Date of Procedure: 07/06/24
--- NOTE | 2024-07-06 07:59 | W.PM.DSUDISC ---
Date of service: 07/06/24 Discharge Plan Disposition Patient Disposition: Home Discharge Details Attending Provider: Jasvir ePacock Primary Care Provider: Vero Sanchez Home Meds and New Rx's Prescriptions: No Action acetaminophen 500 mg capsule 500 mg PO QID PRN Fiber Laxative(methylcellulos) 500 mg tablet 500 mg PO DAILY lisinopril 20 mg tablet 20 mg PO DAILY Qty: 90 3RF citalopram 10 mg tablet 5 mg PO DAILY Qty: 50 3RF triamcinolone acetonide 0.1 % cream 1 applic topical DAILY PRN (Reason: pruritus) Qty: 80 0RF rosuvastatin 5 mg tablet 5 mg PO DAILY Qty: 90 3RF Discharge Instructions Stand Alone Forms: DSU Post-Op CataractJay (DSU) Discharge Orders Discharge Orders: Discharge Order (Routine); Ordered 07/06/24 Ordered By: Jasvir Peacock DS: Diagnosis Discharge Diagnosis (1) Nuclear age-related cataract, left eye: Status: Resolved
[2024-07-06 08:00] VITALS: BP 201/85; PULSE 50; RESP 18; TEMP 36.5; O2SAT 99
--- NOTE | 2024-07-06 09:11 | W.ANESPOSTOP ---
Postoperative Evaluation Date, Time and Location Date Performed: 07/06/24 Time Performed: 08:00 Patient Location: Day Surgery Unit Vital Signs Most Recent Imported Vital Signs: Most Recent Vital Signs Temp Pulse Resp BP Pulse Ox 36.5 C 50 L 18 201/85 H 99 07/06/24 08:00 07/06/24 08:00 07/06/24 08:00 07/06/24 08:00 07/06/24 08:00 Pain Score Most Recent Pain Score: Most Recent Pain Score Pain Level 0 07/06/24 08:00 Assessment Mental Status: Awake (Alert & Oriented to Patient Baseline) Airway and Respiratory Function: Patent airway with normal (patient baseline) respiratory exam Cardiovascular Function: Hemodynamically Stable Hydration Status: Adequately Hydrated Nausea & Vomiting: No Nausea or Vomiting Pain: Pt. Denies Any Pain Peripheral Nerve Block: Patient did not receive a nerve block
== END 2024-07-06 08:20 | disposition home or self-care (01) ==
LOC: SUR 06:26
PROVIDERS: PCP Nurse Practitioner Family; Visit Provider Ophthalmology
PROC: (CPT 66984; principal; 2024-07-06 07:30)
DX: H25.12 Age-related nuclear cataract, left eye (principal); I10 Essential (primary) hypertension; F41.9 Anxiety disorder, unspecified
CPT/HCPCS: 66984; 00123; V2632; J2003

== ENCOUNTER 2024-07-20 14:05 | Day surgery (SDC) | payer MEDICARE, SELFPAY ==
[2024-07-20 14:27] VITALS: BP 168/101; PULSE 47; RESP 17; TEMP 36.3; O2SAT 98
[2024-07-20] MEDS: Tropicam./Phenyleph. (1/2.5%) 5 ML BTL OD ×3 (14:37→14:47)
--- NOTE | 2024-07-20 15:06 | W.ANESPRE ---
General Info Date of Service Date Performed: 07/20/24 Height: 5 ft 6 in Weight: 59.5 kg Body Mass Index (BMI): 21.2 Surgical Procedure: Operation Date: 07/20/24 16:40 Proposed Procedure Side Surgeon p Cataract Extraction with IOL Implant Right Jasvir Peacock MD Meds Allergies and Home Medications Allergies Allergy/AdvReac Type Severity Reaction Status Date / Time shrimp Allergy Mild Hives Verified 07/20/24 14:37 gabapentin AdvReac Severe HALLUCINATI Verified 07/20/24 14:37 ONS Home Medication ?Medication ?Instructions ?Recorded acetaminophen 500 mg capsule 500 mg PO QID PRN 06/12/18 methylcellulose (laxative) 500 mg 500 mg PO DAILY 08/02/19 tablet (Fiber Laxative (methylcellulose)) triamcinolone acetonide 0.1 % 1 applic topical DAILY PRN 04/22/23 topical cream pruritus #80 grams rosuvastatin 5 mg tablet 5 mg PO DAILY #90 tabs 04/13/24 lisinopril 20 mg tablet 20 mg PO DAILY #90 tabs 04/20/24 citalopram 10 mg tablet 5 mg (1/2 x 10 mg) PO DAILY #50 05/23/24 tabs Current Visit Medications: Current Medications Generic Name Dose Route Start Last Admin Trade Name Freq PRN Reason Stop Dose Admin Acetaminophen 1,000 mg 07/20/24 06:25 Acetaminophen 500 Mg Tab PO 08/19/24 06:24 Q4H PRN PRN Balanced Salt Solution 500 ml 07/20/24 06:25 Balanced Salt Soln.-Plus 500 Ml Bag OP 08/19/24 06:24 DIRECTED RAHUL Miscellaneous Medication 0 ml 07/20/24 06:25 Prednisolone 1%, Moxifloxacin 0.5%, Bromfenac 0.09% 5.6ml Btl OD 08/19/24 06:24 DIRECTED RAHUL Miscellaneous Medication 0 ml 07/20/24 06:25 07/20/24 14:47 Tropicam./Phenyleph. (1/2.5%) 5 Ml Btl OD 08/19/24 06:24 1 drp DIRECTED RAHUL Administration Tetracaine HCl 0 ml 07/20/24 06:25 Tetracaine 0.5% 4 Ml Btl OD 08/19/24 06:24 DIRECTED RAHUL PFSH Active Problems Active Problems: Problem Status Onset Code Nuclear age-related cataract, right eye Acute H25.11 Nuclear age-related cataract, left eye Resolved H25.12 Excessive cerumen in right ear canal Acute H61.21 Generalized anxiety disorder Chronic F41.1 Essential hypertension Chronic I10 Hyperlipidemia Chronic E78.5 Osteopenia Chronic M85.80 Mitral valve regurgitation Chronic I34.0 Sensorineural hearing loss (SNHL) of both ears Chronic H90.3 Hoarseness Chronic R49.0 Medical History Medical History Vertigo Surgical History Surgical History H/O bilateral salpingectomy History of bilateral ligation of fallopian tubes History of unilateral oophorectomy Tobacco Smoking/Tobacco Use Status: Former Tobacco Use Passive smoking exposure: No Second hand exposure: Yes Alcohol Alcohol Intake: current Alcohol intake frequency: a few times a week Alcohol type: wine Substance Use Substance use: Never Substance use type: does not use Counseling provided: none Vital Signs and Lab Results Vital Signs Most Recent Vital Signs in EMR: Most Recent Vital Signs Temp Pulse Resp BP Pulse Ox 36.3 C L 47 L 17 168/101 H 98 07/20/24 14:27 07/20/24 14:27 07/20/24 14:27 07/20/24 14:27 07/20/24 14:27 Lab Results Blood Type / Crossmatch: No Data to Display Complete Blood Count: No Data to Display Complete Metabolic Panel: No Data to Display Liver Function Panel: No Data to Display Coagulation Panel: No Data to Display Cardiac Panel: No Data to Display Arterial Blood Gas: No Data to Display Venous Blood Gas: No Data to Display Pancreas Panel: No Data to Display Thyroid Panel: No Data to Display Infectious Disease: No Data to Display Blood Cultures: No Data to Display Toxicology Panel: No Data to Display Imaging and Studies Imaging and Studies Study information below may be from another EMR and interpreted by another provider. Please see original notes in EMR for more complete details. EKG Summary: EKG PATIENT NAME: Analia Milner UNIT #: [id number] ORDERING PROVIDER: Tereso Graham M.D. PRIMARY CARE PROVIDER: VERO NUNEZ NP DATE/TIME OF SERVICE: 03/23/24 1203 : 1945 PERFORMING LOCATION: ICU APPROVED REPORT Exam: Resting ECG Reason for Exam: weakness Patient Location: E HR:59 bpm ECG Measurements Heart Rate 59 AXIS DC 155 P 56 QRSd 106 QRS 9 QT 446 T27 QTc 438 Conclusion Sinus bradycardia...rate< 60 Atrial premature complex...SV complex w/ short R-R interval Probable left atrial enlargement...P >50mS, <-0.10mV V1 Left ventricular hypertrophy...multiple LVH criteria <Electronically signed by TERESO GRAHAM MD in [facility]> E-Sign Date: 03/23/24 E-Sign Time: 1536 ADDENDUM APPROVED REPORT Exam: Resting ECG Reason for Exam: weakness Patient Location: E HR:59 bpm ECG Measurements Heart Rate 59 AXIS DC 155 P 56 QRSd 106 QRS 9 QT 446 T27 QTc 438 Conclusion Sinus bradycardia...rate< 60 Atrial premature complex...SV complex w/ short R-R interval Probable left atrial enlargement...P >50mS, <-0.10mV V1 Left ventricular hypertrophy...multiple LVH criteria I have reviewed and I agree with the emergency room physician's ECG interpretation. Electronically signed by: <Electronically signed by Diana Tavera M.D. in [facility]> 03/27/24 1018 Cosigned by: Echocardiogram Summary: Patient Name: Analia Milner Unit #: [id number] Loc: DI Ordering Provider: Vero Nunez NP Status: REG CLI Primary Care Provider: Vero Nunez NP Date of Exam: 05/13/23 Sex: F Admission Date: 05/13/23 : 1945 Age: 77 APPROVED REPORT EXAM: Comprehensive 2D, Doppler, and color-flow Echocardiogram Patient Location: Out-Patient [place] Scientist: Renu Yin RDCS (AE) Indications: Systolic murmur Other Information Study Quality: Adequate Conclusion Normal left ventricular wall thickness and chamber size.. Wall motion normal. Diastolic function is normal for age. EF is 60% Normal right ventricular size and function Both atria are normal in size Trileaflet aortic valve with trace regurgitation Normal mitral valve with mild/moderate regurgitation Estimated right ventricular systolic pressure is 27 mmHg Ascending aorta measures 3.54 cm Wall motion Left Ventricle The left ventricle is normal size. The left ventricular systolic function is normal. The left ventricular ejection fraction is within the normal range. There is normal left ventricular wall thickness. There is normal LV segmental wall motion. There is no ventricular septal defect visualized. LVEF is 60%. Right Ventricle The right ventricle is normal size. The right ventricular systolic function is normal. Atria The left atrium size is normal. The right atrium size is normal. The interatrial septum is intact with no evidence for an atrial septal defect. Aortic Valve The aortic valve is normal in structure. Aortic valve is trileaflet. There is no aortic valvular stenosis. Trace aortic regurgitation. Mitral Valve The mitral valve is normal in structure. No evidence of mitral valve stenosis. Mild to moderate mitral regurgitation. Tricuspid Valve The tricuspid valve is normal in structure. There is no tricuspid valve stenosis. Trace tricuspid regurgitation. The RVSP is 27.4 mmHg. Pulmonic Valve The pulmonary valve is normal in structure. There is no pulmonic valvular stenosis. Trace to mild pulmonic regurgitation. Great Vessels Aortic root is mildly dilated. The ascending aorta is mildly dilated. Aortic arch is normal in caliber. IVC is normal in size and collapses >50% with inspiration. Pericardium There is no pericardial effusion. 2D Dimensions IVSD d PLAX 0.88 cm F: 0.6-1.0Ao Root d 3.52 cm F: 2.7 - 3.3 LVPW d PLAX 0.90 cm F: 0.6 - 1.0Ao Asc Diam d 3.54 cm F: 2.3 - 3.1 LVID d PLAX 4.90 cm F: 3.8 - 5.2 LVDs 3.43 cm F: 2.2 - 3.5 LV EF Teichholz 57.2 % FS30.10 % LV EDV (Teich)113.0 mL LV ESV (Teich)48.4 mL M-Mode TAPSE 2.59 cm (M/F) >1.7 Auto EF LV EDV V6Q857.0 mLLV EDV M4L661.2 mLLV EDV BP141.1 mL LV ESV A4C56.8 mLLV ESV A2C74.0 mLLV ESV BP66.7 mL LVEF(%) A4C52.7 %LVEF(%) A2C52.9 %LVEF(%) BP52.7 % LV SV A4C63.2 mlLV SV A2C83.2 mlLV SV BP74.4 ml LV CO A4C2.8 L/minLV CO A2C3.7 L/minLV CO BP3.2 L/min HR A4C44.01 BPMHR A2C44.01 BPMLV EDV Index (BP) LA Volume LA Length A4C5.0 cmLA Length A2C5.0 cm LA Area A4C s 18.59 cm2LA Area A2C s 18.63 cm2 LA Vol A4C A-L58.53 mLLA Vol A2C A-L58.44 mLLA Vol Biplane A-L58.7 mL LA Vol/BSA A4C A-LLA Vol/BSA A2C A-LLA Vol/BSA BP A-L 35.1 mL/m2 LA Vol A4C MOD54.5 mLLA Vol A2C MOD54.6 mLLA Vol BP MOD54.6 mL RA Volume RA Area A4C15.7 cm2RA ESV A4C (A-L)45.6mLRA Vol/BSA A4C A-L RA Length A4C4.6 cmRA ESV A4C (MOD)43.2mL LV Diastology MV E' medial0.077 (>0.07 m/s)MV E Vmax 0.87 (0.4-1.3 m/s) MV E/E' MED11.40 (<14)MV A Vmax 0.55 (0.4-1.3 m/s) MV E' lateral0.087 (>0.1 m/s)E/A Ratio 1.6 MV E/E' LAT10.00 (<14) MV E' Average0.082 m/s MV E/E'(average)10.65 Aortic Valve AoV Vmax1.17 m/sLVOT Vmax 0.97 m/s AoV Peak Grad5.5 mmHgLVOT Peak Grad 3.8 mmHg AoV Area (Vmax)2.22 [id number] VTI0.240 m AoV VTI0.305 mLVOT Mean Grad 1.9 mmHg AoV Mean Silas.0.81 m/sLVOT SV 64.36 mL AoV Mean Grad3.0 mmHgLVOT Diam s 1.80 cm AoV Area (VTI)2.11 cm2 Velocity Ratio 0.83 Mitral Valve MV DT 175 (160-240 msec)MR Vmax 5.35 m/s MV Vmax TIPS 0.81 m/sMR VTI 2.475 m MV Mean Grad 0.8 (<2mmHg)MR Peak Grad 114.7 mmHg MV VTI 0.361 mMR Mean Grad 87.1 mmHg Pulmonary Valve PV Vmax 0.85 (0.5-1.5 m/s)RVOT Vmax 0.51 m/s PV Peak Grad 2.9 mmHgRVOT Peak Gr.1.0 mmHg PV Mean Vel0.52 m/sRVOT VTI0.156 m PV Mean Grad 1.3 mmHgRVOT Mean Gr.0.6 mmHg Tricuspid Valve RA Pressure 3.00 mmHgTR Vmax 2.47 m/s TV S'0.14 m/sTR Peak Grad 24.3 mmHg RVSP (TR) 27.4 mmHg Ordered By: Vero Nunez NP CC: Dictated By: Diana Tavera M.D. 05/13/23 0947 <Electronically signed by Diana Tavera M.D. in [place]> 05/13/23 1014 Transcribed By: Diana Tavera MD 05/13/23 5498 This is privileged, confidential information intended only for the provider named. Any use or distribution by any person other than this provider is strictly prohibited. If you receive this report in error, please notify us immediately at [phone] and return the original report to us at the address above. Thank-you. Anesthesia Assessment and Plan Anesthesia History Personal History: No History of Anesthesia Complications Family History: No Family History of Anesthesia Complications Exercise Tolerance Exercise Tolerance: Metabolic Equivalents>4 Cardiac & Pulmonary Exam Cardiac Exam: Normal S1/S2 Heart Sounds Pulmonary Exam: Clear Bilateral Breath Sounds Implantable Cardiac Device Does patient have a Pacemaker or an ICD?: No Airway Exam Known Difficult Airway: No Mallampati Class: 3 Mouth Opening: Normal (> 3cm) Thyromental Distance: Less than 3 cm Neck Range of Motion: Limited ROM Neck Circumference: Normal Teeth Condition: Normal Dentition ASA Classification ASA Score: ASA 2 Emergency Case?: No NPO Status NPO Status: NPO Clears >2 hours, Solids >8 hours Anesthesia Plan Resuscitation Status: Full Code Anesthesia Technique: MAC Anesthesia Airway Planned: Natural Airway Monitors Used: Standard Monitors Preoperative Comments:: 79 yo female for cataract removal. No MKO Sig PMHx: HTN (lisinopril), anxiety (citalopram), hoarseness. ECG: sinus rukhsana, ? LAE, LVH. ECHO: LVEF 60%, mild/mod MR, trace AR, RVSP 27 mmhg
[2024-07-20 15:07] VITALS: BMI 21.2
[2024-07-20] MEDS: Balanced Salt Soln.-PLUS 500 ML BAG OP (15:54)
[2024-07-20] MEDS: Prednisolone 1%, Moxifloxacin 0.5%, Bromfenac 0.09% 5.6ML BTL OD (15:55)
[2024-07-20] MEDS: Tetracaine 0.5% 4 ML BTL OD (15:56)
[2024-07-20] MEDS: Moxifloxacin-PF 1 MG/ML VIAL (15:56)
[2024-07-20] MEDS: Lidocaine 1% Pres-Free 5 ML VIAL (15:56)
[2024-07-20] MEDS: Povidone-Iodine Ophth 30 ML BTL (15:57)
[2024-07-20] MEDS: Phenylephrine/Lidocaine (15/10) MG/ML 1 ML VIAL (15:57)
[2024-07-20] MEDS: Duovisc Viscoelastic System EACH 1 EACH (15:58)
--- NOTE | 2024-07-20 16:15 | W.PM.DSUDISC ---
Date of service: 07/20/24 Discharge Plan Disposition Patient Disposition: Home Discharge Details Attending Provider: Jasvir Peacock Primary Care Provider: Vero Sanchez Home Meds and New Rx's Prescriptions: No Action acetaminophen 500 mg capsule 500 mg PO QID PRN Fiber Laxative(methylcellulos) 500 mg tablet 500 mg PO DAILY lisinopril 20 mg tablet 20 mg PO DAILY Qty: 90 3RF citalopram 10 mg tablet 5 mg PO DAILY Qty: 50 3RF triamcinolone acetonide 0.1 % cream 1 applic topical DAILY PRN (Reason: pruritus) Qty: 80 0RF rosuvastatin 5 mg tablet 5 mg PO DAILY Qty: 90 3RF Discharge Instructions Stand Alone Forms: [facility] Post-Op CataractJay ([facility]U) Discharge Orders Discharge Orders: Discharge Order (Routine); Ordered 07/20/24 Ordered By: Jasvir Peacock DS: Diagnosis Discharge Diagnosis (1) Nuclear age-related cataract, right eye: Status: Resolved
--- NOTE | 2024-07-20 16:15 | W.PM.OP ---
Operative Note Operative Note PRE-OP DIAGNOSIS: Nuclear cataract, right eye POST-OP DIAGNOSIS: same PROCEDURE: Cataract extraction using phacoemulsification with intraocular lens implant, right eye SURGEON: Jasvir Peacock ANESTHESIA TYPE: Local By Surgeon and MAC Refer to Anesthesia Record ESTIMATED BLOOD LOSS: 0 PATHOLOGY: none sent COMPLICATIONS: None Patient was transported to: same day Patient's condition: stable Implants: Odilon Clareon [id number] Indications: Progressive decreased vision due to cataract, right eye Procedure Description: CATARACT SURGERY OPERATIVE REPORT PREOPERATIVE DIAGNOSIS: Nuclear cataract, right eye POSTOPERATIVE DIAGNOSIS: Same OPERATION: Cataract extraction using phacoemulsification with posterior chamber intraocular lens implant, right eye. IOL: IOL Locomotive Electrician/Model: Odilon Clareon [id number] IOL Power: + 22.5 diopters IOL Serial Number: [id number] Optic Diameter: 6.0mm Haptic/Overall Diameter: 13.0mm PHACO INFO: Odilon Centurion Vision System with OZil and Active Fluidics Cumulative Dispersed Energy (CDE): 11.37 seconds SURGEON: Jasvir Peacock MD, NAHOMI ANESTHESIA: Monitored Anesthesia Care (MAC), with local sub-tenon's anesthetic infiltration COMPLICATIONS: None SPECIMENS: None INDICATIONS FOR PROCEDURE: The patient is a 79-year-old lady with history of diminished visual acuity in both eyes secondary to the development of bilateral nuclear cataract. She has already undergone cataract surgery in the left eye and is doing well postoperatively. She now presents for cataract surgery in the right eye. See office notes for detailed information. PROCEDURE: The correct surgical eye was identified and marked as the right eye and the pupil was dilated in the preoperative area using mydriatics and cycloplegics. The dilated pupil size was 7.0 mm. The patient elected to proceed without oral sedation. The patient was brought to the operating room where cardiopulmonary monitoring was instituted and surgical time-out was performed, confirming the correct operative eye and IOL power. Topical anesthesia was administered and ophthalmic povidone-iodine 5% was instilled into the conjunctival fornices. The tyrone-ocular area was prepped with Betadine 10% solution and draped in the usual sterile fashion for intraocular surgery, including an aperture drape. A Tegaderm transparent film dressing was cut in half and used to cover the lashes and lid margins. Care was taken to sequester the lashes and lid margins under the Tegaderm dressing. A lid speculum was placed between the lids of the operative eye and the Odilon LuxOR Revalia operating microscope was maneuvered into position. María Elena scissors were then used to make a conjunctival buttonhole approximately 6mm posterior to the limbus in the inferonasal quadrant. Blunt dissection was carried out to expose bare sclera, and a blunt-tipped sub-tenon?s anesthesia cannula was introduced and passed posteriorly along the globe where non-preserved plain lidocaine was injected into posterior sub-Tenon?s space. A sideport knife was used to make a paracentesis port. Intraocular phenylephrine/lidocaine was injected into the anterior chamber. The anterior chamber was then filled with viscoelastic. A keratome knife was used to construct a two--plane clear corneal tunnel extending 2.0mm into clear cornea. A flap was raised on the anterior capsule and capsulorhexis forceps were used to complete a continuous curvilinear capsulorhexis of 5.5 mm. Balanced salt solution was then used to perform cortical cleaving hydrodissection and nuclear hydrodelineation until the lens could be freely rotated within the capsular bag. The lens nucleus was then disassembled and removed within the capsular bag and iris plane using phacoemulsification. Residual cortical material was removed using the I/A handpiece. The posterior capsule was carefully polished to remove as much residual lens epithelial cells as safely possible. The capsular bag was then inflated and the anterior chamber deepened with cohesive viscoelastic. The lens implant described above was inserted into the capsular bag using the Odilon Autonome Injector. A Kuglen hook was used to dial the IOL into position. Residual viscoelastic was then removed first from posterior to the IOL, then from the anterior chamber using the I/A handpiece. The lens implant was noted to center nicely within the capsular bag. The incisions were stromally hydrated, and the anterior chamber was reformed using BSS. Then 0.5cc of moxifloxacin 1.0mg/ml were injected into the capsular bag and anterior chamber. The incisions were checked with a Weck spear and found to be secure. Several drops of ophthalmic povidone-iodine 5% were then applied to the eye followed by two drops of combination steroid/NSAID/antibiotic solution. The drapes were removed and a clear plastic protective eye shield was placed over the eye. The patient was then returned to Same Day Surgery in stable condition. Date of Procedure: 07/20/24
[2024-07-20 16:19] VITALS: BP 189/75; PULSE 58; RESP 16; TEMP 36.8; O2SAT 99
--- NOTE | 2024-07-20 16:25 | W.ANESPOSTOP ---
Postoperative Evaluation Date, Time and Location Date Performed: 07/20/24 Time Performed: 16:20 Patient Location: Day Surgery Unit Vital Signs Most Recent Imported Vital Signs: Most Recent Vital Signs Temp Pulse Resp BP Pulse Ox 36.8 C 58 L 16 168/101 H 99 07/20/24 16:19 07/20/24 16:19 07/20/24 16:19 07/20/24 14:27 07/20/24 16:19 Pain Score Most Recent Pain Score: Most Recent Pain Score Pain Level 0 07/20/24 16:19 Assessment Mental Status: Awake (Alert & Oriented to Patient Baseline) Airway and Respiratory Function: Patent airway with normal (patient baseline) respiratory exam Cardiovascular Function: Hemodynamically Stable Hydration Status: Adequately Hydrated Nausea & Vomiting: No Nausea or Vomiting Pain: Pt. Denies Any Pain Peripheral Nerve Block: Patient did not receive a nerve block
== END 2024-07-20 16:41 | disposition home or self-care (01) ==
LOC: SUR 14:05
PROVIDERS: PCP Nurse Practitioner Family; Visit Provider Ophthalmology
PROC: (CPT 66984; principal; 2024-07-20 16:30)
DX: H25.11 Age-related nuclear cataract, right eye (principal); Z98.42 Cataract extraction status, left eye
CPT/HCPCS: 66984; 00123; V2632; J2003

== ENCOUNTER → 2025-01-14 01:23 | Outpatient (CLI) | payer MEDICARE, SELFPAY ==
--- NOTE | 2025-01-14 07:00 | DI.NM_ITS ---
APPROVED REPORT Exam: Exercise Treadmill Patient Location: Out-Patient Room/Bed: Stress Nurse: Britt Amaro RN Ordering Provider:CHRIS NUNEZ, Contact Number: [phone] BMI: 21.78 Baseline Rhythm: Sinus Bradycardia. Comment: Rare PVC's; ? Biphasic/Inverted T waves in leads aVL and V2. Indications: TIA; Chest Pressure; Other Chest Pain. Medical History Medical History: Anxiety; Hearing Loss; HLD; HTN; MV Regurgitation; ? TIA. Cardiac Medications: Aspirin; Citalopram; Clopidogrel; Lisinopril; Rosuvastatin. Allergies: Gabapentin. Cardiac Risk Factors: Family Hx; HLD; HTN. Previous Cardiac Procedures: None. Pretest Chest Pain Characteristics: None. Exercise History: Physically active. Physical Disabilities: None. Lung Sounds: Clear bilaterally throughout, anterior and posterior. Heart Sounds: S1 and S2 auscultated. Stress Test Details Test: Exercise stress testing was performed using a Hank protocol. Nuclear Acquisition: Rest Tc-99m/Stress Tc-99m 1 day Rest Isotope: Tc-99m Sestamibi. Dose: 10.0 Date: 01/14/2025 Injection Time: 0910 Stress Isotope: Tc-99m Sestamibi. Dose: 30.0 Date: 01/14/2025 Injection Time: 1050 HR Resting HR Supine: 58 bpm Max Heart Rate (APMHR): 142 bpm Resting HR Standin bpm Target HR (85% APMHR): 121 bpm Max HR Achieved: 138 bpm % of APMHR: 97 Recovery HR: 58 bpm HR response to stress: Normal HR response to stress. BP Resting BP Supine: 180/88 mmHg Resting BP Standin/80 mmHg Max BP: 180/88 mmHg Recovery BP: 142/82 mmHg BP response to stress: Normal blood pressure response to stress. ECG Resting ECG: Sinus Bradycardia. Ectopy: Occasional PVC's. Comment: ? Biphasic/Inverted T waves in leads aVL and V2. Stress ECG: Sinus Tachycardia. ST Change: Diffuse upsloping ST depression, Nondiagnostic resting ST abnormalities. Lead(s): Diffuse. Stage: [address] Deviation: 1-3 mm Arrhythmia: None. Comment: ? Biphasic/Inverted T waves in leads aVL and V2. Recovery ECG: Sinus Rhythm. Recovery ST Change: Diffuse upsloping ST depression, Nondiagnostic resting ST abnormalities. Lead(s): Diffuse. Recovery ST Deviation: 1-3 mm Recovery Arrhythmia: Occasional PVC's; Occasional PAC's. Comment: ? Biphasic/Inverted T waves in leads aVL and V2. Clinical Reason for Termination: Target HR Achieved Stress Symptoms: None. Exercise duration: 03 min30 sec Highest Stage Reached: Stage 2: 2.5 mph at 12% grade. Exercise capacity: 5.22 METs Angina Score: None Rate Pressure Product: 11026 Stress ECG Conclusion 1. Resting electrocardiogram showed left ventricular hypertrophy 2. Patient exercised on the Hank protocol for 3 minutes and 30 seconds, a workload of 5 METS 3. Normal heart rate and blood pressure response to exercise. The patient achieved 97% of maximal predicted heart rate for age 4. EKG at peak exercise demonstrated diffuse ST depression and scooping, suggestive of myocardial ischemia 5. There were no significant dysrhythmias 6. See MPI report Stress Test Summary STAGE Time (mins) Speed (mph) Grade (%) HR BP SpO2 SYMPTOMS METS Supine 58 180/88 98 Standing 55 176/80 98 1 3 1.7 10 128 96 4.5 2 6 2.5 12 136 96 7 1 min recovery 111 178/92 98 3 min recovery 67 162/88 99 6 min recovery 58 142/82 98 Pt. peformed a NM MPI stress test using the Hank protocol. MPI stress test was stopped when pt. achieved a heart rate higher than the target heart rate. Pt. was noted to have resting ST-T wave abnormalities; ? biphasic/inverted T waves in leads aVL and V2. Pt. was noted to have diffuse upsloping ST depression in almost every lead during the end of Stage 2 of exercise and Stage [address] depression recovered back to baseline before the end of the stress test. Pt. denied any symptoms throughout the stress test. Pt. was conversing pleasantly with nursing staff upon leaving the Stress Lab. Pt. left ambulatory in no apparent distress. MPI Conclusion Myocardial perfusion was normal. There was no ischemia or evidence of prior infarction Ejection fraction was 55% with normal wall motion
== END ==
LOC: DI 01:23
PROVIDERS: PCP Nurse Practitioner Family; Visit Provider Nurse Practitioner Family
DX: R07.89 Other chest pain (principal); G45.9 Transient cerebral ischemic attack, unspecified; R94.39 Abnormal result of other cardiovascular function study
CPT/HCPCS: 78452; 93016; 93018; 93017

== ENCOUNTER → 2025-02-13 00:03 | Outpatient (CLI) | payer MEDICARE, SELFPAY ==
--- NOTE | 2025-02-13 08:30 | DI.US_ITS ---
APPROVED REPORT EXAM: Comprehensive 2D, Doppler, and color-flow Echocardiogram Patient Location: Out-Patient [facility] Operator: Renu Yin RDCS (AE) Indications: TIA Other Information Study Quality: Adequate Conclusion Normal left ventricular wall thickness and chamber size. Ejection fraction is 60%. Wall motion is normal Normal right ventricular size and function Both atria are normal in size There are no structural valvular abnormalities Mild mitral and tricuspid regurgitation. Trace aortic regurgitation Estimated right ventricular systolic pressure is 29 mmHg Wall motion Left Ventricle The left ventricle is normal size. The left ventricular systolic function is normal. The left ventricular ejection fraction is within the normal range. There is normal left ventricular wall thickness. There is normal LV segmental wall motion. There is no ventricular septal defect visualized. LVEF is 60%. Right Ventricle The right ventricle is normal size. The right ventricular systolic function is normal. Atria The left atrium size is normal. The right atrium size is normal. The interatrial septum is intact with no evidence for an atrial septal defect. Aortic Valve The aortic valve is normal in structure. Aortic valve is trileaflet. There is no aortic valvular stenosis. Trace aortic regurgitation. Mitral Valve The mitral valve is normal in structure. No evidence of mitral valve stenosis. Mild mitral regurgitation. Tricuspid Valve The tricuspid valve is normal in structure. There is no tricuspid valve stenosis. Mild tricuspid regurgitation. The RVSP is 28.9 mmHg. Pulmonic Valve The pulmonary valve is normal in structure. There is no pulmonic valvular stenosis. Trace pulmonic regurgitation. Great Vessels The aortic root is normal in size. The ascending aorta is normal in size. Aortic arch is normal in caliber. IVC is normal in size and collapses >50% with inspiration. Pericardium There is no pericardial effusion. 2D Dimensions IVSD d PLAX 0.93 cm F: 0.6-1.0 Ao Root d 3.50 cm F: 2.7 - 3.3 LVPW d PLAX 0.90 cm F: 0.6 - 1.0 Ao Asc Diam d 3.30 cm F: 2.3 - 3.1 LVID d PLAX 4.70 cm F: 3.8 - 5.2 LVDs 3.20 cm F: 2.2 - 3.5 LV EF Teichholz 59.5 % FS 31.56 % LV EDV (Teich) 100.1 mL LV ESV (Teich) 40.5 mL M-Mode TAPSE 3.02 cm (M/F) >1.7 Auto EF LV EDV A4C 123.8 mL LV EDV A2C 126.9 mL LV EDV BP 127.2 mL LV ESV A4C 49.7 mL LV ESV A2C 50.9 mL LV ESV BP 50.7 mL LVEF(%) A4C 59.8 % LVEF(%) A2C 59.9 % LVEF(%) BP 60.1 % LV SV A4C 74.1 ml LV SV A2C 76.0 ml LV SV BP 76.4 ml LV CO A4C 3.2 L/min LV CO A2C 3.4 L/min LV CO BP 3.3 L/min HR A4C 42.56 BPM HR A2C 44.45 BPM LV EDV Index (BP) LA Volume LA Length A4C 5.1 cm LA Length A2C 4.7 cm LA Area A4C s 18.00 cm2 LA Area A2C s 15.25 cm2 LA Vol A4C A-L 54.24 mL LA Vol A2C A-L 42.01 mL LA Vol Biplane A-L 49.6 mL LA Vol/BSA A4C A-L LA Vol/BSA A2C A-L LA Vol/BSA BP A-L 29.4 mL/m2 LA Vol A4C MOD 49.9 mL LA Vol A2C MOD 37.3 mL LA Vol BP MOD 44.6 mL RA Volume RA Area A4C 16.4 cm2 RA ESV A4C (A-L) 49.6mL RA Vol/BSA A4C A-L RA Length A4C 4.6 cm RA ESV A4C (MOD) 48.2mL LV Diastology MV E' medial 0.097 (>0.07 m/s) MV E Vmax 1.00 (0.4-1.3 m/s) MV E/E' MED 10.33 (<14) MV A Vmax 0.60 (0.4-1.3 m/s) MV E' lateral 0.108 (>0.1 m/s) E/A Ratio 1.7 MV E/E' LAT 9.30 (<14) MV E' Average 0.103 m/s MV E/E'(average) 9.79 Aortic Valve AoV Vmax 1.32 m/s LVOT Vmax 1.03 m/s AoV Peak Grad 7.0 mmHg LVOT Peak Grad 4.2 mmHg AoV Area (Vmax) 2.51 cm2 LVOT VTI 0.249 m AoV VTI 0.343 m LVOT Mean Grad 2.1 mmHg AoV Mean Silas. 0.90 m/s LVOT SV 80.37 mL AoV Mean Grad 3.7 mmHg LVOT Diam s 2.00 cm AoV Area (VTI) 2.34 cm2 AV Regurg Peak Gr. 7.01 mmHg Velocity Ratio 0.78 Mitral Valve MV DT 206 (160-240 msec) MV Vmax TIPS 1.01 m/s MV Mean Grad 1.2 (<2mmHg) MV VTI 0.393 m Pulmonary Valve PV Vmax 0.84 (0.5-1.5 m/s) RVOT Vmax 0.69 m/s PV Peak Grad 2.8 mmHg RVOT Peak Gr. 1.9 mmHg PV Mean Silas 0.63 m/s RVOT VTI 0.181 m PV Mean Grad 1.7 mmHg RVOT Mean Gr. 1.2 mmHg Tricuspid Valve RA Pressure 3.00 mmHg TR Vmax 2.54 m/s TV S' 0.17 m/s TR Peak Grad 25.8 mmHg RVSP (TR) 28.9 mmHg
== END ==
LOC: DI 00:03
PROVIDERS: PCP Nurse Practitioner Family; Visit Provider Nurse Practitioner Family
DX: G45.9 Transient cerebral ischemic attack, unspecified (principal); I08.3 Combined rheumatic disorders of mitral, aortic and tricuspid valves
CPT/HCPCS: 93306